=== PATIENT | female | born 1960 | race Caucasian/White ===

== ENCOUNTER 2023-11-11 16:19 | Outpatient (OUT) | payer OTHER, SELFPAY ==
--- NOTE | 2023-11-11 16:33 | XR_ITS ---
The [address] [address] Patient Name: IRAJ MOFFETT MRN: [id number] date: 1960 Sex: F Assigned Patient Location: LAB Current Patient Location: LAB Accession/Order Number: [id number] Exam Date: 11/11/2023 16:45 Report Date: 11/11/2023 19:17 At the request of: ULISES BACK Procedure: XR cervical spine 5V EXAM: XR cervical spine 5V HISTORY: neck pain M54.2 COMPARISON: 04/10/2020, 08/26/2018 x-ray. TECHNIQUE: AP, open-mouth AP, lateral, right and left oblique x-ray cervical spine. FINDINGS: Normal mineralization without fracture or focal bone lesion. Mild C3-4 disc space narrowing, C5-6 disc space narrowing at C6-7 disc space narrowing with minimal osteophytes unchanged. C2-3, C4-5 disc space is normal. Neural foramina are not optimally visualized on the left, lower right foramina widely patent. Upper right foramen are not optimally visualized. Normal prevertebral soft tissues and airway. Surgical clips from previous thyroid surgery again noted. XR/XR cervical spine 5V IMPRESSION: Stable cervical spine without fracture or acute abnormality. Degenerative disc disease [id number] unchanged. Electronically authenticated by: MALVIN MARCUS Date: 11/11/2023 19:17
[2023-11-11 17:10] LABS: Free T3 2.37 pg/mL (2.18-3.98); Thyroid Stimulating Hormone 1.296 uIU/mL (0.358-3.740)
== END 2023-11-11 16:20 | disposition home or self-care (01) ==
LOC: LAB 16:19
PROVIDERS: PCP Family Medicine; Visit Provider Family Medicine
DX: Z00.00 Encounter for general adult medical examination without abnormal findings (principal); E55.9 Vitamin D deficiency, unspecified; M54.2 Cervicalgia
CPT/HCPCS: 36415; 72050; 82306; 84436; 84443; 84481

== ENCOUNTER 2024-02-21 10:58 | Outpatient (OUT) | payer OTHER, SELFPAY ==
--- OUTSIDE RECORDS SUMMARY | 2024-02-21 11:03 | XMS_ITS | CCD ---
Author Organization [facility] Care Team Providers Care Dentures Lab Technician Name Role Phone Ulsies Szymanski Primary Care Physician [phone] Ulises Szymanski MD Primary Care Provider [phone] Ulises Szymanski MD Primary Care Provider [phone] NAZANIN, DR MONTGOMERY Consulting Unavailable HOY, DR MONTGOMERY Primary Care Unavailable HOY, DR MONTGOMERY Admitting Unavailable HOY, DR MONTGOMERY Attending Unavailable HOY, DR MONTGOMERY Primary Care Unavailable HOY, DR MONTGOMERY Admitting Unavailable HOY, DR MONTGOMERY Attending Unavailable HOY, DR MONTGOMERY Consulting Unavailable HOY, DR MONTGOMERY Primary Care Unavailable HOY, DR MONTGOMERY Admitting Unavailable HOY, DR MONTGOMERY Attending Unavailable ZIEBER, DR FABY Vargas Consulting Unavailable NAZANIN, DR MONTGOMERY Consulting Unavailable CHARMAINEY, DR MONTGOMERY Primary Care Unavailable HOY, DR MONTGOMERY Admitting Unavailable HOY, DR MONTGOMERY Attending Unavailable WEST, DR GIAN Barnes Consulting Unavailable CHARMAINEY, DR MONTGOMERY Consulting Unavailable CHARMAINEY, DR MONTGOMERY Primary Care Unavailable HOY, DR MONTGOMERY Admitting Unavailable HOY, DR MONTGOMERY Attending Unavailable WEST, DR GIAN Barnes Consulting Unavailable Ulises Szymanski MD Primary Care Provider [phone] Patience VILLEGAS Attending Unavailable Patience VILLEGAS Referring Unavailable ULISES SZYMANSKI Primary Care Unavailable Patience VILLEGAS Referring Unavailable ULISES SZYMANSKI Primary Care Unavailable KhadijahFlakita deana Macario Admitting Unavailable KhadijahHarpreetNaomi J Attending Unavailable Khadijah Naomi J Referring Unavailable REFERRAL, SELF Admitting Unavailable REFERRAL, SELF Attending Unavailable Khadijah, Naomi J Consulting Unavailable Khadijah, Naomi J Referring Unavailable Khadijah, Naomi J Consulting Unavailable Khadijah, Naomi J Consulting Unavailable Khadijah, Naomi J Admitting Unavailable Khadijah, Naomi J Attending Unavailable Medications Current Medications Medication Drug Class(es) Dates Sig (Normalized) Sig (Original) Acetaminophen (1 source) Start: 04-13-2012 take 2 tablets by mouth once daily at bedtime Tylenol PM 500 mg-25 mg Tab 2 tab(s), Oral, Once a day (at bedtime), Refill(s) 0, Pain Start Date: 04/13/12 Status: Ordered acetaminophen 500 mg / diphenhydrAMINE citrate 38 mg oral tablet (9 sources) Histamine-1 Receptor Antagonist Start: 04-13-2012 take 2 tablets by mouth once daily at bedtime Tylenol PM 500 mg-25 mg Tab 2 tab(s), Oral, Once a day (at bedtime), Refill(s) 0, Pain Start Date: 04/13/12 Status: Ordered diphenhydrAMINE- Acetaminophen (TYLENOL PM EXTRA STRENGTH) 25-500 mg tab Take by mouth. 0 Active Comment on above: Take by mouth. cetirizine hydrochloride 10 mg oral tablet (10 sources) Histamine-1 Receptor Antagonist Start: 7 take 10 mg by mouth once daily cetirizine 10 mg, Oral, Daily, Refills(s) 0, Allergy symptoms Start Date: 09/24/17 Status: Ordered Cetirizine 10 mg cap Take by mouth. 0 Active Comment on above: Take by mouth. Combipatch (5 sources) Estrogen Start: 7 Combipatch 0.05-0.14 mg/ hr, Topical, q3day, Refill(s) 0, control/menstrual regulation Start Date: 09/23/17 Status: Ordered Multivitamin, Therapeutic w/ Minerals (5 sources) Start: 7 take 1 tablet by mouth once daily Multivitamin, Therapeutic w/ Minerals 1 tab(s), Oral, Daily, Refill(s) 0, Prophylaxis Start Date: 09/23/17 Status: Ordered pantoprazole 40 mg extended release oral tablet (10 sources) Proton Pump Inhibitor Start: 7 take 40 mg by mouth twice daily Protonix 40 mg, Oral, BID, Refills(s) 0, Control of stomach acid Start Date: 09/23/17 Status: Ordered take 1 tablet by mouth once rin y pantoprazole DR (PROTONIX) 40 mg tablet Take 40 mg by mouth once daily. 0 Active Comment on above: Take 40 mg by mouth once daily. Vitamin D (5 sources) Start: 03-12-2019 take 1 dose by mouth every month Vitamin D unknwn dose, Oral, qMonth, Refills(s) 0, Prophylaxis Start Date: 03/12/19 Status: Ordered Completed/Discontinued Medications Medication Drug Class(es) Dates Sig (Normalized) Sig (Original) alendronic acid 70 mg oral tablet (5 sources) Bisphosphonate take 1 tablet by mouth every week in the morning alendronate (FOSAMAX) 70 mg tablet Take 70 mg by mouth one time a week. In AM with cup of water on empty stomach. Nothing else by mouth and stay upright for 30 min. 0 Active Comment on above: Take 70 mg by mouth one time a week. In AM with cup of water on empty stomach. Nothing else by mouth and stay upright for 30 min. apixaban 5 mg oral tablet (3 sources) Factor Xa Inhibitor End: 07-01-2022 apixaban (ELIQUIS) 5 mg tab(s) Take by mouth twice daily. 0 07/01/2022 Discontinued (Discontinued by another Health Care Provider) Comment on above: Take by mouth twice daily. Aspirin (5 sources) Platelet Aggregation Inhibitor, Nonsteroidal Anti-inflammatory Drug BABY ASPIRIN ORAL Take by mouth. 0 Active Comment on above: Take by mouth. cholecalciferol 5500 unt / vitamin k2 0.2 mg oral tablet (6 sources) Vitamin D Start: 02-09-2019 End: 07-01-2023 DOSOQUIN 5,500-200 unit-mcg tab Comment on above: Take by mouth. levothyroxine sodium 0.1 mg oral tablet (10 sources) l-Thyroxine Start: 06-17-2023 take 1 tablet by mouth once daily levothyroxine (SYNTHROID) 100 mcg tablet Take 1 tablet by mouth once daily. 90 tablet 3 06/17/2023 Active Start: 06-26-2021 End: 06-21-2022 take 1 tablet by mouth once daily levothyroxine (SYNTHROID) 100 mcg tablet Take 1 tablet by mouth once daily. 90 tablet 3 06/21/2022 Active Start: 09-23-2017 Synthroid 112 microgram, Oral, Daily, Refills(s) 0, Thyroid Start Date: 09/23/17 Status: Ordered Comment on above: Take 1 tablet by kavon th once daily. simvastatin 20 mg oral tablet (5 sources) HMG-CoA Reductase Inhibitor take 1 tablet by mouth once daily at bedtime simvastatin (ZOCOR) 20 mg tablet Take 20 mg by mouth daily at bedtime. 0 Active Comment on above: Take 20 mg by mouth daily at bedtime. Zinc (5 sources) Zinc 50 mg tab T danna by mouth. 0 Active Comment on above: Take by mouth. Problems Active Problems Problem Classification Problem Date Documented Date Episodic/Chronic Abdominal pain (4 sources) Unspecified abdominal pain; Translations: [UNSPECIFIED ABDOMINAL PAIN] Onset: 08-02-2022 Episodic Calculus of urinary tract (5 sources) Calculus of kidney; Translations: [CALCULUS OF KIDNEY] Onset: 08-01-2022 Episodic Cancer of thyroid (10 sources) Malignant tumor of thyroid gland; Translations: [Malignant neoplasm of thyroid gland] Onset: 05-30-2014 03-12-2019 Chronic Cancer of thyroid (9 sources) History of malignant neoplasm of thyroid; Translations: [Personal history of malignant neoplasm of thyroid] Onset: 06-07-2015 Episodic Esophageal disorders (5 sources) Gastroesophageal reflux disease 03-12-2019 Chronic Past or Other Problems Problem Classification Problem Date Documented Da te Episodic/Chronic Pulmonary heart disease (4 sources) Other pulmonary embolism without acute cor pulmonale; Translations: [OTH PULM EMBO W/O AC COR PULMONALE] Onset: 09-21-2021 Episodic Results Test Name Value Interpretation Reference Range Facility [facility] Mamm Screen w/CAD if perf and 3D B[place] 10-08-2023 [facility] Mamm Screen w/CAD if perf and 3D [place] Exam Date/Time: 10/03/2023 15:20 EST Reason for Exam: SCREENING Report IMPRESSION: BIRADS 1 NEGATIVE, NORMAL INTERVAL FOLLOW-UP Follow-up: 12 MONTH RECALL Density: Heterogeneously dense. Vascular calcifications: Absent. EXAM: MA Mamm Screen w/CAD if perf and 3D [place] DATE: 10/03/2023 2:59 PM CLINICAL HISTORY: SCREENING. COMPARISONS: 09/13/2022, 07/28/2021, 03/09/2020, and breast MRI 05/20/2023. TECHNIQUE: Routine full-field digital mammograms and 3D breast tomosynthesis of both breasts were obtained. FINDINGS: There are no developing masses, suspicious microcalcifications, or areas of architectural distortion identified on the current study. No significant changes are identified from the prior studies, given differences in technique and positioning. Dense Breast: Yes. CAD analysis was performed and used in the interpretation. Board Certified Radiologists. Accredited by the ACR and FDA. MAMMOGRAPHY IS VERY IMPORTANT TO YOUR HEALTH. THE CURRENT [employer] AND [employer] COMPREH[employer] NETWORK GUIDELINES RECOMMENDS ANNUAL MAMMOGRAPHY BEGINNING AT AGE 40. THIS FACILITY UTILIZES A REMINDER SYSTEM TO ENSURE ALL PATIENTS RECEIVE REMINDER NOTIFICATIONS AT THE APPROPRIATE TIME BASED ON THE RECOMMENDATIONS OF THIS EXAM. Report Ordering Provider: REFERRAL, SELF FINAL REPORT Dictated: 10/08/2023 3:48 pm Clive Haskins MD Signed (Electronic Signature): 10/08/2023 3:48 pm Signed by: Clive Haskins MD Transcribed by: JAKE Technologist: JOSIAS Assessment: BI-RADS Category 1-Negative Recommendation: Normal interval follow-up [facility] Consent for Treatmenton 09-13 Consent for Treatment [id number] #1.00TIFF [facility] CNOVon 07-01-2023 CNOV Office Visit (RADTSA) MARTITA MOFFETT ([id number]) 1960 F Date Time Provider Department 07/01/23 4:00 PM Patience VILLEGAS During your visit today, we recorded the following information about you: Temperature Pulse Respiration Blood pressure 97.2 degrees 64/minute 16/minute 104/72 Weight 78 kg Patience Villegas MD 07/01/2023 4:33 PM Signed Radiation Oncology - Follow Up Note PATIENT NAME: Martita Moffett PATIENT DIAGNOSIS: Thyroid cancer INTERVAL HISTORY: Doing well. Denies new problems. 06/20/21:Earlier this year patient developed severe recurrent infection with pneumonia hypercoagulability, was inpatient for some time. She has since recovered and is back to work without significant residual issues. LABORATORY: Latest Reference Range AND Units 06/13/21 08:11 06/21/22 13:18 06/24/23 15:43 T4 5.5 - 10.2 ug/dL 8.8 9.8 8.2 TSH 0.270 - 4.200 mIU/L 1.280 0.855 0.345 Thyroglobulin Ab <14.4 IU/mL <1.0 <1.0 Thyroglobulin 1.6 - 59.9 ng/mL <0.2 (L) <0.2 (L) Thyroglobulin Ab, Serum <4.0 IU/mL <0.9 Thyroglobulin, Serum 1.6 - 50.0 ng/mL <0.1 (L) (L): Data is abnormally low Recent labs, 05/14/19: T4 11.1, TSH 0..146, thyroglobulin < 0.1, anti-thyroglobulin antibody <2 05/22/20: T4 11.0, TSH 0.1.303, thyroglobulin < 0.1, anti-thyroglobulin antibody <2 06/13/21: T4 8.8, TSH 1.280, thyroglobulin < 0.2, anti-thyroglobulin antibody <1.0 ALLERGIES: ALLERGIES No Known Allergies MEDICATIONS: vitamin D3-vitamin K2 (DOSOKAP) 137.5-200 mcg tab Take by mouth. levothyroxine (SYNTHROID) 100 mcg tablet Take 1 tablet by mouth once daily. pantoprazole DR (PROTONIX) 40 mg tablet Take 40 mg by mouth once daily. alendronate (FOSAMAX) 70 mg tablet Take 70 mg by mouth one time a week. In AM with cup of water on empty stomach. Nothing else by mouth and stay upright for 30 min. simvastatin (ZOCOR) 20 mg tablet Take 20 mg by mouth daily at bedtime. Zinc 50 mg tab Take by mouth. diphenhydrAMINE-Acet aminophen (TYLENOL PM EXTRA STRENGTH) 25-500 mg tab Take by mouth. BABY ASPIRIN ORAL Take by mouth. Cetirizine 10 mg cap Take by mouth. REVIEW OF SYSTEMS: PAIN ASSESSMENT: Negative for pain, history of chronic pain, or current treatment for a chronic pain condition. GENERAL: No weight loss, malaise or fevers. NECK: Negative for goiter, pain or significant neck swelling RESPIRATORY: Negative for cough, hemoptysis, wheezing, COPD, dyspnea or shortness of breath GI: No nausea, vomiting, or diarrhea NEURO: No history of headaches, syncope, paralysis, seizures or tremors The remainder of the review of systems is negative. PHYSICAL EXAM: VS: BP 104/72 Pulse 64 Temp 36.2 ?C (97.2 ?F) Resp 16 Wt 78 kg (172 lb) SpO2 99% KPS: 100 General Appearance: Well appearing, alert, in no acute distress, well-hydrated, well nourished.. Skin: Skin color, texture, turgor normal, no suspicious rashes or lesions. Neck: Supple, no adenopathy or masses notable Lymph Nodes: No cervical lymphadenopathy, No supraclavicular lymphadenopathy ASSESSMENT AND PLAN: 1. Papillary thyroid carcinoma: Doing well with undetectable thyroglobulin. 2. Synthroid suppressive therapy: Labs show appropriate TSH suppression and T4 replacement. Recommend continued current dose. Plan see patient back in one year with repeat thyroglobulin and thyroid function tests. Signed by: Patience Villegas MD Portions of the above note extracted and edited from previous visit as well as active information included in the EMR. Referring Provider: Patience VILLEGAS [[id number]] Allergies As of Date: 07/01/2023 (No Known Allergies) Date Reviewed: 07/01/2023 Reviewed by: Kati Nolen LPN - Fully Assessed Reason for Visit: Thyroid Cancer [879] Primary Visit Diagnosis:History of thyroid cancer [Z85.850] Order(s):TSH BLD [SQTSH] Order #: [id number] FUTURE T4/THYROXINE BLOOD [SQT4] Order #: [id number] FUTURE THYROGLOBULIN BY MASS SPECTROMETRY [SQTGMSMS] Order #: [id number] FUTURE Prescriptions as of 07/01/2023 - vitamin D3-vitamin K2 (DOSOKAP) 137.5-200 mcg tab Take by mouth. - levothyroxine (SYNTHROID) 100 mcg tablet Take 1 tablet by mouth once daily. - pantoprazole DR (PROTONIX) 40 mg tablet Take 40 mg by mouth once daily. - alendronate (FOSAMAX) 70 mg tablet Take 70 mg by mouth one time a week. In AM with cup of water on empty stomach. Nothing else by mouth and stay upright for 30 min. - simvastatin (ZOCOR) 20 mg tablet Take 20 mg by mouth daily at bedtime. - Zinc 50 mg tab Take by mouth. - diphenhydrAMINE-Acet aminophen (TYLENOL PM EXTRA STRENGTH) 25-500 mg tab Take by mouth. - BABY ASPIRIN ORAL Take by mouth. - Cetirizine 10 mg cap Take by mouth. Problem List As Of Date 07/01/2023 Noted Resolved Malignant neoplasm of thyroid gland (HCC) [C73] 05/30/2014 History of thyroid cancer [Z85.850] (more content not included)... Normal [facility] T4 SerPl-mCncon 06-24-2023 T4 [Mass/Vol] 8.2 ug/dL Normal 5.5-10.[address] [facility] Comment on above: Order Comment: Omar acosta Type: BLOOD SPECIMEN Ordering Facility: [facility] Address: [address] [place] [address] Performed By: #### 3 016-3, 3026-2 #### [facility] CLIA [id number] [address] [place] [address] [place] TSH SerPl-aCncon 06-24-2023 TSH Qn 0.345 m[IU]/L Normal 0.270-4.[address] [facility] Comment on above: Order Comment: Omar [facility] Type: BLOOD SPECIMEN Ordering Facility: [facility] Address: [address] [place], [place] [id number] Performed By: #### 3 016-3, 3026-2 #### [facility] CLIA [id number] [address] [place] [address] [place] Thyroglobulin and Thyrogobul in Ab panelon 06-24-2023 Thyroglobulin Ab Qn [IU]/mL Normal <4.0 [facility] Comment on above: Order Comment: Omar acosta Type: BLOOD SPECIMEN Ordering Facility: [facility] Address: [address] [place], [place] [id number] Result Comment: The Thyroglobulin Antibody test was performed using the Haja Vasyl Unicel DXI paramagnetic particle chemiluminescent immunoassay method. Results obtained with different assay methods or kits cannot be used interchangeably. Performed By: #### 5 7780-9 #### [facility] CLIA [id number] [address] [place] [address] [place] THYROGLOBULIN, SERUM <0.1 Low 1.6-50.0 [facility] Comment on above: Order Comment: Speci karla Type: BLOOD SPECIMEN Ordering Facility: [facility] Address: [address] [place] [address] Result Comment: The Thyroglobulin test was performed using the [employer] Vasyl Unicel DXI paramagnetic particle chemiluminescent immunoassay method. Results obtained with different assay methods or kits cannot be used interchangeably. Performed By: #### 5 7780-9 #### [facility] CLIA [id number] [address] [place] [address] [place] 06-18-2023 LAZN Telephone (RADTSA) MARTITA MOFFETT ([id number]) 1960 F Date Time Provider Department 06/18/23 Patience VILLEGAS During your visit today, we recorded the following information about you: Kati Nolen LPN 06/18/2023 9:44 AM Signed Please sign pended lab orders for upcoming yearly follow up. Kati Nolen LPN Allergies As of Date: 06/18/2023 (No Known Allergies) Date Reviewed: 06/20/2021 Reviewed by: Janie Sellers, SWEETIE - Fully Assessed Reason for Visit: Orders [681] Primary Visit Diagnosis:History of thyroid cancer [Z85.850] Order(s):TSH BLD [SQTSH] Order #: [id number] FUTURE T4/THYROXINE BLOOD [SQT4] Order #: [id number] FUTURE THYROGLOBULIN, SERUM WITH REFLEX TO IA OR LC-MS/MS [SQTHYRORF] Order #: [id number] FUTURE Prescriptions as of 06/18/2023 - levothyroxine (SYNTHROID) 100 mcg tablet Take 1 tablet by mouth once daily. - pantoprazole DR (PROTONIX) 40 mg tablet Take 40 mg by mouth once daily. - alendronate (FOSAMAX) 70 mg tablet Take 70 mg by mouth one time a week. In AM with cup of water on empty stomach. Nothing else by mouth and stay upright for 30 min. - simvastatin (ZOCOR) 20 mg tablet Take 20 mg by mouth daily at bedtime. - Zinc 50 mg tab Take by mouth. - diphenhydrAMINE-Acet aminophen (TYLENOL PM EXTRA STRENGTH) 25-500 mg tab Take by mouth. - BABY ASPIRIN ORAL Take by mouth. - DOSOQUIN 5,500-200 unit-mcg tab - Cetirizine 10 mg cap Take by mouth. Problem List As Of Date 06/18/2023 Noted Resolved Malignant neoplasm of thyroid gland (HCC) [C73] 05/30/2014 History of thyroid cancer [Z85.850] 06/07/2015 Encounter Status:Closed by Patience VILLEGAS on 06/18/[address] [facility] MRI Breast w/o and w/ Contra Bilaton 05-22-2023 MRI Breast w/o and w/ Contrast, Bilat Exam Date/Time: 05/20/2023 15:13 EDT Reason for Exam: M12.39, Z80.3 Report IMPRESSION: BIRADS 1 NEGATIVE, NORMAL INTERVAL FOLLOW-UP EXAM: MRI Breast w/o and w/ Contrast, Bilat DATE: 05/20/2023 CLINICAL HISTORY: M12.39, Z80.3. COMPARISONS: Breast MRI 02/19/2022 and screening mammograms 09/13/2022. TECHNIQUE: This study was performed on a 1.5 Claire magnet. A dedicated in vivo seven channel breast coil was used. T1 weighted images and fat sat T2 weighted images were initially obtained. Dynamic Breast MR imaging was then performed with fat sat pre and post-T1 weighted images after the patient received 20 cc of MultiHance gadolinium contrast. Multiplanar images of both breasts were displayed. Post-contrast MIP; time-signal intensity curves; angio-maps; and subtraction images were generated at the dedicated breast DynaCad workstation FINDINGS: Both breasts are heterogeneously dense with minimal background parenchymal enhancement. There are no suspicious masses, areas of abnormal masslike enhancement, suspicious lymphadenopathy, or other findings of concern identified. CAD analysis was performed and used in the interpretation. Board Certified Radiologists. Accredited by the ACR and FDA. MAMMOGRAPHY IS VERY IMPORTANT TO YOUR HEALTH. THE CURRENT [employer] AND NATIONAL COMPREHENSIVE CANCER NETWORK GUIDELINES RECOMMENDS ANNUAL MAMMOGRAPHY BEGINNING AT AGE 40. THIS FACILITY UTILIZES A REMINDER SYSTEM TO ENSURE ALL PATIENTS RECEIVE REMINDER NOTIFICATIONS AT THE APPROPRIATE TIME BASED ON THE RECOMMENDATIONS OF THIS EXAM. Report \X09\ Ordering Provider: Naomi Lucio FINAL REPORT Dictated: 05/22/2023 4:01 pm Clive Haskins MD Signed (Electronic Signature): 05/22/2023 4:01 pm Signed by: Clive Haskins MD Transcribed by: JAKE Technologist: DANETTE Assessment: BI-RADS Category 1-Negative Recommendation: Normal interval follow-up Technical Comments MultiHance Contrast amount in ml's: 15 Normal [facility] CHEMISTRYOrdered By: SYSTEM SYSTEM on 05-20-2023 25-hydroxyvitamin D3 [Mass/Vol] 40.2 ng/mL Normal 30.0 - 100.0 ng/mL [facility] [place]isol Calcium [Mass/Vol] 9.4 mg/dL Normal 8.9 - 11. 1 mg/dL [facility] Remisol Creatinine [Mass/Vol] 0.9 mg/dL Normal 0.5 - 1.3 mg/dL [facility] Remisol GFR/1.73 sq M.predicted among non-blacks MDRD (S/P/Bld) [Vol rate/Area] 72 mL/min/1.73 m2 Normal >=59mL/min/1. 73 m2 [facility] Chem S Calciumon 05-20-2023 Calcium [Mass/Vol] 9.4 mg/dL Normal 8.9-11.1 [facility] Comment on above: Performed By: #### 5 [id number] #### [facility] [address] [place] [address] Consent for Treatmenton Consent for Treatment [id number] #1.00CD:127 Normal [facility] Creatinineon 05-20-2023 Creatinine [Mass/Vol] 0.9 mg/dL Normal 0.5-1.3 [facility] Comment on above: Performed By: #### 5 [id number], [id number], [id number], [id number] #### [facility] [address] [place] [address] Physician Orderon 05-20-2023 Physician Order [id number] 0#1.00CD:127 Normal [facility] RAD - MRI Screening Formon 0 05-20-2023 RAD - MRI Screening Form [id number] 1#1.00CD:127 Normal [facility] Vitamin D 25 Hydroxyon 05-20 25-hydroxyvitamin D3 [Mass/Vol] 40.2 ng/mL Normal 30.0-100.0 [facility] Comment on above: Result Comment: Vit jurado D deficiency has been defined as a level of serum 25-OH vitamin D less than 20 ng/mL (1,2) by the [place] [employer] and an Endocrine Society practice guideline. The Endocrine Society further defined vitamin D insufficiency as a level between 21 and 29 ng/mL (2). 1. IOM ([place] [employer]). 2010. Dietary reference intakes for calcium and D. [place]: The National Academies Press. 2. Ekta MF, Roxanna NC, Genesis HIGHTOWER, et al. Evaluation, treatment, and prevention of vitamin D deficiency: an Endocrine Society clinical practice guideline. JCEM. 2011 Apr; 96 (7):1911-30. Performed By: #### 5 [id number], [id number], [id number], [id number] #### [facility] [address] [place] [address] eGFRon 05-20-2023 GFR/1.73 sq M.predicted among non-blacks MDRD (S/P/Bld) [Vol rate/Area] 72 mL/min/1.73 m2 Normal >=59 [facility] Comment on above: Order Comment: Order added by Discern Expert. Result Comment: Computer Peripheral Equipment Operator sara kidney disease could be indicated at eGFR's of less than 60 mL/min/1.73m2. Kidney failure is indicated at less than 15 mL/min/1.73m2. Performed By: #### 5 [id number], [id number], [id number], [id number] #### [facility] [address] [place] [address] Physician Orderon 05-19-2023 Physician Order [id number] 7#1.00CD:127 Normal [facility] Physician Orderon 05-09-2023 Physician Order [id number] #1.00CD:127 Normal [facility] PAP [id number] 04-28-2023 Cytology report Cyto stain Doc (Cvx/Vag) Note Invalid Interpretation Code [facility] Comment on above: Result Comment: TEST S RESULT FLAG UNITS REF RANGE LAB Clinician Provided Cytology Information Source.............Endocervix No. of containers..01 ThinPrep Vial DIAGNOSIS: 01 NEGATIVE FOR INTRAEPITHELIAL LESION OR MALIGNANCY. CELLULAR CHANGES ASSOCIATED WITH ATROPHY ARE PRESENT. Specimen adequacy: 01 Satisfactory for evaluation. Endocervical component may not be distinguished in cases of atrophy. Performed by: Cristofer Padilla Food And Beverage Checker (ASCP) . 01 Note: Note 01 The Pap smear is a screening test designed to aid in the detection of premalignant and malignant conditions of the uterine cervix. It is not a diagnostic procedure and should not be used as the sole means of detecting cervical cancer. Both false-positive and false-negative reports do occur. Test Methodology: Note 01 This liquid based ThinPrep(R) pap test was screened with the use of an image guided system. FLAG LEGEND: L-Low Normal,H-High Normal,LL-Alert Low,HH-Alert High <-Panic Low,>-Panic High,A-Abnormal,AA-Critical Abnormal Performed at: [address] [id number] Elda Sullivan MD, Performed By: #### 3 [id number] #### [facility] [address] [place] [address] HPV 16+18+31+33+35+39+45+ 51+52+56+58+59+66+68 DNA Probe+sig amp Ql (Cvx) Negative Invalid Interpretation Code Negative [facility] Comment on above: Result Comment: This nucleic acid amplification test detects fourteen high-risk HPV types (16,18,31,33,35,39,45,51,52,56,58,59,66,68) without differentiation. Performed at: [facility] [id number] MD Laurie Schroeder Performed at: =[facility] [id number] MD Laurie Schroeder Performed By: #### [id number] #### [facility] [address] [place] [address] PAP [id number] 04-23-2023 Gynecological Body Site ENDOCERVIX Normal [facility] Comment on above: Performed By: #### [id number] #### [facility] [address] [place] [address] Physician Orderon 04-23-2023 Physician Order [id number] [id number] Normal [facility] CT ABD/PELVIS WO CONon 08-02 CT ABD/PELVIS WO CON EXAMINATION: CT ABD/PELVIS WO CON, 08/02/2022 8:57 AM EDT HISTORY: Flank pain COMPARISON: None. TECHNIQUE: CT scan of the abdomen and pelvis was performed without IV contrast. CT dose reduction technique was used, including Automated Exposure Control. FINDINGS: LUNG BASES: No visible pulmonary or pleural disease. LIVER: No enlargement, atrophy, abnormal density, or significant focal lesion. BILIARY: No dilatation or calcification. PANCREAS: Moderate diffuse atrophy SPLEEN: No enlargement or focal lesion. ADRENALS: No mass or enlargement. KIDNEYS: No mass, obstruction, or calcification. BOWEL/MESENTERY: No visible mass, obstruction, or bowel wall thickening. AORTA/VASCULAR: No aortic aneurysm. Mild atherosclerosis RETROPERITONEUM: No mass or adenopathy. LYMPH NODES: No adenopathy. URINARY BLADDER: No visible focal wall thickening, lesion, or calculus. PELVIC ORGANS: No visible mass. Pelvic organs appropriate for patient age. ABDOMINAL WALL: No mass or hernia. BONES: No bony lesion or fracture. OTHER: Negative. IMPRESSION: No obstructive uropathy Electronically authenticated by: GIAN LEIVA Date: 2022-08-02 13:33 Normal [facility] XR KUB 1 VIEWon 08-01-2022 XR KUB 1 VIEW EXAMINATION: XR KUB 1 VIEW HISTORY: Kidney stone COMPARISON: No relevant comparison available. FINDINGS: KIDNEY/URETER - RIGHT: No visible renal or ureteral calcifications. KIDNEY/URETER - LEFT: No visible renal or ureteral calcifications. PELVIS: No visible ureteral calcifications. Any visible calcifications favor phleboliths. BOWEL: No abnormal dilation or deviation. BONES: No acute abnormality. OTHER: Negative. No abnormal gaseous collections. IMPRESSION: No definite urinary tract calculi Electronically authenticated by: GIAN LEIVA Date: 2022-08-01 12:01 Normal [facility] CBC AUTO DIFFon 05-30-2022 BASO # 0.1 103/ul Normal 0.0-0.1 [facility] Comment on above: Performed By: #### H FPFCBC #### [facility] [address] [place] [address] Dr. Franchesca Ramos Basophils/100 WBC (Bld) 1.0 % Normal 0.2-2.0 [facility] Comment on above: Performed By: #### H FPFCBC #### [facility] [address] [place] [address] Dr. Franchesca Ramos EO # 0.1 103/ul Normal 0.0-0.7 [facility] Comment on above: Performed By: #### H FPFCBC #### [facility] [address] [place] [address] Dr. Franchesca Ramos Eosinophils/100 WBC (Bld) 1.4 % Normal 0.9-7.0 [facility] Comment on above: Performed By: #### H FPFCBC #### [facility] [address] [place] [address] Dr. Franchesca Ramos Erythrocyte distribution width (RBC) [Ratio] 12.8 % Normal 11.0-15.0 [facility] Comment on above: Performed By: #### H FPFCBC #### [facility] [address] [place] [address] Dr. Franchesca Ramos Hematocrit (Bld) [Volume fraction] 40.5 % Normal 36.0-48.0 [facility] Comment on above: Performed By: #### H FPFCBC #### [facility] [address] [place] [address] Dr. Franchesca Ramos Hemoglobin (Bld) [Mass/Vol] 13.6 g/dL Normal 12.0-16.0 [facility] Comment on above: Performed By: #### H FPFCBC #### [facility] [address] [place] [address] Dr. Franhcesca Ramos IG # 0.02 10e3/ul Normal 0.00-0.03 [facility] Comment on above: Performed By: #### H FPFCBC #### [facility] [address] [place] [address] Dr. Franchesca Ramos IG % 0.3 % Normal 0.0-0.5 [facility] Comment on above: Performed By: #### H FPFCBC #### [facility] [address] [place] [address] Dr. Franchesca Ramos LYMPH # 2.6 103/ul Normal 1.2-3.8 [facility] Comment on above: Performed By: #### H FPFCBC #### [facility] [address] [place] [address] Dr. Franchesca Ramos Lymphocytes/100 WBC (Bld) 44.3 % Normal 20.5-60.0 [facility] Comment on above: Performed By: #### H FPFCBC #### [facility] [address] [place] [address] Dr. Franchesca Ramos MCH (RBC) [Entitic mass] 31.7 pg Normal 26.7-34.0 [facility] Comment on above: Performed By: #### H FPFCBC #### [facility] [address] [place] [address] Dr. Franchesca Ramos MCHC (RBC) [Mass/Vol] 33.6 g/dL Normal 29.9-35.2 [facility] Comment on above: Performed By: #### H FPFCBC #### [facility] [address] [place] [address] Dr. Franchesca Ramos MCV (RBC) [Entitic vol] 94.4 fL Normal 81.0-99.0 [facility] Comment on above: Performed By: #### H FPFCBC #### [facility] [address] [place] [address] Dr. Franchesca Ramos MONO # 0.5 103/ul Normal 0.3-0.8 [facility] Comment on above: Performed By: #### H FPFCBC #### [facility] [address] [place] [address] Dr. Franchesca Ramos Monocytes/100 WBC (Bld) 8.5 % Normal 1.7-12.0 [facility] Comment on above: Performed By: #### H FPFCBC #### [facility] [address] [place] [address] Dr. Franchesca Ramos NEUT # 2.6 103/ul Normal 1.4-6.5 [facility] Comment on above: Performed By: #### H FPFCBC #### [facility] [address] [address] [address] Franchesca Ramos Neutrophils/100 WBC (Bld) 44.5 % Normal 43.0-75.0 [facility] Comment on above: Performed By: #### H FPFCBC #### [facility] [address] [address] [address] Franchesca Ramos Platelet mean volume (Bld) [Entitic vol] 10.2 fL Normal 9.5-13.5 [facility] Comment on above: Performed By: #### H FPFCBC #### [facility] [address] [place] [address] Dr. Franchesca Ramos PLT 241 103/ul Normal 150-450 [facility] Comment on above: Performed By: #### H FPFCBC #### [facility] [address] [place] [address] Dr. Franchesca Ramos RBC 4.29 106/ul Normal 4.20-5.40 [facility] Comment on above: Performed By: #### H FPFCBC #### [facility] [address] [address] [address] Franchesca Ramos WBC 5.9 103/ul Normal 4.0-11.0 [facility] Comment on above: Performed By: #### H FPFCBC #### [facility] [address] [place] [address] Dr. Franchesca Ramos HEALTHFAIR PROFILEon 022 Albumin [Mass/Vol] 4.0 g/dL Normal 3.4-5.0 [facility] Comment on above: Performed By: #### H FPF #### [facility] [address] [place] [address] Dr. Franchesca Ramos Albumin/Globulin [Mass ratio] 1.3 {ratio} Normal [facility] Comment on above: Performed By: #### H FPF #### [facility] [address] [address] [address] Franchesca Ramos ALP [Catalytic activity/Vol] 54 U/L Normal 46-116 [facility] Comment on above: Performed By: #### H FPF #### [facility] [address] [address] [address] Franchesca Ramos ALT [Catalytic activity/Vol] 23 U/L Normal 14-59 [facility] Comment on above: Performed By: #### H FPF #### [facility] [address] [address] [address] Franchesca Ramos AST [Catalytic activity/Vol] 17 U/L Normal 15-37 [facility] Comment on above: Performed By: #### H FPF #### [facility] [address] [address] [address] Franchesca Ramos Bilirubin [Mass/Vol] 0.7 mg/dL Normal 0.2-1.0 [facility] Comment on above: Performed By: #### H FPF #### [facility] [address] [place] [address] Dr. Franchesca Ramos Calcium [Mass/Vol] 8.9 mg/dL Normal 8.5-10.1 [facility] Comment on above: Performed By: #### H FPF #### [facility] [address] [place] [address] Dr. Franchesca Ramos Chloride [Moles/Vol] 104 mmol/L Normal 98-107 [facility] Comment on above: Performed By: #### H FPF #### [facility] [address] [place] [address] Dr. Franchesca Ramos CHOL-HDL RATIO NORM SEE BELOW Normal [facility] Comment on above: Result Comment: 3.3 - 4.4 LOW RISK 4.4 - 7.1 AVERAGE RISK 7.1 - 11.0 MODERATE RISK >11.0 HIGH RISK Performed By: #### H FPF #### [facility] [address] [place] [address] Dr. Fracnhesca Ramos Cholesterol [Mass/Vol] 175 mg/dL Normal <=200 [facility] Comment on above: Performed By: #### H FPF #### [facility] [address] [place] [address] Dr. Franchesca Ramos Cholesterol in HDL [Mass/Vol] 59 mg/dL Normal 40-60 [facility] Comment on above: Performed By: #### H FPF #### [facility] [address] [address] [address] Franchesca Ramos Cholesterol in LDL [Mass/Vol] 92.2 mg/dL Normal [facility] Comment on above: Performed By: #### H FPF #### [facility] [address] [address] [address] Franchesca Ramos Cholesterol.total/Cho lesterol in HDL [Mass ratio] 3.0 {ratio} Normal [facility] Comment on above: Performed By: #### H FPF #### [facility] [address] [place] [address] Dr. Franchesca Ramos CO2 [Moles/Vol] 27.7 mmol/L Normal 21.0-32.0 [facility] Comment on above: Performed By: #### H FPF #### [facility] [address] [address] [address] Franchesca Ramos Creatinine [Mass/Vol] 0.91 mg/dL Normal 0.55-1.02 [facility] Comment on above: Performed By: #### H FPF #### [facility] [address] [place] [address] Dr. Franchesca Ramos Globulin (S) [Mass/Vol] 3.2 g/dL Normal [facility] Comment on above: Performed By: #### H FPF #### [facility] [address] [address] [address] Franchesca Ramos Glucose [Mass/Vol] 89 mg/dL Normal 74-106 [facility] Comment on above: Performed By: #### H FPF #### [facility] [address] [address] [address] Franchesca Ramos HDL NORMAL > or = 60 mg/dl - LOW CARDIOVASCULAR RISK <40 mg/dl - HIGH CARDIOVASCULAR RISK Normal [facility] Comment on above: Performed By: #### H FPF #### [facility] [address] [place] [address] Dr. Franchesca Ramos LDL CALC NORMAL SEE BELOW Normal [facility] Comment on above: Result Comment: <100 mg/dl OPTIMAL 100 - 129 mg/dl NEAR OR ABOVE OPTIMAL 130 - 159 mg/dl BORDERLINE HIGH 160 - 189 mg/dl HIGH >190 mg/dl VERY HIGH Performed By: #### H FPF #### [facility] [address] [address] [address] Franchesca Ramos Potassium [Moles/Vol] 3.8 mmol/L Normal 3.5-5.1 [facility] Comment on above: Performed By: #### H FPF #### [facility] [address] [address] [address] Franchesca Ramos Protein [Mass/Vol] 7.2 g/dL Normal 6.4-8.2 [facility] Comment on above: Performed By: #### H FPF #### [facility] [address] [address] [address] Franchesca Ramos Sodium [Moles/Vol] 139 mmol/L Normal 136-145 [facility] Comment on above: Performed By: #### H FPF #### [facility] [address] [address] [address] Franchesca Ramos Triglyceride [Mass/Vol] 119 mg/dL Normal <=150 [facility] Comment on above: Performed By: #### H FPF #### [facility] [address] [address] [address] Franchesca Ramos TSH 0.648 uIU/mL Normal 0.358-3.740 [facility] Comment on above: Performed By: #### H FPF #### [facility] [address] [address] [address] Franchesca Ramos Urea nitrogen [Mass/Vol] 18.0 mg/dL Normal 7.0-18.0 [facility] Comment on above: Performed By: #### H FPF #### [facility] [address] [address] [address] Franchesca Ramos Urea nitrogen/Creatinine [Mass ratio] 19.8 mg/mg Normal [facility] Comment on above: Performed By: #### H FPF #### [facility] [address] [address] [address] Franchesca Ramos VLDL CALC 23.8 mg/dL Normal [facility] Comment on above: Performed By: #### H FPF #### [facility] [address] [address] [address] Franchesca Ramos CHEMISTRYOrdered By: SYSTEM SYSTEM on 04-16-2022 25-hydroxyvitamin D3 [Mass/Vol] 61.1 ng/mL Normal 30.0 - 100.0 ng/mL [facility] Remisol Calcium [Mass/Vol] 9.5 mg/dL Normal 8.9 - 11. 1 mg/dL [facility] Creatinine [Mass/Vol] 0.7 mg/dL Normal 0.5 - 1.3 mg/dL [facility] Remisol GFR/1.73 sq M.predicted among blacks MDRD (S/P/Bld) [Vol rate/Area] mL/min/1.73 m2 Normal >=59mL/min/1. 73 m2 [facility] Chem S GFR/1.73 sq M.predicted among non-blacks MDRD (S/P/Bld) [Vol rate/Area] mL/min/1.73 m2 Normal >=59mL/min/1. 73 m2 [facility] Chem S CHEMISTRYOrdered By: SYSTEM SYSTEM on 02-19-2022 Creatinine [Mass/Vol] 0.7 mg/dL Normal 0.5 - 1.3 mg/dL [facility] Remisol GFR/1.73 sq M.predicted among blacks MDRD (S/P/Bld) [Vol rate/Area] mL/min/1.73 m2 Normal >=59mL/min/1. 73 m2 [facility] Chem S GFR/1.73 sq M.predicted among non-blacks MDRD (S/P/Bld) [Vol rate/Area] mL/min/1.73 m2 Normal >=59mL/min/1. 73 m2 [facility] Chem S CTA CHEST WO W CONon 021 CTA CHEST WO W CON EXAMINATION: CTA CHEST WO W CON HISTORY: Embolism of right lower lobe, follow-up COMPARISON: CT chest 02/09/2021 TECHNIQUE: Multi-planar CT images were created with IV contrast. Axial, Coronal, and Sagittal images. Dose reduction techniques were achieved by using automated exposure control and/or adjustment of mA and/or kV according to patient size and/or use of iterative reconstruction technique. 3-D reconstruction was performed on a separate workstation. FINDINGS: VASCULATURE: No pulmonary embolism or abnormal opacity. LUNGS: No visible pulmonary disease. PLEURA: No mass, effusion, or pneumothorax. BECKA: No mass or adenopathy. MEDIASTINUM: No mass or adenopathy. CARDIAC: No enlargement, pericardial effusion, or pericardial thickening. AORTA: No aneurysm or dissection. CHEST WALL: No mass or axillary adenopathy. BONES: No bone lesion or fracture. LIMITED ABDOMEN: No suspicious findings. Limited images of the upper abdomen. OTHER: Negative. IMPRESSION: 1. No pulmonary emboli; clearing of previously seen right lower lobe embolus. 2. Clear lungs. Electronically authenticated by: FABY YOUNG Date: 2021-09-23 15:10 Normal [facility] CREATININEon 09-21-2021 Creatinine [Mass/Vol] 0.86 mg/dL Normal 0.52-1.04 [facility] Comment on above: Performed By: #### C MALIK #### [facility] [address] [place] [address] Dr. Franchesca Ramos EGFR-AF MOROCCAN >60 Normal >=60 [facility] Comment on above: Performed By: #### C MALIK #### [facility] [address] [place] [address] Dr. Franchesca Ramos EGFR-NON AF MOROCCAN >60 Normal >=60 [facility] Comment on above: Performed By: #### C MALIK #### [facility] [address] [address] [address] Franchesca Ramos TERESA Antinuclear Antibodieson 12-19-2020 Antinuclear Abs, IFA Positive Critically abnormal . [facility] Comment on above: Result Comment: Nega tive <1:80 Borderline 1:80 Positive >1:80 Performed By: #### C RP, CK, CREAT, CBC, ADDONUAPLUS, ESR #### [facility] [address] [place] [address] #### TERESA, C3, C4 #### [facility] , Homogeneous Pattern 1:160 High . [facility] Comment on above: Performed By: #### C RP, CK, CREAT, CBC, ADDONUAPLUS, ESR #### [facility] [address] #### TERESA, C3, C4 #### [facility] , Note 1 Normal . [facility] Comment on above: Result Comment: A po sitive TERESA result may occur in healthy individuals (low titer) or be associated with a variety of diseases. See interpretation chart which is not all inclusive: Pattern Antigen Detected Suggested Disease Association Homogeneous DNA(ds,ss), SLE - High titers Nucleosomes, Histones Drug-induced SLE Speckled Sm, TICKET COLLECTOR, SCL-70, SLE,MCTD,PSS (diffuse form), SS-A/SS-B Sjogrens Nucleolar SCL-70, PM-1/SCL High titers Scleroderma, PM/DM Centromere Centromere PSS (limited form) w/Crest syndrome variable Nuclear Dot [id number] Primary Biliary Cirrhosis Nuclear GP210, Primary Biliary Cirrhosis Membrane miguel A,B,C Performed at: [address] [id number] Automatic Head Sawyer: Rickie Hancock PhD, Phone: [phone] Performed By: #### C RP, CK, CREAT, CBC, ADDONUAPLUS, ESR #### [address] #### TERESA, C3, C4 #### [facility] , C-Reactive Proteinon 021 C-Reactive Protein 0.6 mg/dL Normal 0.0-1.0 [facility] Comment on above: Result Comment: PERF ORMED BY: [place] [address] PATHOLOGIST METALWORKING INSTRUCTOR MARYLU LINARES M.D. Performed By: #### C RP, CK, CREAT, CBC, ADDONUAPLUS, ESR #### [address] #### TERESA, C3, C4 #### [facility] , Complement C3on 12-19-2020 Complement C3 125 mg/dL Normal 82-167 [facility] Comment on above: Result Comment: Perf ormed at: [address] [id number] Automatic Head Sawyer: Rickie Hancock PhD, Phone: [phone] Performed By: #### C RP, CK, CREAT, CBC, ADDONUAPLUS, ESR #### [address] #### TERESA, C3, C4 #### [facility] , Complement C4on 12-19-2020 Complement C4 21 mg/dL Normal 12-38 [facility] Comment on above: Result Comment: PERF ORMED BY: [place] [address] PATHOLOGIST METALWORKING INSTRUCTOR MARYLU LINARES M.D. Performed By: #### C RP, CK, CREAT, CBC, ADDONUAPLUS, ESR #### [address] #### TERESA, C3, C4 #### [facility] , Complete Blood Count Auto Di ffon 12-19-2020 Basophils (Bld) [#/Vol] 0.0 10*3/uL Normal 0.0-0.2 [facility] Comment on above: Performed By: #### C RP, CK, CREAT, CBC, ADDONUAPLUS, ESR #### [address] #### TERESA, C3, C4 #### [facility] , Basophils/100 WBC (Bld) 0.8 % Normal . [facility] Comment on above: Performed By: #### C RP, CK, CREAT, CBC, ADDONUAPLUS, ESR #### [address] #### TERESA, C3, C4 #### [facility] , Eosinophils (Bld) [#/Vol] 0.0 10*3/uL Normal 0.0-0.45 [facility] Comment on above: Performed By: #### C RP, CK, CREAT, CBC, ADDONUAPLUS, ESR #### [address] #### TERESA, C3, C4 #### [facility] , Eosinophils/100 WBC (Bld) 0.8 % Normal . [facility] Comment on above: Performed By: #### C RP, CK, CREAT, CBC, ADDONUAPLUS, ESR #### [address] #### TERESA, C3, C4 #### [facility] , Erythrocyte distribution width (RBC) [Ratio] 12.9 % Normal 11.9-15.3 [facility] Comment on above: Performed By: #### C RP, CK, CREAT, CBC, ADDONUAPLUS, ESR #### [address] #### TERESA, C3, C4 #### [facility] , Hematocrit (Bld) [Volume fraction] 41.5 % Normal 34.0-46.4 [facility] Comment on above: Performed By: #### C RP, CK, CREAT, CBC, ADDONUAPLUS, ESR #### [place] [address] [place] #### TERESA, C3, C4 #### [facility] , Hemoglobin (Bld) [Mass/Vol] 14.1 g/dL Normal 11.8-15.4 [facility] Comment on above: Performed By: #### C RP, CK, CREAT, CBC, ADDONUAPLUS, ESR #### [address] #### TERESA, C3, C4 #### [facility] , Lymphocytes (Bld) [#/Vol] 2.3 10*3/uL Normal 1.00-4.8 [facility] Comment on above: Performed By: #### C RP, CK, CREAT, CBC, ADDONUAPLUS, ESR #### [place] [address] [place] #### TERESA, C3, C4 #### [facility] , Lymphocytes/100 WBC (Bld) 39.2 % Normal . [facility] Comment on above: Performed By: #### C RP, CK, CREAT, CBC, ADDONUAPLUS, ESR #### [address] #### TERESA, C3, C4 #### [facility] , MCH (RBC) [Entitic mass] 32.2 pg Normal 24.7-34.3 [facility] Comment on above: Performed By: #### C RP, CK, CREAT, CBC, ADDONUAPLUS, ESR #### [address] #### TERESA, C3, C4 #### [facility] , MCV (RBC) [Entitic vol] 95.2 fL Normal 80-100 [facility] Comment on above: Performed By: #### C RP, CK, CREAT, CBC, ADDONUAPLUS, ESR #### [address] #### TERESA, C3, C4 #### [facility] , Mean Corpuscular HGB Conc 33.9 g/dL Normal 32.0-35.0 [facility] Comment on above: Performed By: #### C RP, CK, CREAT, CBC, ADDONUAPLUS, ESR #### [address] #### TERESA, C3, C4 #### [facility] , Monocytes (Bld) [#/Vol] 0.4 10*3/uL Normal 0.0-0.8 [facility] Comment on above: Performed By: #### C RP, CK, CREAT, CBC, ADDONUAPLUS, ESR #### [place] [address] [place] #### TERESA, C3, C4 #### [facility] , Monocytes/100 WBC (Bld) 6.8 % Normal . [facility] Comment on above: Performed By: #### C RP, CK, CREAT, CBC, ADDONUAPLUS, ESR #### [address] #### TERESA, C3, C4 #### [facility] , Neutrophils (Bld) [#/Vol] 3.1 10*3/uL Normal 1.8-7.7 [facility] Comment on above: Performed By: #### C RP, CK, CREAT, CBC, ADDONUAPLUS, ESR #### [place] [address] [place] #### TERESA, C3, C4 #### [facility] , Neutrophils/100 WBC (Bld) 52.4 % Normal . [facility] Comment on above: Performed By: #### C RP, CK, CREAT, CBC, ADDONUAPLUS, ESR #### [address] #### TERESA, C3, C4 #### [facility] , Nucleated RBC/100 WBC (Bld) [Ratio] 0.0 % Normal 0-0.5 [facility] Comment on above: Performed By: #### C RP, CK, CREAT, CBC, ADDONUAPLUS, ESR #### [place] [address] [place] #### TERESA, C3, C4 #### [facility] , Platelet mean volume (Bld) [Entitic vol] 8.4 fL Normal 6.3-10.7 [facility] Comment on above: Performed By: #### C RP, CK, CREAT, CBC, ADDONUAPLUS, ESR #### [place] [address] [place] #### TERESA, C3, C4 #### [facility] , Platelets (Bld) [#/Vol] 259 10*3/uL Normal 150-450 [facility] Comment on above: Performed By: #### C RP, CK, CREAT, CBC, ADDONUAPLUS, ESR #### [place] [address] [place] #### TERESA, C3, C4 #### [facility] , RBC (Bld) [#/Vol] 4.36 10*6/uL Normal 3.60-5.00 [facility] Comment on above: Performed By: #### C RP, CK, CREAT, CBC, ADDONUAPLUS, ESR #### [address] #### TERESA, C3, C4 #### [facility] , WBC (Bld) [#/Vol] 5.9 10*3/uL Normal 4.5-11.0 [facility] Comment on above: Performed By: #### C RP, CK, CREAT, CBC, ADDONUAPLUS, ESR #### [address] #### TERESA, C3, C4 #### [facility] , Creatine Kinaseon 12-19-2020 CK [Catalytic activity/Vol] 79 U/L Normal 22-269 [facility] Comment on above: Result Comment: PERF ORMED BY: [place] [address] PATHOLOGIST METALWORKING INSTRUCTOR MARYLU LINARES M.D. Performed By: #### C RP, CK, CREAT, CBC, ADDONUAPLUS, ESR #### [address] #### TERESA, C3, C4 #### [facility] , Creatinineon 12-19-2020 Creatinine [Mass/Vol] 0.82 mg/dL Normal 0.44-1.03 [facility] Comment on above: Performed By: #### C RP, CK, CREAT, CBC, ADDONUAPLUS, ESR #### [address] #### TERESA, C3, C4 #### [facility] , Estimated GFR ( Bebo > 60 Normal [facility] Comment on above: Result Comment: GFR estimated reference range: According to KDOQI guidelines, <60 ml/min/1.73m2 is sufficient to diagnose a patient with chronic kidney disease. Performed By: #### C RP, CK, CREAT, CBC, ADDONUAPLUS, ESR #### [address] #### TERESA, C3, C4 #### [facility] , Estimated GFR (Non- Am > 60 Normal [facility] Comment on above: Performed By: #### C RP, CK, CREAT, CBC, ADDONUAPLUS, ESR #### [address] #### TERESA, C3, C4 #### [facility] , Dipstick and Microscopicon 0 12-19-2020 Appearance (U) Clear Normal Clear [facility] Comment on above: Order Comment: Name Collection Type:: Clean-Voided Midstream Performed By: #### C RP, CK, CREAT, CBC, ADDONUAPLUS, ESR #### [address] #### TERESA, C3, C4 #### [facility] , Bacteria,Urine None Seen Normal None Seen [facility] Comment on above: Order Comment: Name Collection Type:: Clean-Voided Midstream Performed By: #### C RP, CK, CREAT, CBC, ADDONUAPLUS, ESR #### [address] #### TERESA, C3, C4 #### [facility] , Bilirubin,Urine Negative Normal Negative [facility] Comment on above: Order Comment: Name Collection Type:: Clean-Voided Midstream Performed By: #### C RP, CK, CREAT, CBC, ADDONUAPLUS, ESR #### [address] #### TERESA, C3, C4 #### [facility] , Color (U) Yellow Normal Yellow [facility] Comment on above: Order Comment: Name Collection Type:: Clean-Voided Midstream Performed By: #### C RP, CK, CREAT, CBC, ADDONUAPLUS, ESR #### [facility] [address] [place] [address] #### TERESA, C3, C4 #### [facility] , Glucose Ql (U) Normal Normal Normal [facility] Comment on above: Order Comment: Name Collection Type:: Clean-Voided Midstream Performed By: #### C RP, CK, CREAT, CBC, ADDONUAPLUS, ESR #### [address] #### TERESA, C3, C4 #### [facility] , Hyaline Casts,Urine 0-8 Normal 0-8 [facility] Comment on above: Order Comment: Name Collection Type:: Clean-Voided Midstream Result Comment: PERF ORMED BY: [place] [address] PATHOLOGIST [employer]ING [employer]STRUCTOR MARYLU LINARES M.D. Performed By: #### C RP, CK, CREAT, CBC, ADDONUAPLUS, ESR #### [address] #### TERESA, C3, C4 #### [facility] , Ketones Ql (U) Negative Normal Negative [facility] Comment on above: Order Comment: Name Collection Type:: Clean-Voided Midstream Performed By: #### C RP, CK, CREAT, CBC, ADDONUAPLUS, ESR #### [facility] [address] [place] [address] #### TERESA, C3, C4 #### [facility] , Leukocyte esterase Test strip Ql (U) 1+ High Negative [facility] Comment on above: Order Comment: Name Collection Type:: Clean-Voided Midstream Performed By: #### C RP, CK, CREAT, CBC, ADDONUAPLUS, ESR #### [address] #### TERESA, C3, C4 #### [facility] , Nitrite,Urine Negative Normal Negative [facility] Comment on above: Order Comment: Name Collection Type:: Clean-Voided Midstream Performed By: #### C RP, CK, CREAT, CBC, ADDONUAPLUS, ESR #### [address] #### TERESA, C3, C4 #### [facility] , Occult Blood,Urine Negative Normal Negative [facility] Comment on above: Order Comment: Name Collection Type:: Clean-Voided Midstream Performed By: #### C RP, CK, CREAT, CBC, ADDONUAPLUS, ESR #### [address] #### TERESA, C3, C4 #### [facility] , pH (U) 5.5 [pH] Normal 5.0-9.0 [facility] Comment on above: Order Comment: Name Collection Type:: Clean-Voided Midstream Performed By: #### C RP, CK, CREAT, CBC, ADDONUAPLUS, ESR #### [address] #### TERESA, C3, C4 #### [facility] , Protein,Urine Negative Normal Negative [facility] Comment on above: Order Comment: Name Collection Type:: Clean-Voided Midstream Performed By: #### C RP, CK, CREAT, CBC, ADDONUAPLUS, ESR #### [address] #### TERESA, C3, C4 #### [facility] , RBC,Urine 1-2 Normal 0-4 [facility] Comment on above: Order Comment: Name Collection Type:: Clean-Voided Midstream Performed By: #### C RP, CK, CREAT, CBC, ADDONUAPLUS, ESR #### [place] [address] #### TERESA, C3, C4 #### [facility] , Specificy [place],Urine 1.024 Normal 1.001-1.030 [facility] Comment on above: Order Comment: Name Collection Type:: Clean-Voided Midstream Performed By: #### C RP, CK, CREAT, CBC, ADDONUAPLUS, ESR #### [address] #### TERESA, C3, C4 #### [facility] , Squamous Epithelial Cell,Urine 0-1 Normal 0-2 [facility] Comment on above: Order Comment: Name Collection Type:: Clean-Voided Midstream Performed By: #### C RP, CK, CREAT, CBC, ADDONUAPLUS, ESR #### [address] #### TERESA, C3, C4 #### [facility] , Urobilinogen,Urine Normal Normal Normal [facility] Comment on above: Order Comment: Name Collection Type:: Clean-Voided Midstream Performed By: #### C RP, CK, CREAT, CBC, ADDONUAPLUS, ESR #### [address] #### TERESA, C3, C4 #### [facility] , WBC,Urine 3-4 Normal 0-4 [facility] Comment on above: Order Comment: Name Collection Type:: Clean-Voided Midstream Performed By: #### C RP, CK, CREAT, CBC, ADDONUAPLUS, ESR #### [place] [address] [place] #### TERESA, C3, C4 #### [facility] , Erythrocyte Sedimentation Ra price 12-19-2020 ESR (Bld) [Velocity] 8 mm/h Normal 0-29 [facility] Comment on above: Result Comment: PERF ORMED BY: [place] [address] PATHOLOGIST [employer]ING INSTRUCTOR MARYLU LINARES M.D. Performed By: #### C RP, CK, CREAT, CBC, ADDONUAPLUS, ESR #### [facility] [address] #### TERESA, C3, C4 #### [facility] , Vital Signs Date Time Vital Sign Value Performing Clinician Nirmal elizalde 07-01-2023 16:04-0400 Body temperature 97.2 [degF] CHAD Villegas MD Work Phone: [facility] 07-01-2023 16:04-0400 Body weight 78.02 kg CHAD Villegas MD Work Phone: [facility] 07-01-2023 16:04-0400 Diastolic blood pressure 72 mm[Hg] CHAD Villegas MD Work Phone: [facility] 07-01-2023 16:04-0400 Heart rate 64 /min CHAD iVllegas MD Work Phone: [facility] 07-01-2023 16:04-0400 Respiratory rate 16 /min CHAD Villegas MD Work Phone: [facility] 07-01-2023 16:04-0400 SaO2% (BldA) [Mass fraction] 99 % CHAD Villegas MD Work Phone: [facility] 07-01-2023 16:04-0400 Systolic blood pressure 104 mm[Hg] CHAD Villegas MD Work Phone: [facility] 07-01-2022 15:52-0400 Body temperature 96.91 [degF] CHAD Villegas MD Work Phone: [facility] 07-01-2022 15:52-0400 Body weight 81.65 kg CHAD Villegas MD Work Phone: [facility] 07-01-2022 15:52-0400 Diastolic blood pressure 71 mm[Hg] CHAD Villegas MD Work Phone: [facility] 07-01-2022 15:52-0400 Heart rate 60 /min CHAD Villegas MD Work Phone: [facility] 07-01-2022 15:52-0400 Respiratory rate 16 /min CHAD Villegas MD Work Phone: [facility] 07-01-2022 15:52-0400 SaO2% (BldA) [Mass fraction] 96 % CHAD Villegas MD Work Phone: [facility] 07-01-2022 15:52-0400 Systolic blood pressure 124 mm[Hg] CHAD Villegas MD Work Phone: [facility] Encounters Encounter Date Encounter Type Care Provider Facility Start: 10-03-2023 End: 10-04-2023 ambulatory S[place]F [place] [place]: 07-01-2023 End: 07-02-2023 ambulatory Patience VILLEGAS Facility:[facility] Start: 07-01-2023 End: 07-01-2023 Patient encounter procedure Patience Villegas MD Work Phone: [facility] Comment on above: History of thyroid c ancer (Primary Dx) Start: 06-24-2023 End: 06-24-2023 ambulatory Patience VILLEGAS Facility:[facility] Start: 06-18-2023 Telephone encounter Patience Villegas MD Work Phone: Radiation Oncology Comment on above: Orders Start: 05-20-2023 End: 05-21-2023 ambulatory Naomi J Khadijah [place] Start: 05-20-2023 End: 05-20-2023 Patient encounter procedure Naomi J Khadijah [facility] Start: 04-23-2023 End: 04-24-2023 ambulatory Naomi J Khadijah [place] Start: 04-23-2023 End: 04-23-2023 Lab Drop off Naomi J Khadijah [facility] Start: 09-13-2022 End: 09-13-2022 Patient encounter procedure Naomi J Khadijah [facility] Start: 08-02-2022 End: 08-03-[address] ULISES SZYMANSKI Facility:[facility] Start: 08-01-2022 End: 08-02-[address] ULISES SZYMANSKI Facility:[facility] Start: 07-01-2022 End: 07-02-2022 Patient encounter procedure Patience Villegas MD Work Phone: Radiation Oncology Comment on above: History of thyroid c ancer (Primary Dx) Start: 06-25-2022 Telephone encounter Patience Villegas MD Work Phone: Radiation Oncology Comment on above: Future Appointment Start: 06-21-2022 Telephone encounter Patience Villegas MD Work Phone: Radiation Oncology Comment on above: Lab Orders Start: 05-30-2022 End: 05-31-[address] ULISES SZYMANSKI Facility:[facility] Start: 04-16-2022 End: 04-16-2022 Patient encounter procedure Naomi J Khadijah [facility] Start: 02-19-2022 End: 02-19-2022 Patient encounter procedure Naomijimmie Lucio [facility] Start: 09-21-2021 End: 09-22-[address] ULISES SZYMANSKI Facility:[facility] Start: 08-13-[address] ULISES SZYMANSKI Facility :[facility] Procedures Date Procedure Procedure Detail Performing Clinician Start: 07-01-2022 Adult depression scr eening assessment CHAD Villegas MD Work Phone: Start: 06-20-2021 Adult depression scr eening assessment CHAD Villegas MD Work Phone: Start: 03-12-2019 Salpingo-oophorectomy T muna Lucio Comment on above: bilateral Laparoscopy with fulguration of lesion Naomi Lucio Comment on above: endometriosis Thyroidectomy Naomi Lucio Plan of Treatment Date Care Activity Detail Author Start: 06-29-2024 End: 08-29-2024 THYROGLOBULIN BY MASS SPECTROMETRY THYROGLOBULIN BY MASS SPECTROMETRY Lab Routine History of thyroid cancer Expected: 06/29/2024, Expires: 08/29/2024 [facility] Work Phone: Comment on above: Expected: 06/29/2024 , Expires: 08/29/2024 Start: 06-29-2024 End: 08-29-2024 Thyrotropin [Units/volume] in Serum or Plasma TSH BLD Lab Routine History of thyroid cancer Expected: 06/29/2024, Expires: 08/29/2024 [facility] Work Phone: Comment on above: Expected: 06/29/2024 , Expires: 08/29/2024 Start: 06-29-2024 End: 08-29-2024 Thyroxine (T4) [Mass/volume] in Serum or Plasma T4/THYROXINE BLOOD Lab Routine History of thyroid cancer Expected: 06/29/2024, Expires: 08/29/2024 [facility] Work Phone: Comment on above: Expected: 06/29/2024 , Expires: 08/29/2024 Start: 07-01-2023 Adult depression screening assessment DEPRESSION SCREENING [facility] Start: 06-24-2023 End: 08-24-2023 Thyroglobulin and Thyrogobulin Ab panel - Serum or Plasma THYROGLOBULIN, SERUM WITH REFLEX TO IA OR LC-MS/MS Lab Routine History of thyroid cancer Expected: 06/24/2023, Expires: 08/24/2023 [facility] Work Phone: Comment on above: Expected: 06/24/2023 , Expires: 08/24/2023 Start: 06-24-2023 End: 08-24-2023 Thyrotropin [Units/volume] in Serum or Plasma TSH BLD Lab Routine History of thyroid cancer Expected: 06/24/2023, Expires: 08/24/2023 [facility] Work Phone: Comment on above: Expected: 06/24/2023 , Expires: 08/24/2023 Start: 06-24-2023 End: 08-24-2023 Thyroxine (T4) [Mass/volume] in Serum or Plasma T4/THYROXINE BLOOD Lab Routine History of thyroid cancer Expected: 06/24/2023, Expires: 08/24/2023 [facility] Work Phone: Comment on above: Expected: 06/24/2023 , Expires: 08/24/2023 Start: 06-13-2023 Influenza vaccination [facility] Start: 10-13-2022 DEPRESSION ASSESSMENT DEPRESSION ASS ESSMENT [facility] Start: 07-01-2022 End: 08-31-2022 Thyroglobulin Ab [Units/volume] in Serum or Plasma THYROGLOBULIN AB Lab Routine History of thyroid cancer Expected: 07/01/2022, Expires: 08/31/2022 [facility] Work Phone: Comment on above: Expected: 07/01/2022 , Expires: 08/31/2022 Start: 07-01-2022 End: 08-31-2022 Thyroglobulin and Thyrogobulin Ab panel - Serum or Plasma THYROGLOBULIN BLD Lab Routine History of thyroid cancer Expected: 07/01/2022, Expires: 08/31/2022 [facility] Work Phone: Comment on above: Expected: 07/01/2022 , Expires: 08/31/2022 Start: 07-01-2022 End: 08-31-2022 Thyrotropin [Units/volume] in Serum or Plasma TSH BLD Lab Routine History of thyroid cancer Expected: 07/01/2022, Expires: 08/31/2022 [facility] Work Phone: Comment on above: Expected: 07/01/2022 , Expires: 08/31/2022 Start: 07-01-2022 End: 08-31-2022 Thyroxine (T4) [Mass/volume] in Serum or Plasma T4/THYROXINE BLOOD Lab Routine History of thyroid cancer Expected: 07/01/2022, Expires: 08/31/2022 [facility] Work Phone: Comment on above: Expected: 07/01/2022 , Expires: 08/31/2022 Start: 06-21-2022 End: 08-21-2022 Thyroglobulin and Thyrogobulin Ab panel - Serum or Plasma [facility] Work Phone: Comment on above: Expected: 06/21/2022 , Expires: 08/21/2022 Start: 06-21-2022 End: 08-21-2022 Thyrotropin [Units/volume] in Serum or Plasma [facility] Work Phone: Comment on above: Expected: 06/21/2022 , Expires: 08/21/2022 Start: 06-21-2022 End: 08-21-2022 Thyroxine (T4) [Mass/volume] in Serum or Plasma [facility] Work Phone: Comment on above: Expected: 06/21/2022 , Expires: 08/21/2022 Start: 06-20-2022 Adult depression screening assessment DEPRESSION SCREENING [facility] Start: 06-13-2022 Influenza vaccination INFLUENZA (#1) [facility] Start: 03-08-2022 COVID-19 VACCINE (4 - Booster for Pfizer series) COVID-19 VACCINE (4 - Booster for Pfizer series) [facility] Start: 01-03-2022 COVID-19 VACCINE (4 - Pfizer series) COVID-19 VACCINE (4 - Pfizer series) [facility] Start: 2010 SHINGRIX VACCINE (1 of 2) SHINGRIX VACCINE (1 of 2) [facility] Start: 2005 COLOGUARD (FIT-DNA) COLOGUARD (FIT-D NA) [facility] Start: 2005 Colonoscopy COLONOSCOPY [facility] Start: 2005 COLORECTAL CANCER SCREENING COLORECTAL CANCER SCREENING [facility] Start: [address] COLONOGRAPHY [facility] Start: 2005 DIABETES SCREEN DIABETES SCREEN [facility] Start: 2005 Diabetes Screening Diabetes Screenin g [facility] Start: 2005 FECAL OCCULT BLOOD FECAL OCCULT BLOO D [facility] Start: 2005 Lipid 1996 panel - S jass or Plasma Lipid Screening [facility] Start: 2005 LIPID SCREEN LIPID SCREEN [facility] Start: 2005 SIGMOIDOSCOPY SIGMOIDOSCOPY [facility] Start: 2000 Mammography [facility] Start: 1990 HPV TESTING HPV TESTING [facility] Start: 1981 PAP TESTING PAP TESTING [facility] Start: 1979 Urine microalbumin profile [facility] Start: 1978 HEPATITIS C SCREENING HEPATITIS C SC REENING [facility] Start: 1978 HIV SCREENING HIV SCREENING [facility] Immunizations Immunization Date Immunization Notes Care Provider Fa johnson 07-14-2022 influenza virus vacc ine, unspecified formulation NA Bakari [place] Work Phone: [facility] Payers Date Payer Category Payer Unknown [id number] 1960 Unknown [id number] 1960 Unknown [id number] 1960 Unknown [id number] [id number] 1960 Unknown [id number] [id number] 1960 Unknown [id number] [id number] 1960 Unknown [id number] [id number] 1960 Unknown [id number] [id number] 1959 Self-pay [id number] 1959 Unknown [id number] Unknown [id number] Social History Date Type Detail Facility Tobacco smoking status Never smoker [facility] Start: 07-01-2022 End: 11-08-2022 Sex Assigned At Female [facility] Tobacco smoking status No Smokin g Status Entered [facility] Start: 05-19-2018 End: 07-01-2022 Tobacco smoking status NHIS Never smoked tobacco [facility] Start: 05-19-2018 End: 07-01-2022 Tobacco use and exposure Smokeless tobacco non-user [facility] Start: 05-18-2019 End: 07-01-2023 Alcohol intake Not Asked [facility] Start: 1960 Sex Assigned At Not on file [facility] Start: 06-11-2022 End: 07-01-2022 Exposure to SARS-CoV-2 (event) Not sure [facility] Tobacco smoking status No Smokin g Status Entered [facility] Start: 07-01-2022 End: 11-08-2022 History of Social function [facility] Adult Depression Screening Assessment 0 [facility] Clinical Notes 06-21-2022 to 07-01-2023 Patience Villegas MD - 07/01/2023 4:00 PM EDTTelephone Encounter - Kati Nolen LPN - 06/18/2023 9:42 AM EDTG Marbin Villegas MD - 07/01/2022 3:52 PM EDTRadiology Note Date & Type Note Facility 07-01-2023 Note HNO ID: [id number] Author: Patience Villegas MD Service: ? Author Type: Physician Type: Progress Notes Filed: 07/01/2023 4:33 PM Note Text: Radiation Oncology - Follow Up Note PATIENT NAME: Martita Moffett PATIENT DIAGNOSIS: Thyroid cancer INTERVAL HISTORY: Doing well. Denies new problems. 06/20/21:Earlier this year patient developed severe recurrent infection with pneumonia hypercoagulability, was inpatient for some time. She has since recovered and is back to work without significant residual issues. LABORATORY: Latest Reference Range AND Units 06/13/21 08:11 06/21/22 13:18 06/24/23 15:43 T4 5.5 - 10.2 ug/dL 8.8 9.8 8.2 TSH 0.270 - 4.200 mIU/L 1.280 0.855 0.345 Thyroglobulin Ab <14.4 IU/mL <1.0 <1.0 Thyroglobulin 1.6 - 59.9 ng/mL <0.2 (L) <0.2 (L) Thyroglobulin Ab, Serum <4.0 IU/mL <0.9 Thyroglobulin, Serum 1.6 - 50.0 ng/mL <0.1 (L) (L): Data is abnormally low Recent labs, 05/14/19: T4 11.1, TSH 0..146, thyroglobulin < 0.1, anti-thyroglobulin antibody <2 05/22/20: T4 11.0, TSH 0.1.303, thyroglobulin < 0.1, anti-thyroglobulin antibody <2 06/13/21: T4 8.8, TSH 1.280, thyroglobulin < 0.2, anti-thyroglobulin antibody <1.0 ALLERGIES: ALLERGIES No Known Allergies MEDICATIONS: vitamin D3-vitamin K2 (DOSOKAP) 137.5-200 mcg tab Take by mouth. levothyroxine (SYNTHROID) 100 mcg tablet Take 1 tablet by mouth once daily. pantoprazole DR (PROTONIX) 40 mg tablet Take 40 mg by mouth once daily. alendronate (FOSAMAX) 70 mg tablet Take 70 mg by mouth one time a week. In AM with cup of water on empty stomach. Nothing else by mouth and stay upright for 30 min. simvastatin (ZOCOR) 20 mg tablet Take 20 mg by mouth daily at bedtime. Zinc 50 mg tab Take by mouth. diphenhydrAMINE-Acetaminophen (TYLENOL PM EXTRA STRENGTH) 25-500 mg tab Take by mouth. BABY ASPIRIN ORAL Take by mouth. Cetirizine 10 mg cap Take by mouth. REVIEW OF SYSTEMS: PAIN ASSESSMENT: Negative for pain, history of chronic pain, or current treatment for a chronic pain condition. GENERAL: No weight loss, malaise or fevers. NECK: Negative for goiter, pain or significant neck swelling RESPIRATORY: Negative for cough, hemoptysis, wheezing, COPD, dyspnea or shortness of breath GI: No nausea, vomiting, or diarrhea NEURO: No history of headaches, syncope, paralysis, seizures or tremors The remainder of the review of systems is negative. PHYSICAL EXAM: VS: BP 104/72 Pulse 64 Temp 36.2 ?C (97.2 ?F) Resp 16 Wt 78 kg (172 lb) SpO2 99% KPS: 100 General Appearance: Well appearing, alert, in no acute distress, well-hydrated, well nourished.. Skin: Skin color, texture, turgor normal, no suspicious rashes or lesions. Neck: Supple, no adenopathy or masses notable Lymph Nodes: No cervical lymphadenopathy, No supraclavicular lymphadenopathy ASSESSMENT AND PLAN: 1. Papillary thyroid carcinoma: Doing well with undetectable thyroglobulin. 2. Synthroid suppressive therapy: Labs show appropriate TSH suppression and T4 replacement. Recommend continued current dose. Plan see patient back in one year with repeat thyroglobulin and thyroid function tests. Signed by: Patience Villegas MD Portions of the above note extracted and edited from previous visit as well as active information included in the EMR. [facility] 07-01-2023 History of Presen t illness Narrative Images from the original note were not included. Radiation Oncology - Follow Up Note PATIENT NAME: Martita Moffett PATIENT DIAGNOSIS: Thyroid cancer INTERVAL HISTORY: Doing well. Denies new problems. 06/20/21:Earlier this year patient developed severe recurrent infection with pneumonia hypercoagulability, was inpatient for some time. She has since recovered and is back to work without significant residual issues. LABORATORY: Latest Reference Range & Units 06/13/21 08:11 06/21/22 13:18 06/24/23 15:43 T4 5.5 - 10.2 ug/dL 8.8 9.8 8.2 TSH 0.270 - 4.200 mIU/L 1.280 0.855 0.345 Thyroglobulin Ab <14.4 IU/mL <1.0 <1.0 Thyroglobulin 1.6 - 59.9 ng/mL <0.2 (L) <0.2 (L) Thyroglobulin Ab, Serum <4.0 IU/mL <0.9 Thyroglobulin, Serum 1.6 - 50.0 ng/mL <0.1 (L) (L): Data is abnormally low Recent labs, 05/14/19: T4 11.1, TSH 0..146, thyroglobulin < 0.1, anti-thyroglobulin antibody <2 05/22/20: T4 11.0, TSH 0.1.303, thyroglobulin < 0.1, anti-thyroglobulin antibody <2 06/13/21: T4 8.8, TSH 1.280, thyroglobulin < 0.2, anti-thyroglobulin antibody <1.0 ALLERGIES: ALLERGIES No Known Allergies MEDICATIONS: vitamin D3-vitamin K2 (DOSOKAP) 137.5-200 mcg tab Take by mouth. levothyroxine (SYNTHROID) 100 mcg tablet Take 1 tablet by mouth once daily. pantoprazole DR (PROTONIX) 40 mg tablet Take 40 mg by mouth once daily. alendronate (FOSAMAX) 70 mg tablet Take 70 mg by mouth one time a week. In AM with cup of water on empty stomach. Nothing else by mouth and stay upright for 30 min. simvastatin (ZOCOR) 20 mg tablet Take 20 mg by mouth daily at bedtime. Zinc 50 mg tab Take by mouth. diphenhydrAMINE-Acetaminophen (TYLENOL PM EXTRA STRENGTH) 25-500 mg tab Take by mouth. BABY ASPIRIN ORAL Take by mouth. Cetirizine 10 mg cap Take by mouth. REVIEW OF SYSTEMS: PAIN ASSESSMENT: Negative for pain, history of chronic pain, or current treatment for a chronic pain condition. GENERAL: No weight loss, malaise or fevers. NECK: Negative for goiter, pain or significant neck swelling RESPIRATORY: Negative for cough, hemoptysis, wheezing, COPD, dyspnea or shortness of breath GI: No nausea, vomiting, or diarrhea NEURO: No history of headaches, syncope, paralysis, seizures or tremors The remainder of the review of systems is negative. PHYSICAL EXAM: VS: BP 104/72 Pulse 64 Temp 36.2 C (97.2 F) Resp 16 Wt 78 kg (172 lb) SpO2 99% KPS: 100 General Appearance: Well appearing, alert, in no acute distress, well-hydrated, well nourished.. Skin: Skin color, texture, turgor normal, no suspicious rashes or lesions. Neck: Supple, no adenopathy or masses notable Lymph Nodes: No cervical lymphadenopathy, No supraclavicular lymphadenopathy ASSESSMENT AND PLAN: 1. Papillary thyroid carcinoma: Doing well with undetectable thyroglobulin. 2. Synthroid suppressive therapy: Labs show appropriate TSH suppression and T4 replacement. Recommend continued current dose. Plan see patient back in one year with repeat thyroglobulin and thyroid function tests. Signed by: Patience Villegas MD Portions of the above note extracted and edited from previous visit as well as active information included in the EMR. documented in this encounter [facility] 06-18-2023 Miscellaneous Notes Please sign pended lab orders for upcoming yearly follow up. Kati Nolen LPN documented in this encounter [facility] 04-23-2023 Evaluation + Plan note Diagnostic Tests PendingPAP [id number]/[id number] [facility] 07-01-2022 History of Presen t illness Narrative Images from the original note were not included. Radiation Oncology - Follow Up Note PATIENT NAME: Martita Moffett PATIENT DIAGNOSIS: Thyroid cancer INTERVAL HISTORY: Doing well. Denies new problems. 06/20/21:Earlier this year patient developed severe recurrent infection with pneumonia hypercoagulability, was inpatient for some time. She has since recovered and is back to work without significant residual issues. LABORATORY: Latest Reference Range & Units 06/13/21 08:11 06/21/22 13:18 T4 5.5 - 10.2 ug/dL 8.8 9.8 TSH 0.270 - 4.200 mIU/L 1.280 0.855 Thyroglobulin Ab <14.4 IU/mL <1.0 <1.0 Thyroglobulin 1.6 - 59.9 ng/mL <0.2 (L) <0.2 (L) (L): Data is abnormally low Recent labs, 05/14/19: T4 11.1, TSH 0..146, thyroglobulin < 0.1, anti-thyroglobulin antibody <2 05/22/20: T4 11.0, TSH 0.1.303, thyroglobulin < 0.1, anti-thyroglobulin antibody <2 06/13/21: T4 8.8, TSH 1.280, thyroglobulin < 0.2, anti-thyroglobulin antibody <1.0 ALLERGIES: ALLERGIES No Known Allergies MEDICATIONS: levothyroxine (SYNTHROID) 100 mcg tablet Take 1 tablet by mouth once daily. pantoprazole DR (PROTONIX) 40 mg tablet Take 40 mg by mouth once daily. alendronate (FOSAMAX) 70 mg tablet Take 70 mg by mouth one time a week. In AM with cup of water on empty stomach. Nothing else by mouth and stay upright for 30 min. simvastatin (ZOCOR) 20 mg tablet Take 20 mg by mouth daily at bedtime. Zinc 50 mg tab Take by mouth. diphenhydrAMINE-Acetaminophen (TYLENOL PM EXTRA STRENGTH) 25-500 mg tab Take by mouth. BABY ASPIRIN ORAL Take by mouth. DOSOQUIN 5,500-200 unit-mcg tab Cetirizine 10 mg cap Take by mouth. REVIEW OF SYSTEMS: PAIN ASSESSMENT: Negative for pain, history of chronic pain, or current treatment for a chronic pain condition. GENERAL: No weight loss, malaise or fevers. NECK: Negative for goiter, pain or significant neck swelling RESPIRATORY: Negative for cough, hemoptysis, wheezing, COPD, dyspnea or shortness of breath GI: No nausea, vomiting, or diarrhea NEURO: No history of headaches, syncope, paralysis, seizures or tremors The remainder of the review of systems is negative. PHYSICAL EXAM: VS: BP 124/71 Pulse 60 Temp 36.1 C (96.9 F) Resp 16 Wt 81.6 kg (180 lb) SpO2 96% KPS: 100 General Appearance: Well appearing, alert, in no acute distress, well-hydrated, well nourished.. Skin: Skin color, texture, turgor normal, no suspicious rashes or lesions. Neck: Supple, no adenopathy or masses notable Lymph Nodes: No cervical lymphadenopathy, No supraclavicular lymphadenopathy ASSESSMENT AND PLAN: 1. Papillary thyroid carcinoma: Doing well with undetectable thyroglobulin. 2. Synthroid suppressive therapy: Labs show appropriate TSH suppression and T4 replacement. Recommend continued current dose. Plan see patient back in one year with repeat thyroglobulin and thyroid function tests. Signed by: Patience Villegas MD Portions of the above note extracted and edited from previous visit as well as active information included in the EMR. documented in this encounter [facility] 06-25-2022 Miscellaneous Notes R/s appointment to that date and time. Pt was contacted due to TG not resulted yet. She would like to reschedule to next week to have all results at visit. PSS- pt needs 4pm appt. Please move on epic from today to Sunday 07/01 at 4pm. Thank you Janie Sellers RN documented in this encounter [facility] 06-21-2022 Miscellaneous Notes Please sign orders for today. Janie Sellers RN documented in this encounter [facility] Evaluation + Plan note No data available for this section [facility] Evaluation + Plan note Future Appointments Appointment Date:08/03/2022 07:15:00 AM Scheduled Provider: Location:FT.MAMMOGRAM Appointment Type:MA Screen (FT) Future Scheduled TestsMA Mamm Screen w/CAD if perf and 3D [place] 08/03/22 [facility] Evaluation note Diagnosis History of thyroid cancer- Primary Personal history of malignant neoplasm of thyroid [facility] History of thyroid cancer- Primary Personal history of malignant neoplasm of thyroid documented in this encounter [facility] note* Diagnosis History of thyroid cancer- Primary Personal history of malignant neoplasm of thyroid [facility] No data available for this section [facility] No data available for this section [facility] Summary Purpose Family History No Family History Records FoundNo Family History Records FoundNo Family History Records FoundNo Family History Records Found Advance Directives No Advanced Directives Records FoundNo Advanced Directives Records FoundNo Advanced Directives Records FoundNo Advanced Directives Records Found Additional Source Comments INFORMATION SOURCE (unrecogn ized section and content) DATE CREATED AUTHOR 10/01/2021 [facility] DATE CREATED AUTHOR AUTHOR'S ORGANIZ ATION 08/08/2022 [facility] DATE CREATED AUTHOR AUTHOR'S ORGANIZ ATION 07/03/[address] [facility] DATE CREATED AUTHOR AUTHOR'S ORGANIZ ATION 10/10/2023 [facility] (unrecognized sect ion and content) [facility] Relationship Specialty Start Date End Date Ulises Szymanski MD PCP - General Family Practice 01/29/12 [facility] Relationship Specialty Start Date End Date Ulises Szymanski MD PCP - General Family Practice 01/29/12 [facility] Relationship Specialty Start Date End Date Ulises Szymanski MD PCP - General Family Medicine 01/29/12 [facility] Relationship Specialty Start Date End Date Ulises Szymanski MD PCP - General Family Medicine 01/29/12 Source Comments (unrecognize d section and content) In the event this informatio n is protected by the Federal Confidentiality of Alcohol and Drug Abuse Patient Records regulations: The Federal rules restrict any use of the information to criminally investigate or prosecute any alcohol or drug abuse patient.[facility] the event this information is protected by the Federal Confidentiality of Alcohol and Drug Abuse Patient Records regulations: The Federal rules restrict any use of the information to criminally investigate or prosecute any alcohol or drug abuse patient.[facility] the event this information is protected by the Federal Confidentiality of Alcohol and Drug Abuse Patient Records regulations: The Federal rules restrict any use of the information to criminally investigate or prosecute any alcohol or drug abuse patient.[facility] the event this information is protected by the Federal Confidentiality of Alcohol and Drug Abuse Patient Records regulations: The Federal rules restrict any use of the information to criminally investigate or prosecute any alcohol or drug abuse patient.[facility] the event this information is protected by the Federal Confidentiality of Alcohol and Drug Abuse Patient Records regulations: The Federal rules restrict any use of the information to criminally investigate or prosecute any alcohol or drug abuse patient.[facility] Reason for Visit (unrecogniz ed section and content) Reason Comments Lab Orders Reason Comments Future Appointment Reason Comments Orders Reason Comments Thyroid Cancer FOR RECORDS PERTAINING TO PATIENTS WHO ARE OR HAVE BEEN ENROLLED IN A CHEMICAL DEPENDENCY/SUBSTANCEABUSE PROGRAM, SOME INFORMATION MAY BE OMITTED. This clinical summary was aggregated from multiple sources. Caution should be exercised in using it in the provision of clinical care. This summary normalizes information from multiple sources, and as a consequence, information in this document may materially change the coding, format and clinical context of patient data. In addition, data may be omitted in some cases. CLINICAL DECISIONS SHOULD BE BASED ON THE PRIMARY CLINICAL RECORDS. [employer] [facility] provides no warranty or guarantee of the accuracy or completeness of information in this document.
[2024-02-21 11:27] LABS: Basophils Percent Auto 0.6 % (0.2-2.0); Eosinophils Absolute Auto 0.1 10^3/uL (0.0-0.7); Eosinophils Percent Auto 1.1 % (0.9-7.0); Hematocrit 41.7 % (36.0-48.0); Immature Granulocytes Abs Auto 0.01 10^3/uL (0.00-0.03); Immature Granulocytes Pct Auto 0.2 % (0.0-0.5); Lymphocytes Absolute Auto 2.3 10^3/uL (1.2-3.8); Lymphocytes Percent Auto 41.3 % (20.5-60.0); Mean Corpuscular HGB Conc 33.6 g/dL (29.9-35.2); Mean Corpuscular Hemoglobin 31.5 pg (26.7-34.0); Mean Corpuscular Volume 93.9 fL (81.0-99.0); Mean Platelet Volume 9.6 fL (9.5-13.5); Monocytes Absolute Auto 0.4 10^3/uL (0.3-0.8); Monocytes Percent Auto 7.5 % (1.7-12.0); Neutrophils Absolute Auto 2.7 10^3/uL (1.4-6.5); Neutrophils Percent Auto 49.3 % (43.0-75.0); Platelet Count 233 10^3/uL (150-450); Red Blood Count 4.44 10^6/uL (4.20-5.40); Red Cell Distribution Width 12.5 % (11.0-15.0); White Blood Count 5.5 10^3/uL (4.0-11.0)
[2024-02-21 11:40] LABS: Estimated Average Glucose 105 mg/dL; Glycohemoglobin A1C 5.3 % (4.5-6.2)
[2024-02-21 12:39] LABS: Alanine Aminotransferase 21 U/L (14-59); Albumin Globulin Ratio 1.1; Albumin Level 3.9 g/dL (3.4-5.0); Alkaline Phosphatase 60 U/L (46-116); Anion Gap 13.6; Aspartate Amino Transferase 13 U/L (15-37); BUN Creatinine Ratio 20.7; Bilirubin Total 0.7 mg/dL (0.2-1.0); Calcium 9.5 mg/dL (8.5-10.1); Carbon Dioxide 26.5 mmol/L (21.0-32.0); Chloride 105 mmol/L (98-107); Chol HDL Ratio 2.9; Cholesterol 198 mg/dL (<=200); Estimated GFR (African America >60 (>=60); Estimated GFR (Non-African Ame >60 (>=60); Free T3 2.83 pg/mL (2.18-3.98); Globulin 3.5 g/dL; Glucose 86 mg/dL (74-106); HDL Cholesterol 69 mg/dL (40-60); Potassium 4.1 mmol/L (3.5-5.1); Sodium 141 mmol/L (136-145); Thyroid Stimulating Hormone 0.846 uIU/mL (0.358-3.740); Total Protein 7.4 g/dL (6.4-8.2); Triglycerides 117 mg/dL (<=150); VLDL CHOLESTEROL 23.4 mg/dL
== END 2024-02-21 10:59 | disposition home or self-care (01) ==
LOC: LAB 11:00
PROVIDERS: PCP Family Medicine; Visit Provider Family Medicine
DX: Z00.00 Encounter for general adult medical examination without abnormal findings (principal)
CPT/HCPCS: 36415; 80053; 80061; 82306; 83036; 83525; 83540; 84436; 84443; 84481; 85025

== ENCOUNTER 2024-02-23 07:00 | Outpatient (OUT) | payer OTHER, SELFPAY ==
--- OUTSIDE RECORDS SUMMARY | 2024-02-23 07:02 | XMS_ITS | CCD ---
Author Organization [facility] Care Team Providers Care Design Engineer [employer] Name Role Phone Ulises Szymanski Primary Care Physician [phone] Ulises Szymanski MD Primary Care Provider [phone] Ulises Szymanski MD Primary Care Provider [phone] NAZANIN, DR MONTGOMERY Consulting Unavailable HOY, DR [...] Unavailable Ulises Szymanski MD Primary Care Provider [phone] Patience VILLEGAS Attending Unavailable Patience VILLEGAS Referring Unavailable ULISES SZYMANSKI Primary Care Unavailable Patience VILLEGAS Referring Unavailable ULISES SZYMANSKI Primary Care Unavailable KhadijahHernadezesa Macario Admitting Unavailable KhadijahHarpreetNaomi J Attending Unavailable [...] VERY IMPORTANT TO YOUR HEALTH. THE CURRENT [employer]WORK GUIDELINES RECOMMENDS ANNUAL MAMMOGRAPHY BEGINNING AT AGE 40. THIS FACILITY UTILIZES A REMINDER SYSTEM TO ENSURE ALL PATIENTS RECEIVE REMINDER NOTIFICATIONS AT THE APPROPRIATE TIME BASED ON THE RECOMMENDATIONS OF THIS EXAM. Report Ordering Provider: REFERRAL, SELF FINAL REPORT Dictated: 10/08/2023 3:48 pm Clive Haskins MD Signed (Electronic Signature): 10/08/2023 3:48 pm Signed by: Clive Haskisn MD Transcribed by: JAKE Technologist: JOSIAS Assessment: BI-RADS Category 1-Negative Recommendation: Normal interval follow-up [facility] Consent for Treatmenton 09-13 Consent for Treatment [id number] #1.00TIFF [facility] CNOVon 07-01-2023 CNOV Office Visit (RADTSA) MARTITA MOFFETT ([id number]) 1960 F Date Time Provider Department 07/01/23 [...] in the EMR. Referring Provider: Patience VILLEGAS [[id number]] Allergies As of Date: 07/01/2023 (No Known Allergies) Date Reviewed: 07/01/2023 Reviewed by: Kati Nolen LPN - Fully Assessed Reason for Visit: Thyroid Cancer [879] Primary Visit Diagnosis:History of thyroid cancer [Z85.850] Order(s):TSH BLD [SQTSH] Order #: [id number] FUTURE T4/THYROXINE BLOOD [SQT4] Order #: [id number] FUTURE THYROGLOBULIN BY MASS SPECTROMETRY [SQTGMSMS] Order #: [id number] FUTURE Prescriptions as of 07/01/2023 - vitamin [...] cancer [Z85.850] (more content not included)... Normal [facility] T4 SerPl-mCncon 06-24-2023 T4 [Mass/Vol] 8.2 ug/dL Normal 5.5-10.2 [facility] Comment on above: Order Comment: Omar acosta Type: BLOOD SPECIMEN Ordering Facility: [facility] Address: [address] [place] [address] Performed By: #### 3 016-3, 3026-2 #### [facility] CLIA [id number] [address] [place] [address] [place] TSH SerPl-aCncon 06-24-2023 TSH Qn 0.345 m[IU]/L Normal 0.270-4.200 [facility] Comment on above: Order Comment: Omar [facility] Type: BLOOD SPECIMEN Ordering Facility: [facility] Address: [address] [place], [place] [address] Performed By: #### 3 016-3, 3026-2 #### [facility] CLIA [id number] [address] [place] [address] [place] Thyroglobulin and Thyrogobul in Ab panelon 06-24-2023 Thyroglobulin Ab Qn [IU]/mL Normal <4.0 [facility] Comment on above: Order Comment: Omar acosta Type: BLOOD SPECIMEN Ordering Facility: [facility] Address: [address] [place], [place] [address] Result Comment: The Thyroglobulin Antibody test was performed using the Haja Vasyl Unicel DXI paramagnetic particle chemiluminescent immunoassay method. Results obtained with different assay methods or kits cannot be used interchangeably. Performed By: #### 5 7780-9 #### [facility] CLIA [id number] [address] [place] [address] [place] THYROGLOBULIN, SERUM <0.1 Low 1.6-50.0 [facility] Comment on above: Order Comment: Speci karla Type: BLOOD SPECIMEN Ordering Facility: [facility] Address: [address] [place] [address] Result Comment: The Thyroglobulin test was performed using the Haja Vasyl Unicel DXI paramagnetic particle chemiluminescent immunoassay method. Results obtained with different assay methods or kits cannot be used interchangeably. Performed By: #### 5 7780-9 #### [facility] CLIA [id number] [address] [place] [address] [place] Santa 06-18-2023 LAZN Telephone (RADTSA) MARTITA MOFFETT ([id number]) 1960 F Date Time Provider Department 06/18/23 Patience VILLEGAS During your visit today, we recorded the following information about you: Kati Nolen LPN 06/18/2023 9:44 AM Signed Please sign pended lab orders for upcoming yearly follow up. Kati Nloen LPN Allergies As of Date: 06/18/2023 (No Known Allergies) Date Reviewed: 06/20/2021 Reviewed by: Janie Sellers, SWEETIE - Fully Assessed Reason for Visit: Orders [681] Primary Visit Diagnosis:History of thyroid cancer [Z85.850] Order(s):TSH BLD [SQTSH] Order #: [id number] FUTURE T4/THYROXINE BLOOD [SQT4] Order #: [id number] FUTURE THYROGLOBULIN, SERUM WITH REFLEX TO IA OR LC-MS/MS [SQTHYRORF] Order #: [id number] FUTURE Prescriptions as of 06/18/2023 - levothyroxine [...] Status:Closed by Patience VILLEGAS on 06/18/23 Normal [facility] MRI Breast w/o and w/ Contra Bilaton [...] VERY IMPORTANT TO YOUR HEALTH. THE CURRENT [employer]IVE CANCER [...] MultiHance Contrast amount in ml's: 15 Normal [facility] CHEMISTRYOrdered By: SYSTEM SYSTEM on 05-20-2023 25-hydroxyvitamin D3 [Mass/Vol] 40.2 ng/mL Normal 30.0 - 100.0 ng/mL [facility] Remisol Calcium [Mass/Vol] 9.4 mg/dL Normal 8.9 - 11. 1 mg/dL [facility] Remisol Creatinine [Mass/Vol] 0.9 mg/dL Normal 0.5 - 1.3 mg/dL [facility] Remisol GFR/1.73 sq M.predicted among non-blacks MDRD (S/P/Bld) [Vol rate/Area] 72 mL/min/1.73 m2 Normal >=59mL/min/1. 73 m2 [facility] Chem S Calciumon 05-20-2023 Calcium [Mass/Vol] 9.4 mg/dL Normal 8.9-11.1 [facility] Comment on above: Performed By: #### 5 [id number], [id number], [id number], [id number] #### [facility] [address] [place] [address] Consent for Treatmenton Consent for Treatment [id number] #1.00CD:127 Normal [facility] Creatinineon 05-20-2023 Creatinine [Mass/Vol] 0.9 mg/dL Normal 0.5-1.3 [facility] Comment on above: Performed By: #### 5 [id number], [id number], [id number], [id number] #### [facility] [address] [place] [address] Physician Orderon 05-20-2023 Physician Order [id number] 0#1.00CD:127 Normal [facility] RAD - MRI Screening Formon 0 05-20-2023 RAD - MRI Screening Form [id number] 1#1.00CD:127 Normal [facility] Vitamin D 25 Hydroxyon 05-20 25-hydroxyvitamin D3 [Mass/Vol] 40.2 ng/mL Normal 30.0-100.0 [facility] Comment on above: Result Comment: Vit jurado D deficiency has been defined as a level of serum 25-OH vitamin D less than 20 ng/mL (1,2) by the [employer] of Medicine and an Endocrine Society practice guideline. The Endocrine Society further defined vitamin D insufficiency as a level between 21 and 29 ng/mL (2). 1. IOM ([place] of Medicine). 2010. Dietary reference intakes for calcium and D. [place]: The National Academies Press. 2. Ekta MF, Roxanna NC, Genesis HIGHTOWER, et al. Evaluation, treatment, and prevention of vitamin D deficiency: an Endocrine Society clinical practice guideline. JCEM. 2011 Apr; 96 (7):1911-30. Performed By: #### 5 [id number], [id number], [id number], [id number] #### [facility] [address] [place] [address] eGFRon 05-20-2023 GFR/1.73 sq M.predicted among non-blacks MDRD (S/P/Bld) [Vol rate/Area] 72 mL/min/1.73 m2 Normal >=59 [facility] Comment on above: Order Comment: Order added by Discern Expert. Result Comment: Checker In sara kidney disease could be indicated at eGFR's of less than 60 mL/min/1.73m2. Kidney failure is indicated at less than 15 mL/min/1.73m2. Performed By: #### 5 [id number], [id number], [id number], [id number] #### [facility] [address] [place] [address] Physician Orderon 05-19-2023 Physician Order [id number] 7#1.00CD:127 Normal [facility] Physician Orderon 05-09-2023 Physician Order [id number] #1.00CD:127 Normal [facility] PAP [id number] 04-28-2023 Cytology report Cyto stain Doc (Cvx/Vag) Note Invalid Interpretation Code [facility] Comment on above: Result Comment: TEST S RESULT FLAG UNITS REF RANGE LAB Clinician Provided Cytology Information Source.............Endocervix No. of containers..01 ThinPrep Vial DIAGNOSIS: 01 NEGATIVE FOR INTRAEPITHELIAL LESION OR MALIGNANCY. CELLULAR CHANGES ASSOCIATED WITH ATROPHY ARE PRESENT. Specimen adequacy: 01 Satisfactory for evaluation. Endocervical component may not be distinguished in cases of atrophy. Performed by: Cristofer Padilla Medical Doctor Md/Medical Director (ASCP) . 01 Note: Note 01 The [...] <-Panic Low,>-Panic High,A-Abnormal,AA-Critical Abnormal Performed at: [address] [address] Elda Sullivan MD, Performed By: #### 3 [id number] #### [facility] [address] [place] [address] HPV 16+18+31+33+35+39+45+ 51+52+56+58+59+66+68 DNA Probe+sig amp Ql (Cvx) Negative Invalid Interpretation Code Negative [facility] Comment on above: Result Comment: This nucleic acid amplification test detects fourteen high-risk HPV types (16,18,31,33,35,39,45,51,52,56,58,59,66,68) without differentiation. Performed at: [facility] [id number] MD Laurie Schroeder Performed at: =[facility] [id number] MD Laurie Schroeder Performed By: #### 3 [id number] #### [facility] [address] [place] [address] PAP [id number] 04-23-2023 Gynecological Body Site ENDOCERVIX Normal [facility] Comment on above: Performed By: #### 3 [id number] #### [facility] [address] [place] [address] Physician Orderon 04-23-2023 Physician Order [id number] 1#1.00CD:[address] [facility] CT ABD/PELVIS WO CONon 08-02 CT ABD/PELVIS [...] by: GIAN LEIVA Date: 2022-08-02 13:33 Normal [facility] XR KUB 1 VIEWon 08-01-2022 XR KUB [...] by: GIAN LEIVA Date: 2022-08-01 12:01 Normal [facility] CBC AUTO DIFFon 05-30-2022 BASO # 0.1 103/ul Normal 0.0-0.1 [facility] Comment on above: Performed By: #### H FPFCBC #### [facility] [address] [place] [address] Dr. Franchesca Ramos Basophils/100 WBC (Bld) 1.0 % Normal 0.2-2.0 [facility] Comment on above: Performed By: #### H FPFCBC #### [facility] [address] [place] [address] Dr. Franchesca Ramos EO # 0.1 103/ul Normal 0.0-0.7 [facility] Comment on above: Performed By: #### H FPFCBC #### [facility] [address] [place] [address] Dr. Franchesca Ramos Eosinophils/100 WBC (Bld) 1.4 % Normal 0.9-7.0 [facility] Comment on above: Performed By: #### H FPFCBC #### [facility] [address] [place] [address] Dr. Franchesca Ramos Erythrocyte distribution width (RBC) [Ratio] 12.8 % Normal 11.0-15.0 [facility] Comment on above: Performed By: #### H FPFCBC #### [facility] [address] [place] [address] Dr. Franchesca Ramos Hematocrit (Bld) [Volume fraction] 40.5 % Normal 36.0-48.0 [facility] Comment on above: Performed By: #### H FPFCBC #### [facility] [address] [place] [address] Dr. Franchesca Ramos Hemoglobin (Bld) [Mass/Vol] 13.6 g/dL Normal 12.0-16.0 [facility] Comment on above: Performed By: #### H FPFCBC #### [facility] [address] [place] [address] Dr. Franchesca Ramos IG # 0.02 10e3/ul Normal 0.00-0.03 [facility] Comment on above: Performed By: #### H FPFCBC #### [facility] [address] [place] [address] Dr. Franchesca Ramos IG % 0.3 % Normal 0.0-0.5 [facility] Comment on above: Performed By: #### H FPFCBC #### [facility] [address] [place] [address] Dr. Franchesca Ramos LYMPH # 2.6 103/ul Normal 1.2-3.8 [facility] Comment on above: Performed By: #### H FPFCBC #### [facility] [address] [place] [address] Dr. Franchesca Ramos Lymphocytes/100 WBC (Bld) 44.3 % Normal 20.5-60.0 [facility] Comment on above: Performed By: #### H FPFCBC #### [facility] [address] [place] [address] Dr. Franchesca Ramos MCH (RBC) [Entitic mass] 31.7 pg Normal 26.7-34.0 [facility] Comment on above: Performed By: #### H FPFCBC #### [facility] [address] [place] [address] Dr. Franchesca Ramos MCHC (RBC) [Mass/Vol] 33.6 g/dL Normal 29.9-35.2 [facility] Comment on above: Performed By: #### H FPFCBC #### [facility] [address] [place] [address] Dr. Franchesca Ramos MCV (RBC) [Entitic vol] 94.4 fL Normal 81.0-99.0 [facility] Comment on above: Performed By: #### H FPFCBC #### [facility] [address] [place] [address] Dr. Franchesca Ramos MONO # 0.5 103/ul Normal 0.3-0.8 [facility] Comment on above: Performed By: #### H FPFCBC #### [facility] [address] [place] [address] Dr. Franchesca Ramos Monocytes/100 WBC (Bld) 8.5 % Normal 1.7-12.0 [facility] Comment on above: Performed By: #### H FPFCBC #### [facility] [address] [place] [address] Dr. Franchesca Ramos NEUT # 2.6 103/ul Normal 1.4-6.5 [facility] Comment on above: Performed By: #### H FPFCBC #### [facility] [address] [address] [address] Franchesca Ramos Neutrophils/100 WBC (Bld) 44.5 % Normal 43.0-75.0 [facility] Comment on above: Performed By: #### H FPFCBC #### [facility] [address] [address] [address] Franchesca Ramos Platelet mean volume (Bld) [Entitic vol] 10.2 fL Normal 9.5-13.5 [facility] Comment on above: Performed By: #### H FPFCBC #### [facility] [address] [place] [address] Dr. Franchesca Ramos PLT 241 103/ul Normal 150-450 [facility] Comment on above: Performed By: #### H FPFCBC #### [facility] [address] [place] [address] Dr. Franchesca Ramos RBC 4.29 106/ul Normal 4.20-5.40 [facility] Comment on above: Performed By: #### H FPFCBC #### [facility] [address] [address] [address] Franchesca Ramos WBC 5.9 103/ul Normal 4.0-11.0 [facility] Comment on above: Performed By: #### H FPFCBC #### [facility] [address] [place] [address] Dr. Franchesca Ramos [employer]ALTH[employer] PROFILEon 022 Albumin [Mass/Vol] 4.0 g/dL Normal 3.4-5.0 [facility] Comment on above: Performed By: #### H FPF #### [facility] [address] [place] [address] Dr. Franchesca Ramos Albumin/Globulin [Mass ratio] 1.3 {ratio} Normal [facility] Comment on above: Performed By: #### H FPF #### [facility] [address] [address] [address] Franchesca Ramos ALP [Catalytic activity/Vol] 54 U/L Normal 46-116 [facility] Comment on above: Performed By: #### H FPF #### [facility] [address] [address] [address] Franchesca Raoms ALT [Catalytic activity/Vol] 23 U/L Normal 14-59 [facility] Comment on above: Performed By: #### H FPF #### [facility] [address] [address] [address] Franchesca Ramos AST [Catalytic activity/Vol] 17 U/L Normal 15-37 [facility] Comment on above: Performed By: #### H FPF #### [facility] [address] [address] [address] Franchesca Ramos Bilirubin [Mass/Vol] 0.7 mg/dL Normal 0.2-1.0 [facility] Comment on above: Performed By: #### H FPF #### [facility] [address] [place] [address] Dr. Franchesca Ramos Calcium [Mass/Vol] 8.9 mg/dL Normal 8.5-10.1 [facility] Comment on above: Performed By: #### H FPF #### [facility] [address] [place] [address] Dr. Franchesca Ramos Chloride [Moles/Vol] 104 mmol/L Normal 98-107 [facility] Comment on above: Performed By: #### H FPF #### [facility] [address] [place] [address] Dr. Franchesca Ramos CHOL-HDL RATIO NORM SEE BELOW Normal [facility] Comment on above: Result Comment: 3.3 - 4.4 LOW RISK 4.4 - 7.1 AVERAGE RISK 7.1 - 11.0 MODERATE RISK >11.0 HIGH RISK Performed By: #### H FPF #### [facility] [address] [place] [address] Dr. Franchesca Ramos Cholesterol [Mass/Vol] 175 mg/dL Normal <=200 [facility] Comment on above: Performed By: #### H FPF #### [facility] [address] [place] [address] Dr. Franchesca Ramos Cholesterol in HDL [Mass/Vol] 59 mg/dL Normal 40-60 [facility] Comment on above: Performed By: #### H FPF #### [facility] [address] [address] [address] Franchesca Ramos Cholesterol in LDL [Mass/Vol] 92.2 mg/dL Normal [facility] Comment on above: Performed By: #### H FPF #### [facility] [address] [address] [address] Franchesca Ramos Cholesterol.total/Cho lesterol in HDL [Mass ratio] 3.0 {ratio} Normal [facility] Comment on above: Performed By: #### H FPF #### [facility] [address] [place] [address] Dr. Franchesca Ramos CO2 [Moles/Vol] 27.7 mmol/L Normal 21.0-32.0 [facility] Comment on above: Performed By: #### H FPF #### [facility] [address] [address] [address] Franchesca Ramos Creatinine [Mass/Vol] 0.91 mg/dL Normal 0.55-1.02 [facility] Comment on above: Performed By: #### H FPF #### [facility] [address] [place] [address] Dr. Franchesca Ramos Globulin (S) [Mass/Vol] 3.2 g/dL Normal [facility] Comment on above: Performed By: #### H FPF #### [facility] [address] [address] [address] Franchesca Ramos Glucose [Mass/Vol] 89 mg/dL Normal 74-106 [facility] Comment on above: Performed By: #### H FPF #### [facility] [address] [address] [address] Franchesca Ramos HDL NORMAL > or = 60 mg/dl - LOW CARDIOVASCULAR RISK <40 mg/dl - HIGH CARDIOVASCULAR RISK Normal [facility] Comment on above: Performed By: #### H FPF #### [facility] [address] [place] [address] Dr. Franchesca Ramos LDL CALC NORMAL SEE BELOW Normal [facility] Comment on above: Result Comment: <100 mg/dl OPTIMAL 100 - 129 mg/dl NEAR OR ABOVE OPTIMAL 130 - 159 mg/dl BORDERLINE HIGH 160 - 189 mg/dl HIGH >190 mg/dl VERY HIGH Performed By: #### H FPF #### [facility] [address] [address] [address] Franchesca Ramos Potassium [Moles/Vol] 3.8 mmol/L Normal 3.5-5.1 [facility] Comment on above: Performed By: #### H FPF #### [facility] [address] [address] [address] Franchesca Ramos Protein [Mass/Vol] 7.2 g/dL Normal 6.4-8.2 [facility] Comment on above: Performed By: #### H FPF #### [facility] [address] [address] [address] Franchesca Ramos Sodium [Moles/Vol] 139 mmol/L Normal 136-145 [facility] Comment on above: Performed By: #### H FPF #### [facility] [address] [address] [address] Franchesca Ramos Triglyceride [Mass/Vol] 119 mg/dL Normal <=150 [facility] Comment on above: Performed By: #### H FPF #### [facility] [address] [address] [address] Franchesca Ramos TSH 0.648 uIU/mL Normal 0.358-3.740 [facility] Comment on above: Performed By: #### H FPF #### [facility] [address] [address] [address] Franchesca Ramos Urea nitrogen [Mass/Vol] 18.0 mg/dL Normal 7.0-18.0 [facility] Comment on above: Performed By: #### H FPF #### [facility] [address] [address] [address] Franchesca Ramos Urea nitrogen/Creatinine [Mass ratio] 19.8 mg/mg Normal [facility] Comment on above: Performed By: #### H FPF #### [facility] [address] [address] [address] Franchesca Ramos VLDL CALC 23.8 mg/dL Normal [facility] Comment on above: Performed By: #### H FPF #### [facility] [address] [address] [address] Franchesca Ramos CHEMISTRYOrdered By: SYSTEM SYSTEM [...] by: FABY YOUNG Date: 2021-09-23 15:10 Normal [facility] CREATININEon 09-21-2021 Creatinine [Mass/Vol] 0.86 mg/dL Normal 0.52-1.04 [facility] Comment on above: Performed By: #### C MALIK #### [facility] [address] [place] [address] Dr. Franchesca Ramos EGFR-AF BAHAMIAN >60 Normal >=60 [facility] Comment on above: Performed By: #### C MALIK #### [facility] [address] [place] [address] Dr. Franchesca Ramos EGFR-NON AF BAHAMIAN >60 Normal >=60 [facility] Comment on above: Performed By: #### C MAILK #### [facility] [address] [address] [address] Franchesca Ramos TERESA Antinuclear Antibodieson 12-19-2020 Antinuclear Abs, IFA Positive Critically abnormal . [facility] Comment on above: Result Comment: Nega tive <1:80 Borderline 1:80 Positive >1:80 Performed By: #### C RP, CK, CREAT, CBC, ADDONUAPLUS, ESR #### [facility] [address] [place] [address] #### TERESA, C3, C4 #### [facility] , Homogeneous Pattern 1:160 High . [facility] Comment on above: Performed By: #### C RP, CK, CREAT, CBC, ADDONUAPLUS, ESR #### [facility] [address] #### TERESA, C3, C4 #### [facility] , Note 1 Normal . [facility] Comment on above: Result Comment: A po sitive TERESA result may occur in healthy individuals (low titer) or be associated with a variety of diseases. See interpretation chart which is not all inclusive: Pattern Antigen Detected Suggested Disease Association Homogeneous DNA(ds,ss), SLE - High titers Nucleosomes, Histones Drug-induced SLE Speckled Sm, CARPET WEAVER, SCL-70, SLE,MCTD,PSS (diffuse form), SS-A/SS-B Sjogrens Nucleolar SCL-70, PM-1/SCL High titers Scleroderma, PM/DM Centromere Centromere PSS (limited form) w/Crest syndrome variable Nuclear Dot Sp100,p00-nitmms Primary Biliary Cirrhosis Nuclear GP210, Primary Biliary Cirrhosis Membrane miguel A,B,C Performed at: [address] [id number] [employer] Maker: Rickie Hancock PhD, Phone: [phone] Performed By: #### C RP, CK, CREAT, CBC, ADDONUAPLUS, ESR #### [address] #### TERESA, C3, C4 #### [facility] , C-Reactive Proteinon 021 C-Reactive Protein 0.6 mg/dL Normal 0.0-1.0 [facility] Comment on above: Result Comment: PERF ORMED BY: [place] [address] PATHOLOGIST TOOTH POLISHER MARYLU LINARES M.D. Performed By: #### C RP, CK, CREAT, CBC, ADDONUAPLUS, ESR #### [address] #### TERESA, C3, C4 #### [facility] , Complement C3on 12-19-2020 Complement C3 125 mg/dL Normal 82-167 [facility] Comment on above: Result Comment: Perf ormed at: [address] [id number] [employer] Maker: Rickie Hancock PhD, Phone: [phone] Performed By: #### C RP, CK, CREAT, CBC, ADDONUAPLUS, ESR #### [address] #### TERESA, C3, C4 #### [facility] , Complement C4on 12-19-2020 Complement C4 21 mg/dL Normal 12-38 [facility] Comment on above: Result Comment: PERF ORMED BY: [place] [address] PATHOLOGIST [employer] POLISHER MARYLU LINARES M.D. Performed By: #### C RP, CK, CREAT, CBC, ADDONUAPLUS, ESR #### [address] #### TERESA, C3, C4 #### [facility] , Complete Blood Count Auto Di ffon 12-19-2020 Basophils (Bld) [#/Vol] 0.0 10*3/uL Normal 0.0-0.2 [facility] Comment on above: Performed By: #### C RP, CK, CREAT, CBC, ADDONUAPLUS, ESR #### [address] #### TERESA, C3, C4 #### [facility] , Basophils/100 WBC (Bld) 0.8 % Normal . [facility] Comment on above: Performed By: #### C RP, CK, CREAT, CBC, ADDONUAPLUS, ESR #### [address] #### TERESA, C3, C4 #### [facility] , Eosinophils (Bld) [#/Vol] 0.0 10*3/uL Normal 0.0-0.45 [facility] Comment on above: Performed By: #### C RP, CK, CREAT, CBC, ADDONUAPLUS, ESR #### [address] #### TERESA, C3, C4 #### [facility] , Eosinophils/100 WBC (Bld) 0.8 % Normal . [facility] Comment on above: Performed By: #### C RP, CK, CREAT, CBC, ADDONUAPLUS, ESR #### [address] #### TERESA, C3, C4 #### [facility] , Erythrocyte distribution width (RBC) [Ratio] 12.9 % Normal 11.9-15.3 [facility] Comment on above: Performed By: #### C RP, CK, CREAT, CBC, ADDONUAPLUS, ESR #### [address] #### TERESA, C3, C4 #### [facility] , Hematocrit (Bld) [Volume fraction] 41.5 % Normal 34.0-46.4 [facility] Comment on above: Performed By: #### C RP, CK, CREAT, CBC, ADDONUAPLUS, ESR #### [place] [address] [place] #### TERESA, C3, C4 #### [facility] , Hemoglobin (Bld) [Mass/Vol] 14.1 g/dL Normal 11.8-15.4 [facility] Comment on above: Performed By: #### C RP, CK, CREAT, CBC, ADDONUAPLUS, ESR #### [address] #### TERESA, C3, C4 #### [facility] , Lymphocytes (Bld) [#/Vol] 2.3 10*3/uL Normal 1.00-4.8 [facility] Comment on above: Performed By: #### C RP, CK, CREAT, CBC, ADDONUAPLUS, ESR #### [place] [address] [place] #### TERESA, C3, C4 #### [facility] , Lymphocytes/100 WBC (Bld) 39.2 % Normal . [facility] Comment on above: Performed By: #### C RP, CK, CREAT, CBC, ADDONUAPLUS, ESR #### [address] #### TERESA, C3, C4 #### [facility] , MCH (RBC) [Entitic mass] 32.2 pg Normal 24.7-34.3 [facility] Comment on above: Performed By: #### C RP, CK, CREAT, CBC, ADDONUAPLUS, ESR #### [address] #### TERESA, C3, C4 #### [facility] , MCV (RBC) [Entitic vol] 95.2 fL Normal 80-100 [facility] Comment on above: Performed By: #### C RP, CK, CREAT, CBC, ADDONUAPLUS, ESR #### [address] #### TERESA, C3, C4 #### [facility] , Mean Corpuscular HGB Conc 33.9 g/dL Normal 32.0-35.0 [facility] Comment on above: Performed By: #### C RP, CK, CREAT, CBC, ADDONUAPLUS, ESR #### [address] #### TERESA, C3, C4 #### [facility] , Monocytes (Bld) [#/Vol] 0.4 10*3/uL Normal 0.0-0.8 [facility] Comment on above: Performed By: #### C RP, CK, CREAT, CBC, ADDONUAPLUS, ESR #### [place] [address] [place] #### TERESA, C3, C4 #### [facility] , Monocytes/100 WBC (Bld) 6.8 % Normal . [facility] Comment on above: Performed By: #### C RP, CK, CREAT, CBC, ADDONUAPLUS, ESR #### [address] #### TERESA, C3, C4 #### [facility] , Neutrophils (Bld) [#/Vol] 3.1 10*3/uL Normal 1.8-7.7 [facility] Comment on above: Performed By: #### C RP, CK, CREAT, CBC, ADDONUAPLUS, ESR #### [place] [address] [place] #### TERESA, C3, C4 #### [facility] , Neutrophils/100 WBC (Bld) 52.4 % Normal . [facility] Comment on above: Performed By: #### C RP, CK, CREAT, CBC, ADDONUAPLUS, ESR #### [address] #### TERESA, C3, C4 #### [facility] , Nucleated RBC/100 WBC (Bld) [Ratio] 0.0 % Normal 0-0.5 [facility] Comment on above: Performed By: #### C RP, CK, CREAT, CBC, ADDONUAPLUS, ESR #### [place] [address] [place] #### TERESA, C3, C4 #### [facility] , Platelet mean volume (Bld) [Entitic vol] 8.4 fL Normal 6.3-10.7 [facility] Comment on above: Performed By: #### C RP, CK, CREAT, CBC, ADDONUAPLUS, ESR #### [place] [address] [place] #### TERESA, C3, C4 #### [facility] , Platelets (Bld) [#/Vol] 259 10*3/uL Normal 150-450 [facility] Comment on above: Performed By: #### C RP, CK, CREAT, CBC, ADDONUAPLUS, ESR #### [place] [address] [place] #### TERESA, C3, C4 #### [facility] , RBC (Bld) [#/Vol] 4.36 10*6/uL Normal 3.60-5.00 [facility] Comment on above: Performed By: #### C RP, CK, CREAT, CBC, ADDONUAPLUS, ESR #### [address] #### TERESA, C3, C4 #### [facility] , WBC (Bld) [#/Vol] 5.9 10*3/uL Normal 4.5-11.0 [facility] Comment on above: Performed By: #### C RP, CK, CREAT, CBC, ADDONUAPLUS, ESR #### [address] #### TERESA, C3, C4 #### [facility] , Creatine Kinaseon 12-19-2020 CK [Catalytic activity/Vol] 79 U/L Normal 22-269 [facility] Comment on above: Result Comment: PERF ORMED BY: [place] [address] PATHOLOGIST TO[employer] POLISHER MARYLU LINARES M.D. Performed By: #### C RP, CK, CREAT, CBC, ADDONUAPLUS, ESR #### [address] #### TERESA, C3, C4 #### [facility] , Creatinineon 12-19-2020 Creatinine [Mass/Vol] 0.82 mg/dL Normal 0.44-1.03 [facility] Comment on above: Performed By: #### C RP, CK, CREAT, CBC, ADDONUAPLUS, ESR #### [address] #### TERESA, C3, C4 #### [facility] , Estimated GFR ( Bebo > 60 Normal [facility] Comment on above: Result Comment: GFR estimated reference range: According to KDOQI guidelines, <60 ml/min/1.73m2 is sufficient to diagnose a patient with chronic kidney disease. Performed By: #### C RP, CK, CREAT, CBC, ADDONUAPLUS, ESR #### [address] #### TERESA, C3, C4 #### [facility] , Estimated GFR (Non- Am > 60 Normal [facility] Comment on above: Performed By: #### C RP, CK, CREAT, CBC, ADDONUAPLUS, ESR #### [address] #### TERESA, C3, C4 #### [facility] , Dipstick and Microscopicon 0 12-19-2020 Appearance (U) Clear Normal Clear [facility] Comment on above: Order Comment: Name Collection Type:: Clean-Voided Midstream Performed By: #### C RP, CK, CREAT, CBC, ADDONUAPLUS, ESR #### [address] #### TERESA, C3, C4 #### [facility] , Bacteria,Urine None Seen Normal None Seen [facility] Comment on above: Order Comment: Name Collection Type:: Clean-Voided Midstream Performed By: #### C RP, CK, CREAT, CBC, ADDONUAPLUS, ESR #### [address] #### TERESA, C3, C4 #### [facility] , Bilirubin,Urine Negative Normal Negative [facility] Comment on above: Order Comment: Name Collection Type:: Clean-Voided Midstream Performed By: #### C RP, CK, CREAT, CBC, ADDONUAPLUS, ESR #### [address] #### TERESA, C3, C4 #### [facility] , Color (U) Yellow Normal Yellow [facility] Comment on above: Order Comment: Name Collection Type:: Clean-Voided Midstream Performed By: #### C RP, CK, CREAT, CBC, ADDONUAPLUS, ESR #### [facility] [address] [place] [address] #### TERESA, C3, C4 #### [facility] , Glucose Ql (U) Normal Normal Normal [facility] Comment on above: Order Comment: Name Collection Type:: Clean-Voided Midstream Performed By: #### C RP, CK, CREAT, CBC, ADDONUAPLUS, ESR #### [address] #### TERESA, C3, C4 #### [facility] , Hyaline Casts,Urine 0-8 Normal 0-8 [facility] Comment on above: Order Comment: Name Collection Type:: Clean-Voided Midstream Result Comment: PERF ORMED BY: [place] [address] PATHOLOGIST TO[employer] POLISHER MARYLU LINARES M.D. Performed By: #### C RP, CK, CREAT, CBC, ADDONUAPLUS, ESR #### [address] #### TERESA, C3, C4 #### [facility] , Ketones Ql (U) Negative Normal Negative [facility] Comment on above: Order Comment: Name Collection Type:: Clean-Voided Midstream Performed By: #### C RP, CK, CREAT, CBC, ADDONUAPLUS, ESR #### [facility] [address] [place] [address] #### TERESA, C3, C4 #### [facility] , Leukocyte esterase Test strip Ql (U) 1+ High Negative [facility] Comment on above: Order Comment: Name Collection Type:: Clean-Voided Midstream Performed By: #### C RP, CK, CREAT, CBC, ADDONUAPLUS, ESR #### [address] #### TERESA, C3, C4 #### [facility] , Nitrite,Urine Negative Normal Negative [facility] Comment on above: Order Comment: Name Collection Type:: Clean-Voided Midstream Performed By: #### C RP, CK, CREAT, CBC, ADDONUAPLUS, ESR #### [address] #### TERESA, C3, C4 #### [facility] , Occult Blood,Urine Negative Normal Negative [facility] Comment on above: Order Comment: Name Collection Type:: Clean-Voided Midstream Performed By: #### C RP, CK, CREAT, CBC, ADDONUAPLUS, ESR #### [address] #### TERESA, C3, C4 #### [facility] , pH (U) 5.5 [pH] Normal 5.0-9.0 [facility] Comment on above: Order Comment: Name Collection Type:: Clean-Voided Midstream Performed By: #### C RP, CK, CREAT, CBC, ADDONUAPLUS, ESR #### [address] #### TERESA, C3, C4 #### [facility] , Protein,Urine Negative Normal Negative [facility] Comment on above: Order Comment: Name Collection Type:: Clean-Voided Midstream Performed By: #### C RP, CK, CREAT, CBC, ADDONUAPLUS, ESR #### [address] #### TERESA, C3, C4 #### [facility] , RBC,Urine 1-2 Normal 0-4 [facility] Comment on above: Order Comment: Name Collection Type:: Clean-Voided Midstream Performed By: #### C RP, CK, CREAT, CBC, ADDONUAPLUS, ESR #### [place] [address] #### TERESA, C3, C4 #### [facility] , Specificy [place],Urine 1.024 Normal 1.001-1.030 [facility] Comment on above: Order Comment: Name Collection Type:: Clean-Voided Midstream Performed By: #### C RP, CK, CREAT, CBC, ADDONUAPLUS, ESR #### [address] #### TERESA, C3, C4 #### [facility] , Squamous Epithelial Cell,Urine 0-1 Normal 0-2 [facility] Comment on above: Order Comment: Name Collection Type:: Clean-Voided Midstream Performed By: #### C RP, CK, CREAT, CBC, ADDONUAPLUS, ESR #### [address] #### TERESA, C3, C4 #### [facility] , Urobilinogen,Urine Normal Normal Normal [facility] Comment on above: Order Comment: Name Collection Type:: Clean-Voided Midstream Performed By: #### C RP, CK, CREAT, CBC, ADDONUAPLUS, ESR #### [address] #### TERESA, C3, C4 #### [facility] , WBC,Urine 3-4 Normal 0-4 [facility] Comment on above: Order Comment: Name Collection Type:: Clean-Voided Midstream Performed By: #### C RP, CK, CREAT, CBC, ADDONUAPLUS, ESR #### [place] [address] [place] #### TERESA, C3, C4 #### [facility] , Erythrocyte Sedimentation Ra price 12-19-2020 ESR (Bld) [Velocity] 8 mm/h Normal 0-29 [facility] Comment on above: Result Comment: PERF ORMED BY: [place] [address] PATHOLOGIST TO[employer] POLISHER MARYLU LINARES M.D. Performed By: #### C RP, CK, CREAT, CBC, ADDONUAPLUS, ESR #### [facility] [address] #### TERESA, C3, C4 #### [facility] , Vital Signs Date Time Vital Sign Value Performing Clinician Nirmal elizalde 07-01-2023 16:04-0400 Body temperature 97.2 [degF] CHAD Villegas MD Work Phone: [facility] 07-01-2023 16:04-0400 Body weight 78.02 kg CHAD Villegas MD Work Phone: [facility] 07-01-2023 16:04-0400 Diastolic blood pressure 72 mm[Hg] CHAD Villegas MD Work Phone: [facility] 07-01-2023 16:04-0400 Heart rate 64 /min CHAD Villegas MD Work Phone: [facility] 07-01-2023 16:04-0400 Respiratory rate 16 /min CHAD Villegas MD Work Phone: [facility] 07-01-2023 16:04-0400 SaO2% (BldA) [Mass fraction] 99 % CHAD Villegas MD Work Phone: [facility] 07-01-2023 16:04-0400 Systolic blood pressure 104 mm[Hg] CHAD Villegas MD Work Phone: [facility] 07-01-2022 15:52-0400 Body temperature 96.91 [degF] CHAD Villegas MD Work Phone: [facility] 07-01-2022 15:52-0400 Body weight 81.65 kg CHAD Villegas MD Work Phone: [facility] 07-01-2022 15:52-0400 Diastolic blood pressure 71 mm[Hg] CHAD Villegas MD Work Phone: [facility] 07-01-2022 15:52-0400 Heart rate 60 /min CHAD Villegas MD Work Phone: [facility] 07-01-2022 15:52-0400 Respiratory rate 16 /min CHAD Villegas MD Work Phone: [facility] 07-01-2022 15:52-0400 SaO2% (BldA) [Mass fraction] 96 % CHAD Villegas MD Work Phone: [facility] 07-01-2022 15:52-0400 Systolic blood pressure 124 mm[Hg] CHAD Villegas MD Work Phone: [facility] Encounters Encounter Date Encounter Type Care Provider Facility Start: 10-03-2023 End: 10-04-2023 ambulatory SELF REFERRAL Facility:[facility] Start: 07-01-2023 End: 07-02-2023 ambulatory Patience VILLEGAS Facility:[facility] Start: 07-01-2023 End: 07-01-2023 Patient encounter procedure Patience Villegas MD Work Phone: [facility] Comment on above: History of thyroid c ancer (Primary Dx) Start: 06-24-2023 End: 06-24-2023 ambulatory Patience VILLEGAS Facility:[facility] Start: 06-18-2023 Telephone encounter Patience Villegas MD Work Phone: [facility] Comment on above: Orders Start: 05-20-2023 End: 05-21-2023 ambulatory Naomi J Khadijah Facility:[facility] Start: 05-20-2023 End: 05-20-2023 Patient encounter procedure Naomi J Khadijah [facility] Start: 04-23-2023 End: 04-24-2023 ambulatory Naomi J Khadijah Facility:[facility] Start: 04-23-2023 End: 04-23-2023 Lab Drop off Naomi J Khadijah [facility] Start: 09-13-2022 End: 09-13-2022 Patient encounter procedure Naomi J Khadijah [facility] Start: 08-02-2022 End: 08-03-[address] ULISES [...] 04-16-2022 Patient encounter procedure Naomi J Khadijah [facility] Start: 02-19-2022 End: 02-19-2022 Patient encounter procedure Naomijimime Lucio [facility] Start: 09-21-2021 End: 09-22-[address] ULISES [...] of thyroid cancer Expected: 06/29/2024, Expires: 08/29/2024 [facility] Work Phone: Comment on above: Expected: 06/29/2024 , Expires: 08/29/2024 Start: 06-29-2024 End: 08-29-2024 Thyrotropin [Units/volume] in Serum or Plasma TSH BLD Lab Routine History of thyroid cancer Expected: 06/29/2024, Expires: 08/29/2024 [facility] Work Phone: Comment on above: Expected: 06/29/2024 , Expires: 08/29/2024 Start: 06-29-2024 End: 08-29-2024 Thyroxine (T4) [Mass/volume] in Serum or Plasma T4/THYROXINE BLOOD Lab Routine History of thyroid cancer Expected: 06/29/2024, Expires: 08/29/2024 [facility] Work Phone: Comment on above: Expected: 06/29/2024 , Expires: 08/29/2024 Start: 07-01-2023 Adult depression screening assessment DEPRESSION SCREENING [facility] Start: 06-24-2023 End: 08-24-2023 Thyroglobulin and Thyrogobulin Ab panel - Serum or Plasma THYROGLOBULIN, SERUM WITH REFLEX TO IA OR LC-MS/MS Lab Routine History of thyroid cancer Expected: 06/24/2023, Expires: 08/24/2023 [facility] Work Phone: Comment on above: Expected: 06/24/2023 , Expires: 08/24/2023 Start: 06-24-2023 End: 08-24-2023 Thyrotropin [Units/volume] in Serum or Plasma TSH BLD Lab Routine History of thyroid cancer Expected: 06/24/2023, Expires: 08/24/2023 [facility] Work Phone: Comment on above: Expected: 06/24/2023 , Expires: 08/24/2023 Start: 06-24-2023 End: 08-24-2023 Thyroxine (T4) [Mass/volume] in Serum or Plasma T4/THYROXINE BLOOD Lab Routine History of thyroid cancer Expected: 06/24/2023, Expires: 08/24/2023 [facility] Work Phone: Comment on above: Expected: 06/24/2023 , Expires: 08/24/2023 Start: 06-13-2023 Influenza vaccination [facility] Start: 10-13-2022 DEPRESSION ASSESSMENT DEPRESSION ASS ESSMENT [facility] Start: 07-01-2022 End: 08-31-2022 Thyroglobulin Ab [Units/volume] in Serum or Plasma THYROGLOBULIN AB Lab Routine History of thyroid cancer Expected: 07/01/2022, Expires: 08/31/2022 [facility] Work Phone: Comment on above: Expected: 07/01/2022 , Expires: 08/31/2022 Start: 07-01-2022 End: 08-31-2022 Thyroglobulin and Thyrogobulin Ab panel - Serum or Plasma THYROGLOBULIN BLD Lab Routine History of thyroid cancer Expected: 07/01/2022, Expires: 08/31/2022 [facility] Work Phone: Comment on above: Expected: 07/01/2022 , Expires: 08/31/2022 Start: 07-01-2022 End: 08-31-2022 Thyrotropin [Units/volume] in Serum or Plasma TSH BLD Lab Routine History of thyroid cancer Expected: 07/01/2022, Expires: 08/31/2022 [facility] Work Phone: Comment on above: Expected: 07/01/2022 , Expires: 08/31/2022 Start: 07-01-2022 End: 08-31-2022 Thyroxine (T4) [Mass/volume] in Serum or Plasma T4/THYROXINE BLOOD Lab Routine History of thyroid cancer Expected: 07/01/2022, Expires: 08/31/2022 [facility] Work Phone: Comment on above: Expected: 07/01/2022 , Expires: 08/31/2022 Start: 06-21-2022 End: 08-21-2022 Thyroglobulin and Thyrogobulin Ab panel - Serum or Plasma [facility] Work Phone: Comment on above: Expected: 06/21/2022 , Expires: 08/21/2022 Start: 06-21-2022 End: 08-21-2022 Thyrotropin [Units/volume] in Serum or Plasma [facility] Work Phone: Comment on above: Expected: 06/21/2022 , Expires: 08/21/2022 Start: 06-21-2022 End: 08-21-2022 Thyroxine (T4) [Mass/volume] in Serum or Plasma [facility] Work Phone: Comment on above: Expected: 06/21/2022 , Expires: 08/21/2022 Start: 06-20-2022 Adult depression screening assessment DEPRESSION SCREENING [facility] Start: 06-13-2022 Influenza vaccination INFLUENZA (#1) [facility] Start: 03-08-2022 COVID-19 VACCINE (4 - Booster for Pfizer series) COVID-19 VACCINE (4 - Booster for Pfizer series) [facility] Start: 01-03-2022 COVID-19 VACCINE (4 - Pfizer series) COVID-19 VACCINE (4 - Pfizer series) [facility] Start: 2010 SHINGRIX VACCINE (1 of 2) SHINGRIX VACCINE (1 of 2) [facility] Start: 2005 COLOGUARD (FIT-DNA) COLOGUARD (FIT-D NA) [facility] Start: 2005 Colonoscopy COLONOSCOPY [facility] Start: 2005 COLORECTAL CANCER SCREENING COLORECTAL CANCER SCREENING [facility] Start: [address] COLONOGRAPHY [facility] Start: 2005 DIABETES SCREEN DIABETES SCREEN [facility] Start: 2005 Diabetes Screening Diabetes Screenin g [facility] Start: 2005 FECAL OCCULT BLOOD FECAL OCCULT BLOO D [facility] Start: 2005 Lipid 1996 panel - S jass or Plasma Lipid Screening [facility] Start: 2005 LIPID SCREEN LIPID SCREEN [facility] Start: 2005 SIGMOIDOSCOPY SIGMOIDOSCOPY [facility] Start: 2000 Mammography [facility] Start: 1990 HPV TESTING HPV TESTING [facility] Start: 1981 PAP TESTING PAP TESTING [facility] Start: 1979 Urine microalbumin profile [facility] Start: 1978 HEPATITIS C SCREENING HEPATITIS C SC REENING [facility] Start: 1978 HIV SCREENING HIV SCREENING [facility] Immunizations Immunization Date Immunization Notes Care Provider Fa johnson 07-14-2022 influenza virus vacc ine, unspecified formulation NA Bakari [place] Work Phone: [facility] Payers Date Payer Category Payer Unknown [id number] 1960 Unknown [id number] [id number] [id number] 1960 Unknown [id number] [id number] [id number] 1960 Unknown [id number] [id number] [id number] 1960 Unknown [id number] 2.16.84 [id number] 1960 Unknown [id number] 2.16.8 [id number] 1960 Unknown [id number] 2.16.8 [id number] 1960 Unknown [id number] 2.16.8 [id number] 1959 Self-pay [id number] 1959 Unknown [id number] Unknown [id number] Social History Date Type Detail Facility Tobacco smoking status Never smoker [facility] Start: 07-01-2022 End: 11-08-2022 Sex Assigned At Female [facility] Tobacco smoking status No Smokin g Status Entered [facility] Start: 05-19-2018 End: 07-01-2022 Tobacco smoking status NHIS Never smoked tobacco [facility] Start: 05-19-2018 End: 07-01-2022 Tobacco use and exposure Smokeless tobacco non-user [facility] Start: 05-18-2019 End: 07-01-2023 Alcohol intake Not Asked [facility] Start: 1960 Sex Assigned At Not on file [facility] Start: 06-11-2022 End: 07-01-2022 Exposure to SARS-CoV-2 (event) Not sure [facility] Tobacco smoking status No Smokin g Status Entered [facility] Start: 07-01-2022 End: 11-08-2022 History of Social function [facility] Adult Depression Screening Assessment 0 [facility] Clinical Notes 06-21-2022 to 07-01-2023 Patience Villegas MD - 07/01/2023 4:00 PM EDTTelephone Encounter - Kati Nolen LPN - 06/18/2023 9:42 AM EDTG Marbin Villegas MD - 07/01/2022 3:52 PM EDTRadiology Note Date & Type Note Facility 07-01-2023 Note HNO ID: [id number] Author: Patience Villegas MD Service: ? Author [...] as active information included in the EMR. [facility] 07-01-2023 History of Presen t illness Narrative [...] in the EMR. documented in this encounter [facility] 06-18-2023 Miscellaneous Notes Please sign pended lab orders for upcoming yearly follow up. Kati Nolen LPN documented in this encounter [facility] 04-23-2023 Evaluation + Plan note Diagnostic Tests PendingPAP [id number] [facility] 07-01-2022 History of Presen t illness Narrative [...] in the EMR. documented in this encounter [facility] [facility] Miscellaneous Notes R/s appointment to that date and time. Pt was contacted due to TG not resulted yet. She would like to reschedule to next week to have all results at visit. PSS- pt needs 4pm appt. Please move on epic from today to Sunday 07/01 at 4pm. Thank you Janie Sellers RN documented in this encounter [facility] 06-21-2022 Miscellaneous Notes Please sign orders for today. Janie Sellers RN documented in this encounter [facility] Evaluation + Plan note No data available for this section [facility] Evaluation + Plan note Future Appointments Appointment Date:08/03/2022 07:15:00 AM Scheduled Provider: Location:FT.MAMMOGRAM Appointment Type:MA Screen (FT) Future Scheduled TestsMA Mamm Screen w/CAD if perf and 3D [place] 08/03/22 [facility] Evaluation note Diagnosis History of thyroid cancer- Primary Personal history of malignant neoplasm of thyroid [facility] History of thyroid cancer- Primary Personal history of malignant neoplasm of thyroid documented in this encounter [facility] note* Diagnosis History of thyroid cancer- Primary Personal history of malignant neoplasm of thyroid [facility] No data available for this section [facility] No data available for this section [facility] Summary Purpose Family History No Family History Records FoundNo Family History Records FoundNo Family History Records FoundNo Family History Records Found Advance Directives No Advanced Directives Records FoundNo Advanced Directives Records FoundNo Advanced Directives Records FoundNo Advanced Directives Records Found Additional Source Comments INFORMATION SOURCE (unrecogn ized section and content) DATE CREATED AUTHOR 10/01/2021 [facility] DATE CREATED AUTHOR AUTHOR'S ORGANIZ ATION 08/08/2022 [facility] DATE CREATED AUTHOR AUTHOR'S ORGANIZ ATION 07/03/2023 [facility] DATE CREATED AUTHOR AUTHOR'S ORGANIZ ATION 10/10/2023 [facility] Care Team (unrecognized sect ion and content) [employer] Relationship Specialty Start Date End Date Ulises Szymanski MD PCP - General Family Practice 01/29/12 [employer] Relationship Specialty Start Date End Date Ulises Szymanski MD PCP - General Family Practice 01/29/12 [employer] Relationship Specialty Start Date End Date Ulises Szymanski MD PCP - General Family Medicine 01/29/12 [employer] Relationship Specialty Start Date End Date Ulises Szymanski MD PCP - General Family Medicine 01/29/12 Source Comments (unrecognize d section and content) In the event this informatio n is protected by the Federal Confidentiality of Alcohol and Drug Abuse Patient Records regulations: The Federal rules restrict any use of the information to criminally investigate or prosecute any alcohol or drug abuse patient.[facility] the event this information is protected by the Federal Confidentiality of Alcohol and Drug Abuse Patient Records regulations: The Federal rules restrict any use of the information to criminally investigate or prosecute any alcohol or drug abuse patient.[facility] the event this information is protected by the Federal Confidentiality of Alcohol and Drug Abuse Patient Records regulations: The Federal rules restrict any use of the information to criminally investigate or prosecute any alcohol or drug abuse patient.[facility] the event this information is protected by the Federal Confidentiality of Alcohol and Drug Abuse Patient Records regulations: The Federal rules restrict any use of the information to criminally investigate or prosecute any alcohol or drug abuse patient.[facility] Hospital[facility] the event this information is protected by the Federal Confidentiality of Alcohol and Drug Abuse Patient Records regulations: The Federal rules restrict any use of the information to criminally investigate or prosecute any alcohol or drug abuse patient.[facility] Reason for Visit (unrecogniz ed section and [...] BE BASED ON THE PRIMARY CLINICAL RECORDS. [facility]. provides no warranty or guarantee of the accuracy or completeness of information in this document.
--- NOTE | 2024-02-23 07:03 | US_ITS ---
The [address] [address] Patient Name: IRAJ MOFFETT MRN: [id number] date: 1960 Sex: F Assigned Patient Location: [place] Current Patient Location: [place] Accession/Order Number: [id number] Exam Date: 02/23/2024 07:20 Report Date: 02/23/2024 08:58 At the request of: ULISES BACK Procedure: US pelvis transvaginal EXAMINATION: US pelvis transvaginal HISTORY: Pelvic Tenderness COMPARISON: No relevant comparison available. FINDINGS: The uterus is normal in size and contour measuring 4.7 x 2.2 x 3.2 cm. No focal myometrial mass. Endometrium measures 2.5 mm, heterogeneous with some hyperechogenicity likely representing calcification Identified in the cervix is a 1.0 x 1.4 x 1.2 cm area of hypoechogenicity, indeterminate The ovaries are not visualized consistent with the history of bilateral oophorectomy No free fluid US/US pelvis transvaginal IMPRESSION: 1.4 cm hypoechogenic mass in the cervix, direct visualization recommended Electronically authenticated by: GIAN LEIVA Date: 02/23/2024 08:58
== END 2024-02-23 07:01 | disposition home or self-care (01) ==
LOC: US 07:00
PROVIDERS: PCP Family Medicine; Visit Provider Family Medicine
DX: Z00.00 Encounter for general adult medical examination without abnormal findings (principal); R10.2 Pelvic and perineal pain; R19.00 Intra-abdominal and pelvic swelling, mass and lump, unspecified site
CPT/HCPCS: 76830

== ENCOUNTER 2024-04-02 06:49 | Outpatient (OUT) | payer OTHER, SELFPAY ==
--- OUTSIDE RECORDS SUMMARY | 2024-04-02 06:52 | XMS_ITS | CCD ---
Author Organization [facility] Care Team Providers Care Clinical Trainer Name Role Phone Ulises Szymanski Primary Care Physician [phone] Ulises Szymanski MD Primary Care Provider [phone] Ulises Szymanski MD Primary Care Provider [phone] NAZANIN, DR MONTGOMERY Consulting Unavailable HOY, DR MONTGOMERY Primary Care Unavailable HOY, DR MONTGOMERY Admitting Unavailable HOY, DR MONTGOMERY Attending Unavailable CHARMAINEY, DR MONTGOMERY Primary Care Unavailable [...] Unavailable WEST, DR GIAN Barnes Consulting Unavailable HOY, DR MONTGOMERY Consulting Unavailable CHARMAINEY, DR MONTGOMERY Primary Care Unavailable HOY, DR MONTGOMERY Admitting Unavailable HOY, DR MONTGOMERY Attending Unavailable WEST, DR GIAN Barnes Consulting Unavailable Ulises Szymanski MD Primary Care Provider [phone] Patience VILLEGAS Attending Unavailable Patience VILLEGAS Referring Unavailable ULISES SZYMANSKI Primary Care Unavailable Patience VILLEGAS Referring Unavailable ULISES SZYMANSKI Primary Care Unavailable REFERRAL, SELF Attending Unavailable REFERRAL, SELF Admitting Unavailable Khadijah, Naomi J Referring Unavailable Khadijah, Naomi J Consulting Unavailable Khadijah, ASSISTANT CONSTRUCTION SUPERINTENDENT Naomi J Consulting Unavailable Khadijah, Naomi J Consulting Unavailable Khadijah, Naomi J Admitting Unavailable Khadijah, Naomi J Referring Unavailable Khadijah, Naomi J Attending Unavailable Khadijah Naomi J Admitting Unavailable Naomi Lucio Attending Unavailable Medications Current Medications Medication Drug [...] Test Name Value Interpretation Reference Range Facility Patient Letter FTon 2023 Patient Letter FT March 04, [address] [address] : 1960 Dear Martita, This is a reminder that you are due for an appointment with [facility]. Please contact our office at [phone] to schedule an appointment at your earliest convenience. Thank you, [facility] Patient Letter [facility] March 04, [address] [address] : 1960 Dear Martita, This is a reminder that you are due for an appointment with [facility]. Please contact our office at [phone] to schedule an appointment at your earliest convenience. Thank you, [facility] Normal [facility] MA Mamm Screen w/CAD if perf and [...] VERY IMPORTANT TO YOUR HEALTH. THE CURRENT [place] COLLEGE OF RADIOLOGY AND NATIONAL COMPREHENSIVE CANCER [...] BI-RADS Category 1-Negative Recommendation: Normal interval follow-up Normal [facility] Consent for Treatmenton 09-13 Consent for Treatment [id number] #1.00TIFF Normal [facility] CNOVon 07-01-2023 CNOV Office Visit (RADTSA) MARTITA MOFFETT ([id number]) 1960 F Date Time Provider Department 07/01/23 [...] in the EMR. Referring Provider: Patience VILLEGAS [[id number]] Allergies As of Date: 07/01/2023 (No Known Allergies) Date Reviewed: 07/01/2023 Reviewed by: Kati Nolen LPN - Fully Assessed Reason for Visit: Thyroid Cancer [879] Primary Visit Diagnosis:History of thyroid cancer [Z85.850] Order(s):TSH BLD [SQTSH] Order #: [id number] FUTURE T4/THYROXINE BLOOD [SQT4] Order #: [id number] FUTURE THYROGLOBULIN BY MASS SPECTROMETRY [SQTGMSMS] Order #: [id number] FUTURE Prescriptions as of 07/01/2023 - vitamin [...] cancer [Z85.850] (more content not included)... Normal [facility] T4 SerPl-pratikon 06-24-2023 T4 [Mass/Vol] 8.2 ug/dL Normal 5.5-10.2 [facility] Comment on above: Order Comment: Speci men Type: BLOOD SPECIMEN Ordering Facility: [facility] Address: [address] [place], [place] [address] Performed By: #### 3 016-3, 3026-2 #### [facility] CLIA [id number] [address] [place], [place] [address]K [id number] TSH SerPl-aCncon 06-24-2023 TSH Qn 0.345 m[IU]/L Normal 0.270-4.200 [facility] Comment on above: Order Comment: Omar acosta Type: BLOOD SPECIMEN Ordering Facility: [facility] Address: [address] [place] [address] Performed By: #### 3 016-3, 3026-2 #### [facility] CLIA [id number] [address] [place] [address] Thyroglobulin and Thyrogobul in Ab panelon 06-24-2023 Thyroglobulin Ab Qn [IU]/mL Normal <4.0 [facility] Comment on above: Order Comment: Omar acosta Type: BLOOD SPECIMEN Ordering Facility: [facility] Address: [address] [place] [address] Result Comment: The Thyroglobulin Antibody test was performed using the [employer] DXI paramagnetic particle chemiluminescent immunoassay method. Results obtained with different assay methods or kits cannot be used interchangeably. Performed By: #### 5 7780-9 #### [facility] CLIA [id number] [address] [place] [address] THYROGLOBULIN, SERUM <0.1 Low 1.6-50.0 [facility] Comment on above: Order Comment: Omar acosta Type: BLOOD SPECIMEN Ordering Facility: [facility] Address: [address] [place] [address] Result Comment: The Thyroglobulin test was performed using the [employer] DXI paramagnetic particle chemiluminescent immunoassay method. Results obtained with different assay methods or kits cannot be used interchangeably. Performed By: #### 5 7780-9 #### [facility] CLIA [id number] [address] [place] [address] OF [place] CNPNon 06-18-2023 CNPN Telephone (AdlyfeA) MARTITA MOFFETT ([id number]) 1960 F Date Time Provider Department 06/18/23 Patience VILLEGAS During your visit today, we recorded the following information about you: Kati Nolen LPN 06/18/2023 9:44 AM Signed Please sign pended lab orders for upcoming yearly follow up. Kati Nolen LPN Allergies As of Date: 06/18/2023 (No Known Allergies) Date Reviewed: 06/20/2021 Reviewed by: Janie Sellers RN - Fully Assessed Reason for Visit: Orders [681] Primary Visit Diagnosis:History of thyroid cancer [Z85.850] Order(s):TSH BLD [SQTSH] Order #: [id number] FUTURE T4/THYROXINE BLOOD [SQT4] Order #: [id number] FUTURE THYROGLOBULIN, SERUM WITH REFLEX TO IA OR LC-MS/MS [SQTHYRORF] Order #: [id number] FUTURE Prescriptions as of 06/18/2023 - levothyroxine [...] Status:Closed by Patience VILLEGAS on 06/18/23 Normal [facility] MRI Breast w/o and w/ Contra Jaja dumont 05-22-2023 MRI Breast w/o and w/ Contrast, [...] images were generated at the dedicated breast BA Insight[employer]ad workstation FINDINGS: Both breasts are heterogeneously dense with minimal background parenchymal enhancement. There are no suspicious masses, areas of abnormal masslike enhancement, suspicious lymphadenopathy, or other findings of concern identified. CAD analysis was performed and used in the interpretation. Board Certified Radiologists. Accredited by the ACR and FDA. MAMMOGRAPHY IS VERY IMPORTANT TO YOUR HEALTH. THE CURRENT [place] COLLEGE OF RADIOLOGY AND NATIONAL COMPREHENSIVE CANCER [...] MultiHance Contrast amount in ml's: 15 Normal [facility] CHEMISTRYOrdered By: SYSTEM SYSTEM on 05-20-2023 25-hydroxyvitamin D3 [Mass/Vol] 40.2 ng/mL Normal 30.0 - 100.0 ng/mL [facility] Remisol Calcium [Mass/Vol] 9.4 mg/dL Normal 8.9 - 11. 1 mg/dL [facility] Remisol Creatinine [Mass/Vol] 0.9 mg/dL Normal 0.5 - 1.3 mg/dL [facility] Remisol GFR/1.73 sq M.predicted among non-blacks MDRD (S/P/Bld) [Vol rate/Area] 72 mL/min/1.73 m2 Normal >=59mL/min/1. 73 m2 [facility] Chem S Calciumon 05-20-2023 Calcium [Mass/Vol] 9.4 mg/dL Normal 8.9-11.1 [facility] Comment on above: Performed By: #### 5 [id number], [id number], [id number], [id number] #### [facility] [address] [place] [address] Consent for Treatmenton Consent for Treatment [id number] 30 [id number] #1.00CD:127 Normal [facility] Creatinineon 05-20-2023 Creatinine [Mass/Vol] 0.9 mg/dL Normal 0.5-1.3 [facility] Comment on above: Performed By: #### 5 [id number], [id number], [id number], [id number] #### [facility] [address] [place] [address] Physician Orderon 05-20-2023 Physician Order [id number] 0#1.00CD:127 Normal [facility] RAD - MRI Screening Formon 0 05-20-2023 RAD - MRI Screening Form [id number] 1#1.00CD:127 Normal [facility] Vitamin D 25 Hydroxyon 05-20 25-hydroxyvitamin D3 [Mass/Vol] 40.2 ng/mL Normal 30.0-100.0 [facility] Comment on above: Result Comment: Vit jurado D deficiency has been defined as a level of serum 25-OH vitamin D less than 20 ng/mL (1,2) by the [place] of Medicine and an Endocrine Society practice guideline. The Endocrine Society further defined vitamin D insufficiency as a level between 21 and 29 ng/mL (2). 1. IOM ([place] of Medicine). 2010. Dietary reference intakes for calcium and D. [place]: The National Academies Press. 2. Ekta MF, Roxanna ELLIS, Genesis HIGHTOWER, et al. Evaluation, treatment, and prevention of vitamin D deficiency: an Endocrine Society clinical practice guideline. JCEM. 2010; 96 (7):1911-30. Performed By: #### 5 [id number], [id number], 0740560, [id number] #### [facility] [address] [place] [address] eGFRon 05-20-2023 GFR/1.73 sq M.predicted among non-blacks MDRD (S/P/Bld) [Vol rate/Area] 72 mL/min/1.73 m2 Normal >=59 [facility] Comment on above: Order Comment: Order added by Discern Expert. Result Comment: Fire Tender sara kidney disease could be indicated at eGFR's of less than 60 mL/min/1.73m2. Kidney failure is indicated at less than 15 mL/min/1.73m2. Performed By: #### 5 [id number], [id number], 6896551, [id number] #### [facility] [address] [place] [address] Physician Orderon 05-19-2023 Physician Order [id number] 7#1.00CD:127 Normal [facility] Physician Orderon 05-09-2023 Physician Order [id number] #1.00CD:127 Normal [facility] PAP [id number] 04-28-2023 Cytology report Cyto stain Doc (Cvx/Vag) Note Invalid Interpretation Code [facility] Comment on above: Result Comment: TEST S RESULT FLAG UNITS REF RANGE LAB Clinician Provided Cytology Information Source.............Endocervix No. of containers..01 ThinPrep Vial DIAGNOSIS: 01 NEGATIVE FOR INTRAEPITHELIAL LESION OR MALIGNANCY. CELLULAR CHANGES ASSOCIATED WITH ATROPHY ARE PRESENT. Specimen adequacy: 01 Satisfactory for evaluation. Endocervical component may not be distinguished in cases of atrophy. Performed by: 01 Cee Padilla, Crew Director ([facility]) . 01 Note: Note 01 The Pap [...] <-Panic Low,>-Panic High,A-Abnormal,AA-Critical Abnormal Performed at: [address] [facility] [place] [address] Elda Sullivan MD, Performed By: #### 5 [id number], [id number], [id number], [id number] #### [facility] [address] [place] [address] HPV 16+18+31+33+35+39+45+ 51+52+56+58+59+66+68 DNA Probe+sig amp Ql (Cvx) Negative Invalid Interpretation Code Negative [facility] Comment on above: Result Comment: This nucleic acid amplification test detects fourteen high-risk HPV types (16,18,31,33,35,39,45,51,52,56,58,59,66,68) without differentiation. Performed at: [facility] [address] [place], [place] [id number] MD Laurie Schroeder Performed at: =G [facility] [address] [facility], [place] [id number] MD Laurie Schroeder Performed By: #### 5 [id number], [id number], [id number], [id number] #### [facility] [address] [place] [address] PAP [id number] 04-23-2023 Gynecological Body Site ENDOCERVIX Normal [facility] Comment on above: Performed By: #### 5 [id number], [id number], 8281571, [id number] #### [facility] [address] [place] [address] Physician Orderon 04-23-2023 Physician Order [id number] 1#1.00CD:127 [address] [facility] CT ABD/PELVIS WO CONon 08-02 CT [...] by: GIAN LEIVA Date: 2022-08-02 13:33 Normal [facility] XR KUB 1 VIEWon 08-01-2022 XR KUB [...] by: GIAN LEIVA Date: 2022-08-01 12:01 Normal [facility] CBC AUTO DIFFon 05-30-2022 BASO # 0.1 103/ul Normal 0.0-0.1 [facility] Comment on above: Performed By: #### H FPFCBC #### [facility] [address] [place] [address] Dr. Franchesca Ramos Basophils/100 WBC (Bld) 1.0 % Normal 0.2-2.0 [facility] Comment on above: Performed By: #### H FPFCBC #### [facility] [address] [place] [address] Dr. Franchesca Ramos EO # 0.1 103/ul Normal 0.0-0.7 [facility] Comment on above: Performed By: #### H FPFCBC #### [facility] [address] [address] [address] Franchesca Ramos Eosinophils/100 WBC (Bld) 1.4 % Normal 0.9-7.0 [facility] Comment on above: Performed By: #### H FPFCBC #### [facility] [address] [place] [address] Dr. Franchesca Ramos Erythrocyte distribution width (RBC) [Ratio] 12.8 % Normal 11.0-15.0 [facility] Comment on above: Performed By: #### H FPFCBC #### [facility] [address] [address] [address] Franchesca Ramos Hematocrit (Bld) [Volume fraction] 40.5 % Normal 36.0-48.0 [facility] Comment on above: Performed By: #### H FPFCBC #### [facility] [address] [address] [address] Franchesca Ramos Hemoglobin (Bld) [Mass/Vol] 13.6 g/dL Normal 12.0-16.0 [facility] Comment on above: Performed By: #### H FPFCBC #### [facility] [address] [place] [address] Dr. Franchesca Ramos IG # 0.02 10e3/ul Normal 0.00-0.03 [facility] Comment on above: Performed By: #### H FPFCBC #### [facility] [address] [place] [address] Dr. Franchesca Ramos IG % 0.3 % Normal 0.0-0.5 [facility] Comment on above: Performed By: #### H FPFCBC #### [facility] [address] [place] [address] Dr. Franchesca Ramos LYMPH # 2.6 103/ul Normal 1.2-3.8 [facility] Comment on above: Performed By: #### H FPFCBC #### [facility] [address] [place] [address] Dr. Franchesca Ramos Lymphocytes/100 WBC (Bld) 44.3 % Normal 20.5-60.0 [facility] Comment on above: Performed By: #### H FPFCBC #### [facility] [address] [place] [address] Dr. Franchesca Ramos MCH (RBC) [Entitic mass] 31.7 pg Normal 26.7-34.0 [facility] Comment on above: Performed By: #### H FPFCBC #### [facility] [address] [place] [address] Dr. Franchesca Ramos MCHC (RBC) [Mass/Vol] 33.6 g/dL Normal 29.9-35.2 [facility] Comment on above: Performed By: #### H FPFCBC #### [facility] [address] [place] [address] Dr. Franchesca Ramos MCV (RBC) [Entitic vol] 94.4 fL Normal 81.0-99.0 [facility] Comment on above: Performed By: #### H FPFCBC #### [facility] [address] [place] [address] Dr. Franchesca Ramos MONO # 0.5 103/ul Normal 0.3-0.8 [facility] Comment on above: Performed By: #### H FPFCBC #### [facility] [address] [place] [address] Dr. Franchesca Ramos Monocytes/100 WBC (Bld) 8.5 % Normal 1.7-12.0 [facility] Comment on above: Performed By: #### H FPFCBC #### [facility] [address] [place] [address] Dr. Franchesca Ramos NEUT # 2.6 103/ul Normal 1.4-6.5 [facility] Comment on above: Performed By: #### H FPFCBC #### [facility] [address] [place] [address] Dr. Franchesca Ramos Neutrophils/100 WBC (Bld) 44.5 % Normal 43.0-75.0 [facility] Comment on above: Performed By: #### H FPFCBC #### [facility] [address] [place] [address] Dr. Franchesca Ramos Platelet mean volume (Bld) [Entitic vol] 10.2 fL Normal 9.5-13.5 [facility] Comment on above: Performed By: #### H FPFCBC #### [facility] [address] [place] [address] Dr. Franchesca Ramos PLT 241 103/ul Normal 150-450 [facility] Comment on above: Performed By: #### H FPFCBC #### [facility] [address] [place] [address] Dr. Franchesca Ramos RBC 4.29 106/ul Normal 4.20-5.40 [facility] Comment on above: Performed By: #### H FPFCBC #### [facility] [address] [place] [address] Dr. Franchesca Ramos WBC 5.9 103/ul Normal 4.0-11.0 [facility] Comment on above: Performed By: #### H FPFCBC #### [facility] [address] [place] [address] Dr. Franchesca Ramos [employer]ALTH[employer] PROFILEon 022 Albumin [Mass/Vol] 4.0 g/dL Normal 3.4-5.0 [facility] Comment on above: Performed By: #### H FPF #### [facility] [address] [place] [address] Dr. Franchesca Ramos Albumin/Globulin [Mass ratio] 1.3 {ratio} Normal [facility] Comment on above: Performed By: #### H FPF #### [facility] [address] [place] [address] Dr. Franchesca Ramos ALP [Catalytic activity/Vol] 54 U/L Normal 46-116 [facility] Comment on above: Performed By: #### H FPF #### [facility] [address] [place] [address] Dr. Franchesca Ramos ALT [Catalytic activity/Vol] 23 U/L Normal 14-59 [facility] Comment on above: Performed By: #### H FPF #### [facility] [address] [place] [address] Dr. Franchesca Ramos AST [Catalytic activity/Vol] 17 U/L Normal 15-37 [facility] Comment on above: Performed By: #### H FPF #### [facility] [address] [place] [address] Dr. Franchesca Ramos Bilirubin [Mass/Vol] 0.7 mg/dL Normal 0.2-1.0 [facility] Comment on above: Performed By: #### H FPF #### [facility] [address] [place] [address] Dr. Franchesca Ramos Calcium [Mass/Vol] 8.9 mg/dL Normal 8.5-10.1 [facility] Comment on above: Performed By: #### H FPF #### [facility] [address] [address] [address] Franchesca Ramos Chloride [Moles/Vol] 104 mmol/L Normal 98-107 [facility] Comment on above: Performed By: #### H FPF #### [facility] [address] [address] [address] Franchesca Raoms CHOL-HDL RATIO NORM SEE BELOW Normal [facility] Comment on above: Result Comment: 3.3 - 4.4 LOW RISK 4.4 - 7.1 AVERAGE RISK 7.1 - 11.0 MODERATE RISK >11.0 HIGH RISK Performed By: #### H FPF #### [facility] [address] [place] [address] Dr. Franchesca Ramos Cholesterol [Mass/Vol] 175 mg/dL Normal <=200 [facility] Comment on above: Performed By: #### H FPF #### [facility] [address] [address] [address] Franchesca Ramos Cholesterol in HDL [Mass/Vol] 59 mg/dL Normal 40-60 [facility] Comment on above: Performed By: #### H FPF #### [facility] [address] [place] [address] Dr. Franchesca Ramos Cholesterol in LDL [Mass/Vol] 92.2 mg/dL Normal [facility] Comment on above: Performed By: #### H FPF #### [facility] [address] [address] [address] Franchesca Ramos Cholesterol.total/Cho lesterol in HDL [Mass ratio] 3.0 {ratio} Normal [facility] Comment on above: Performed By: #### H FPF #### [facility] [address] [address] [address] Franchesca Ramos CO2 [Moles/Vol] 27.7 mmol/L Normal 21.0-32.0 [facility] Comment on above: Performed By: #### H FPF #### [facility] [address] [address] [address] Franchesca Ramos Creatinine [Mass/Vol] 0.91 mg/dL Normal 0.55-1.02 [facility] Comment on above: Performed By: #### H FPF #### [facility] [address] [address] [address] Franchesca Ramos Globulin (S) [Mass/Vol] 3.2 g/dL Normal [facility] Comment on above: Performed By: #### H FPF #### [facility] [address] [address] [address] Franchesca Ramos Glucose [Mass/Vol] 89 mg/dL Normal 74-106 [facility] Comment on above: Performed By: #### H FPF #### [facility] [address] [address] [address] Franchesca Ramos HDL NORMAL > or = 60 mg/dl - LOW CARDIOVASCULAR RISK <40 mg/dl - HIGH CARDIOVASCULAR RISK Normal [facility] Comment on above: Performed By: #### H FPF #### [facility] [address] [address] [address] Franchesca Ramos LDL CALC NORMAL SEE BELOW Normal [facility] Comment on above: Result Comment: <100 mg/dl OPTIMAL 100 - 129 mg/dl NEAR OR ABOVE OPTIMAL 130 - 159 mg/dl BORDERLINE HIGH 160 - 189 mg/dl HIGH >190 mg/dl VERY HIGH Performed By: #### H FPF #### [facility] [address] [address] [address] Franchesca Ramos Potassium [Moles/Vol] 3.8 mmol/L Normal 3.5-5.1 [facility] Comment on above: Performed By: #### H FPF #### [facility] [address] [address] [address] Franchesca Ramos Protein [Mass/Vol] 7.2 g/dL Normal 6.4-8.2 [facility] Comment on above: Performed By: #### H FPF #### [facility] [address] [address] [address] Franchesca Ramos Sodium [Moles/Vol] 139 mmol/L Normal 136-145 [facility] Comment on above: Performed By: #### H FPF #### [facility] [address] [address] [address] Franchesca Ramos Triglyceride [Mass/Vol] 119 mg/dL Normal <=150 [facility] Comment on above: Performed By: #### H FPF #### [facility] [address] [address] [address] Franchesca Ramos TSH 0.648 uIU/mL Normal 0.358-3.740 [facility] Comment on above: Performed By: #### H FPF #### [facility] [address] [address] [address] Franchesca Ramos Urea nitrogen [Mass/Vol] 18.0 mg/dL Normal 7.0-18.0 [facility] Comment on above: Performed By: #### H FPF #### [facility] [address] [address] [address] Franchesca Ramos Urea nitrogen/Creatinine [Mass ratio] 19.8 mg/mg Normal [facility] Comment on above: Performed By: #### H FPF #### [facility] [address] [place] [address] Dr. Franchesca Ramos VLDL CALC 23.8 mg/dL Normal [facility] Comment on above: Performed By: #### H FPF #### [facility] [address] [address] [address] Franchesca Ramos CHEMISTRYOrdered By: SYSTEM SYSTEM on 04-16-2022 25-hydroxyvitamin D3 [Mass/Vol] 61.1 ng/mL Normal 30.0 - 100.0 ng/mL FT Remisol Calcium [Mass/Vol] 9.5 mg/dL Normal 8.9 - 11. 1 mg/dL [facility] Remisol Creatinine [Mass/Vol] 0.7 mg/dL Normal 0.5 - 1.3 mg/dL [facility] Remisol GFR/1.73 sq M.predicted among blacks MDRD (S/P/Bld) [Vol rate/Area] mL/min/1.73 m2 Normal >=59mL/min/1. 73 m2 [facility] Chem S GFR/1.73 sq M.predicted among non-blacks MDRD (S/P/Bld) [Vol rate/Area] mL/min/1.73 m2 Normal >=59mL/min/1. 73 m2 [facility] Chem S CHEMISTRYOrdered By: SYSTEM SYSTEM on 02-19-2022 Creatinine [Mass/Vol] 0.7 mg/dL Normal 0.5 - 1.3 mg/dL [facility] Remisol GFR/1.73 sq M.predicted among blacks MDRD (S/P/Bld) [Vol rate/Area] mL/min/1.73 m2 Normal >=59mL/min/1. 73 m2 [facility] Chem S GFR/1.73 sq M.predicted among non-blacks MDRD (S/P/Bld) [Vol rate/Area] mL/min/1.73 m2 Normal >=59mL/min/1. 73 m2 [facility] Chem S CTA CHEST WO W CONon [...] YOUNG Date: 2021-09-23 15:10 Normal [facility] CREATININEon 09-21-2021 Creatinine [Mass/Vol] 0.86 mg/dL Normal 0.52-1.04 [facility] Comment on above: Performed By: #### C MALIK #### [facility] [address] [address] [address] Franchesca Ramos EGFR-AF COLOMBIAN >60 Normal >=60 [facility] Comment on above: Performed By: #### C MALIK #### [facility] [address] [place], [place] [address] Dr. Franchesca Ramos EGFR-NON AF COLOMBIAN >60 Normal >=60 [facility] Comment on above: Performed By: #### C MALIK #### [facility] [address] [place] [address] [address] Franchesca Ramos TERESA Antinuclear Antibodieson 12-19-2020 Antinuclear Abs, IFA Positive Critically abnormal . [facility] Comment on above: Result Comment: Nega tive <1:80 Borderline 1:80 Positive >1:80 Performed By: #### C RP, CK, CREAT, CBC, ADDONUAPLUS, ESR #### [facility] [address] [place] [address] [place] #### TERESA, C3, C4 #### [facility] , Homogeneous Pattern 1:160 High . [facility] Comment on above: Performed By: #### C RP, CK, CREAT, CBC, ADDONUAPLUS, ESR #### [facility] [address] [place] [address] [place] #### TERESA, C3, C4 #### [facility] , Note 1 Normal . [facility] Comment on above: Result Comment: A po sitive TERESA result may occur in healthy individuals (low titer) or be associated with a variety of diseases. See interpretation chart which is not all inclusive: Pattern Antigen Detected Suggested Disease Association Homogeneous DNA(ds,ss), SLE - High titers Nucleosomes, Histones Drug-induced SLE Speckled Sm, CHAIR AND COUCH MAKER, SCL-70, SLE,MCTD,PSS (diffuse form), SS-A/SS-B Sjogrens Nucleolar SCL-70, PM-1/SCL High titers Scleroderma, PM/DM Centromere Centromere PSS (limited form) w/Crest syndrome variable Nuclear Dot [id number] Primary Biliary Cirrhosis Nuclear GP210, Primary Biliary Cirrhosis Membrane miguel A,B,C Performed at: - [facility] [address] [id number] Hearing Aid Repairer: Rickie Hancock PhD, Phone: [phone] Performed By: #### C RP, CK, CREAT, CBC, ADDONUAPLUS, ESR #### [address] #### TERESA, C3, C4 #### [facility] , C-Reactive Proteinon 021 C-Reactive Protein 0.6 mg/dL Normal 0.0-1.0 [facility] Comment on above: Result Comment: PERF ORMED BY: [place] [address] PATHOLOGIST PAINT SPRAY TENDER MARYLU LINARES M.D. Performed By: #### C RP, CK, CREAT, CBC, ADDONUAPLUS, ESR #### [facility] [address] [place] [address] #### TERESA, C3, C4 #### [facility] , Complement C3on 12-19-2020 Complement C3 125 mg/dL Normal 82-167 [facility] Comment on above: Result Comment: Perf ormed at: [facility] [address] [id number] Hearing Aid Repairer: Rickie Hancock PhD, Phone: [phone] Performed By: #### C RP, CK, CREAT, CBC, ADDONUAPLUS, ESR #### [address] #### TERESA, C3, C4 #### [facility] , Complement C4on 12-19-2020 Complement C4 21 mg/dL Normal 12-38 [facility] Comment on above: Result Comment: PERF ORMED BY: [place] [address] PATHOLOGIST PAINT SPRAY TENDER MARYLU LINARES M.D. Performed By: #### C RP, CK, CREAT, CBC, ADDONUAPLUS, ESR #### [address] #### TERESA, C3, C4 #### [facility] , Complete Blood Count Auto Di ffon 12-19-2020 Basophils (Bld) [#/Vol] 0.0 10*3/uL Normal 0.0-0.2 [facility] Comment on above: Performed By: #### C RP, CK, CREAT, CBC, ADDONUAPLUS, ESR #### [address] #### TERESA, C3, C4 #### [facility] , Basophils/100 WBC (Bld) 0.8 % Normal . [facility] Comment on above: Performed By: #### C RP, CK, CREAT, CBC, ADDONUAPLUS, ESR #### [address] #### TERESA, C3, C4 #### [facility] , Eosinophils (Bld) [#/Vol] 0.0 10*3/uL Normal 0.0-0.45 [facility] Comment on above: Performed By: #### C RP, CK, CREAT, CBC, ADDONUAPLUS, ESR #### [address] #### TERESA, C3, C4 #### [facility] , Eosinophils/100 WBC (Bld) 0.8 % Normal . [facility] Comment on above: Performed By: #### C RP, CK, CREAT, CBC, ADDONUAPLUS, ESR #### [address] #### TERESA, C3, C4 #### [facility] , Erythrocyte distribution width (RBC) [Ratio] 12.9 % Normal 11.9-15.3 [facility] Comment on above: Performed By: #### C RP, CK, CREAT, CBC, ADDONUAPLUS, ESR #### [place] [address] [place] #### TERESA, C3, C4 #### [facility] , Hematocrit (Bld) [Volume fraction] 41.5 % Normal 34.0-46.4 [facility] Comment on above: Performed By: #### C RP, CK, CREAT, CBC, ADDONUAPLUS, ESR #### [address] #### TERESA, C3, C4 #### [facility] , Hemoglobin (Bld) [Mass/Vol] 14.1 g/dL Normal 11.8-15.4 [facility] Comment on above: Performed By: #### C RP, CK, CREAT, CBC, ADDONUAPLUS, ESR #### [place] [address] [place] #### TERESA, C3, C4 #### [facility] , Lymphocytes (Bld) [#/Vol] 2.3 10*3/uL Normal 1.00-4.8 [facility] Comment on above: Performed By: #### C RP, CK, CREAT, CBC, ADDONUAPLUS, ESR #### [address] #### TERESA, C3, C4 #### [facility] , Lymphocytes/100 WBC (Bld) 39.2 % Normal . [facility] Comment on above: Performed By: #### C RP, CK, CREAT, CBC, ADDONUAPLUS, ESR #### [place] [address] [place] #### TERESA, C3, C4 #### [facility] , MCH (RBC) [Entitic mass] 32.2 pg Normal 24.7-34.3 [facility] Comment on above: Performed By: #### C RP, CK, CREAT, CBC, ADDONUAPLUS, ESR #### [place] [address] [place] #### TERESA, C3, C4 #### [facility] , MCV (RBC) [Entitic vol] 95.2 fL Normal 80-100 [facility] Comment on above: Performed By: #### C RP, CK, CREAT, CBC, ADDONUAPLUS, ESR #### [place] [address] [place] #### TERESA, C3, C4 #### [facility] , Mean Corpuscular HGB Conc 33.9 g/dL Normal 32.0-35.0 [facility] Comment on above: Performed By: #### C RP, CK, CREAT, CBC, ADDONUAPLUS, ESR #### [address] #### TERESA, C3, C4 #### [facility] , Monocytes (Bld) [#/Vol] 0.4 10*3/uL Normal 0.0-0.8 [facility] Comment on above: Performed By: #### C RP, CK, CREAT, CBC, ADDONUAPLUS, ESR #### [address] #### TERESA, C3, C4 #### [facility] , Monocytes/100 WBC (Bld) 6.8 % Normal . [facility] Comment on above: Performed By: #### C RP, CK, CREAT, CBC, ADDONUAPLUS, ESR #### [address] #### TERESA, C3, C4 #### [facility] , Neutrophils (Bld) [#/Vol] 3.1 10*3/uL Normal 1.8-7.7 [facility] Comment on above: Performed By: #### C RP, CK, CREAT, CBC, ADDONUAPLUS, ESR #### [place] [address] [place] #### TERESA, C3, C4 #### [facility] , Neutrophils/100 WBC (Bld) 52.4 % Normal . [facility] Comment on above: Performed By: #### C RP, CK, CREAT, CBC, ADDONUAPLUS, ESR #### [place] [address] [place] #### TERESA, C3, C4 #### [facility] , Nucleated RBC/100 WBC (Bld) [Ratio] 0.0 % Normal 0-0.5 [facility] Comment on above: Performed By: #### C RP, CK, CREAT, CBC, ADDONUAPLUS, ESR #### [address] #### TERESA, C3, C4 #### [facility] , Platelet mean volume (Bld) [Entitic vol] 8.4 fL Normal 6.3-10.7 [facility] Comment on above: Performed By: #### C RP, CK, CREAT, CBC, ADDONUAPLUS, ESR #### [address] #### TERESA, C3, C4 #### [facility] , Platelets (Bld) [#/Vol] 259 10*3/uL Normal 150-450 [facility] Comment on above: Performed By: #### C RP, CK, CREAT, CBC, ADDONUAPLUS, ESR #### [address] #### TERESA, C3, C4 #### [facility] , RBC (Bld) [#/Vol] 4.36 10*6/uL Normal 3.60-5.00 [facility] Comment on above: Performed By: #### C RP, CK, CREAT, CBC, ADDONUAPLUS, ESR #### [place] [address] [place] #### TERESA, C3, C4 #### [facility] , WBC (Bld) [#/Vol] 5.9 10*3/uL Normal 4.5-11.0 [facility] Comment on above: Performed By: #### C RP, CK, CREAT, CBC, ADDONUAPLUS, ESR #### [place] [address] [place] #### TERESA, C3, C4 #### [facility] , Creatine Kinaseon 12-19-2020 CK [Catalytic activity/Vol] 79 U/L Normal 22-269 [facility] Comment on above: Result Comment: PERF ORMED BY: [place] [address] PATHOLOGIST PAINT SPRAY TENDER MARYLU LINARES M.D. Performed By: #### C RP, CK, CREAT, CBC, ADDONUAPLUS, ESR #### [address] #### TERESA, C3, C4 #### [facility] , Creatinineon 12-19-2020 Creatinine [Mass/Vol] 0.82 mg/dL Normal 0.44-1.03 [facility] Comment on above: Performed By: #### C RP, CK, CREAT, CBC, ADDONUAPLUS, ESR #### [address] #### TERESA, C3, C4 #### [facility] , Estimated GFR ( Bebo > 60 [facility] Comment on above: Result Comment: GFR estimated reference range: According to KDOQI guidelines, <60 ml/min/1.73m2 is sufficient to diagnose a patient with chronic kidney disease. Performed By: #### C RP, CK, CREAT, CBC, ADDONUAPLUS, ESR #### [address] #### TERESA, C3, C4 #### [facility] , Estimated GFR (Non- Am > 60 [facility] Comment on above: Performed By: #### C RP, CK, CREAT, CBC, ADDONUAPLUS, ESR #### [place] [address] [place] #### TERESA, C3, C4 #### [facility] , Dipstick and Microscopicon 0 12-19-2020 Appearance (U) Clear Normal Clear [facility] Comment on above: Order Comment: Name Collection Type:: Clean-Voided Midstream Performed By: #### C RP, CK, CREAT, CBC, ADDONUAPLUS, ESR #### [facility] [address] [place] [address] #### TERESA, C3, C4 #### [facility] , Bacteria,Urine None Seen Normal None Seen [facility] Comment on above: Order Comment: Name Collection Type:: Clean-Voided Midstream Performed By: #### C RP, CK, CREAT, CBC, ADDONUAPLUS, ESR #### [facility] [address] [place] [address] #### TERESA, C3, C4 #### [facility] , Bilirubin,Urine Negative Normal Negative [facility] Comment on above: Order Comment: Name Collection Type:: Clean-Voided Midstream Performed By: #### C RP, CK, CREAT, CBC, ADDONUAPLUS, ESR #### [address] #### TERESA, C3, C4 #### [facility] , Color (U) Yellow Normal Yellow [facility] Comment on above: Order Comment: Name Collection Type:: Clean-Voided Midstream Performed By: #### C RP, CK, CREAT, CBC, ADDONUAPLUS, ESR #### [address] #### TERESA, C3, C4 #### [facility] , Glucose Ql (U) Normal Normal Normal [facility] Comment on above: Order Comment: Name Collection Type:: Clean-Voided Midstream Performed By: #### C RP, CK, CREAT, CBC, ADDONUAPLUS, ESR #### [facility] [address] [place] [address] #### TERESA, C3, C4 #### [facility] , Hyaline Casts,Urine 0-8 Normal 0-8 [facility] Comment on above: Order Comment: Name Collection Type:: Clean-Voided Midstream Result Comment: PERF ORMED BY: [place] [address] PATHOLOGIST PAINT SPRAY TENDER MARYLU LINARES M.D. Performed By: #### C RP, CK, CREAT, CBC, ADDONUAPLUS, ESR #### [address] #### TERESA, C3, C4 #### [facility] , Ketones Ql (U) Negative Normal Negative [facility] Comment on above: Order Comment: Name Collection Type:: Clean-Voided Midstream Performed By: #### C RP, CK, CREAT, CBC, ADDONUAPLUS, ESR #### [address] #### TERESA, C3, C4 #### [facility] , Leukocyte esterase Test strip Ql (U) 1+ High Negative [facility] Comment on above: Order Comment: Name Collection Type:: Clean-Voided Midstream Performed By: #### C RP, CK, CREAT, CBC, ADDONUAPLUS, ESR #### [address] #### TERESA, C3, C4 #### [facility] , Nitrite,Urine Negative Normal Negative [facility] Comment on above: Order Comment: Name Collection Type:: Clean-Voided Midstream Performed By: #### C RP, CK, CREAT, CBC, ADDONUAPLUS, ESR #### [address] #### TERESA, C3, C4 #### [facility] , Occult Blood,Urine Negative Normal Negative [facility] Comment on above: Order Comment: Name Collection Type:: Clean-Voided Midstream Performed By: #### C RP, CK, CREAT, CBC, ADDONUAPLUS, ESR #### [address] #### TERESA, C3, C4 #### [facility] , pH (U) 5.5 [pH] Normal 5.0-9.0 [facility] Comment on above: Order Comment: Name Collection Type:: Clean-Voided Midstream Performed By: #### C RP, CK, CREAT, CBC, ADDONUAPLUS, ESR #### [address] #### TERESA, C3, C4 #### [facility] , Protein,Urine Negative Normal Negative [facility] Comment on above: Order Comment: Name Collection Type:: Clean-Voided Midstream Performed By: #### C RP, CK, CREAT, CBC, ADDONUAPLUS, ESR #### [address] #### TERESA, C3, C4 #### [facility] , RBC,Urine 1-2 Normal 0-4 [facility] Comment on above: Order Comment: Name Collection Type:: Clean-Voided Midstream Performed By: #### C RP, CK, CREAT, CBC, ADDONUAPLUS, ESR #### [address] #### TERESA, C3, C4 #### [facility] , Specificy [place],Urine 1.024 Normal 1.001-1.030 [facility] Comment on above: Order Comment: Name Collection Type:: Clean-Voided Midstream Performed By: #### C RP, CK, CREAT, CBC, ADDONUAPLUS, ESR #### [address] #### TERESA, C3, C4 #### [facility] , Squamous Epithelial Cell,Urine 0-1 Normal 0-2 [facility] Comment on above: Order Comment: Name Collection Type:: Clean-Voided Midstream Performed By: #### C RP, CK, CREAT, CBC, ADDONUAPLUS, ESR #### [address] #### TERESA, C3, C4 #### [facility] , Urobilinogen,Urine Normal Normal Normal [facility] Comment on above: Order Comment: Name Collection Type:: Clean-Voided Midstream Performed By: #### C RP, CK, CREAT, CBC, ADDONUAPLUS, ESR #### [facility] [address] [place] [address] #### TERESA, C3, C4 #### [facility] , WBC,Urine 3-4 Normal 0-4 [facility] Comment on above: Order Comment: Name Collection Type:: Clean-Voided Midstream Performed By: #### C RP, CK, CREAT, CBC, ADDONUAPLUS, ESR #### [facility] [address] [place] [address] #### TERESA, C3, C4 #### [facility] , Erythrocyte Sedimentation Ra price 12-19-2020 ESR (Bld) [Velocity] 8 mm/h Normal 0-29 [facility] Comment on above: Result Comment: PERF ORMED BY: [place] [address] PATHOLOGIST PAINT SPRAY TENDER MARYLU LINARES M.D. Performed By: #### C RP, CK, CREAT, CBC, ADDONUAPLUS, ESR #### [address] #### TERESA, C3, C4 #### [facility] , Vital Signs Date Time Vital Sign Value Performing Clinician Faci lity 07-01-2023 16:04-0400 Body temperature 97.2 [degF] CHAD Villegas MD Work Phone: [facility] 07-01-2023 16:04-0400 Body weight 78.02 kg CHAD Villegas MD Work Phone: [facility] 07-01-2023 16:04-0400 Diastolic blood pressure 72 mm[Hg] CHAD Villegas MD Work Phone: [facility] 07-01-2023 16:04-0400 Heart rate 64 /min CHAD Villegas MD Work Phone: [facility] 07-01-2023 16:04-0400 Respiratory rate 16 /min CHAD Villegas MD Work Phone: [facility] 07-01-2023 16:04-0400 SaO2% (BldA) [Mass fraction] 99 % CHAD Villegas MD Work Phone: [facility] 07-01-2023 16:04-0400 Systolic blood pressure 104 mm[Hg] CHAD Villegas MD Work Phone: [facility] 07-01-2022 15:52-0400 Body temperature 96.91 [degF] CHAD Villegas MD Work Phone: [facility] 07-01-2022 15:52-0400 Body weight 81.65 kg CHAD Villegas MD Work Phone: [facility] 07-01-2022 15:52-0400 Diastolic blood pressure 71 mm[Hg] CHAD Villegas MD Work Phone: [facility] 07-01-2022 15:52-0400 Heart rate 60 /min CHAD Villegas MD Work Phone: [facility] 07-01-2022 15:52-0400 Respiratory rate 16 /min CHAD Villegas MD Work Phone: [facility] 07-01-2022 15:52-0400 SaO2% (BldA) [Mass fraction] 96 % CHAD Villegas MD Work Phone: [facility] 07-01-2022 15:52-0400 Systolic blood pressure 124 mm[Hg] CHAD Villegas MD Work Phone: [facility] Encounters Encounter Date Encounter Type Care Provider Facility Start: 10-03-2023 End: 10-04-2023 ambulatory SELF REFERRAL Facility[place] Start: 07-01-2023 End: 07-02-2023 ambulatory Patience VILLEGAS Facility:[facility] Start: 07-01-2023 End: 07-01-2023 Patient encounter procedure Patience Villegas MD Work Phone: [facility] Comment on above: History of thyroid c ancer (Primary Dx) Start: 06-24-2023 End: 06-24-2023 ambulatory Patience VILLEGAS Facility:[facility] Start: 06-18-2023 Telephone encounter Patience Villegas MD Work Phone: Radiation Oncology Comment on above: Orders Start: 05-20-2023 End: 05-21-2023 ambulatory Naomi Macario Lucio Facility[place] Start: 05-20-2023 End: 05-20-2023 Patient encounter procedure Naomi Macario Lucio [facility] Start: 04-23-2023 End: 04-24-2023 ambulatory Naomi Macario Lucio Facility[place] Start: 04-23-2023 End: 04-23-2023 Lab Drop off Naomi Lucio [facility] Start: 09-13-2022 End: 09-13-2022 Patient encounter procedure Naomi Lucio [facility] Start: 08-02-2022 End: 08-03-[address] ULISES SZYMANSKI Facility: Start: 08-01-2022 End: 08-02-[address] ULISES [...] 04-16-2022 End: 04-16-2022 Patient encounter procedure Naomi Lucio [facility] Start: 02-19-2022 End: 02-19-2022 Patient encounter procedure Naomi Lucio [facility] Start: 09-21-2021 End: 09-22-[address] [...] of thyroid cancer Expected: 06/29/2024, Expires: 08/29/2024 [facility] Work Phone: Comment on above: Expected: 06/29/2024 , Expires: 08/29/2024 Start: 06-29-2024 End: 08-29-2024 Thyrotropin [Units/volume] in Serum or Plasma TSH BLD Lab Routine History of thyroid cancer Expected: 06/29/2024, Expires: 08/29/2024 [facility] Work Phone: Comment on above: Expected: 06/29/2024 , Expires: 08/29/2024 Start: 06-29-2024 End: 08-29-2024 Thyroxine (T4) [Mass/volume] in Serum or Plasma T4/THYROXINE BLOOD Lab Routine History of thyroid cancer Expected: 06/29/2024, Expires: 08/29/2024 [facility] Work Phone: Comment on above: Expected: 06/29/2024 , Expires: 08/29/2024 Start: 07-01-2023 Adult depression screening assessment DEPRESSION SCREENING [facility] Start: 06-24-2023 End: 08-24-2023 Thyroglobulin and Thyrogobulin Ab panel - Serum or Plasma THYROGLOBULIN, SERUM WITH REFLEX TO IA OR LC-MS/MS Lab Routine History of thyroid cancer Expected: 06/24/2023, Expires: 08/24/2023 [facility] Work Phone: Comment on above: Expected: 06/24/2023 , Expires: 08/24/2023 Start: 06-24-2023 End: 08-24-2023 Thyrotropin [Units/volume] in Serum or Plasma TSH BLD Lab Routine History of thyroid cancer Expected: 06/24/2023, Expires: 08/24/2023 [facility] Work Phone: Comment on above: Expected: 06/24/2023 , Expires: 08/24/2023 Start: 06-24-2023 End: 08-24-2023 Thyroxine (T4) [Mass/volume] in Serum or Plasma T4/THYROXINE BLOOD Lab Routine History of thyroid cancer Expected: 06/24/2023, Expires: 08/24/2023 [facility] Work Phone: Comment on above: Expected: 06/24/2023 , Expires: 08/24/2023 Start: 06-13-2023 Influenza vaccination C [facility] Start: 10-13-2022 DEPRESSION ASSESSMENT DEPRESSION ASS ESSMENT [facility] Start: 07-01-2022 End: 08-31-2022 Thyroglobulin Ab [Units/volume] in Serum or Plasma THYROGLOBULIN AB Lab Routine History of thyroid cancer Expected: 07/01/2022, Expires: 08/31/2022 [facility] Work Phone: Comment on above: Expected: 07/01/2022 , Expires: 08/31/2022 Start: 07-01-2022 End: 08-31-2022 Thyroglobulin and Thyrogobulin Ab panel - Serum or Plasma THYROGLOBULIN BLD Lab Routine History of thyroid cancer Expected: 07/01/2022, Expires: 08/31/2022 [facility] Work Phone: Comment on above: Expected: 07/01/2022 , Expires: 08/31/2022 Start: 07-01-2022 End: 08-31-2022 Thyrotropin [Units/volume] in Serum or Plasma TSH BLD Lab Routine History of thyroid cancer Expected: 07/01/2022, Expires: 08/31/2022 [facility] Work Phone: Comment on above: Expected: 07/01/2022 , Expires: 08/31/2022 Start: 07-01-2022 End: 08-31-2022 Thyroxine (T4) [Mass/volume] in Serum or Plasma T4/THYROXINE BLOOD Lab Routine History of thyroid cancer Expected: 07/01/2022, Expires: 08/31/2022 [facility] Work Phone: Comment on above: Expected: 07/01/2022 , Expires: 08/31/2022 Start: 06-21-2022 End: 08-21-2022 Thyroglobulin and Thyrogobulin Ab panel - Serum or Plasma [facility] Work Phone: Comment on above: Expected: 06/21/2022 , Expires: 08/21/2022 Start: 06-21-2022 End: 08-21-2022 Thyrotropin [Units/volume] in Serum or Plasma [facility] Work Phone: Comment on above: Expected: 06/21/2022 , Expires: 08/21/2022 Start: 06-21-2022 End: 08-21-2022 Thyroxine (T4) [Mass/volume] in Serum or Plasma [facility] Work Phone: Comment on above: Expected: 06/21/2022 , Expires: 08/21/2022 Start: 06-20-2022 Adult depression screening assessment DEPRESSION SCREENING [facility] Start: 06-13-2022 Influenza vaccination INFLUENZA (#1) [facility] Start: 03-08-2022 COVID-19 VACCINE (4 - Booster for Pfizer series) COVID-19 VACCINE (4 - Booster for Pfizer series) [facility] Start: 01-03-2022 COVID-19 VACCINE (4 - Pfizer series) COVID-19 VACCINE (4 - Pfizer series) [facility] Start: 2010 SHINGRIX VACCINE (1 of 2) SHINGRIX VACCINE (1 of 2) [facility] Start: 2005 COLOGUARD (FIT-DNA) COLOGUARD (FIT-D NA) [facility] Start: 2005 Colonoscopy COLONOSCOPY [facility] Start: 2005 COLORECTAL CANCER SCREENING COLORECTAL CANCER SCREENING [facility] Start: [address] COLONOGRAPHY [facility] Start: 2005 DIABETES SCREEN DIABETES SCREEN [facility] Start: 2005 Diabetes Screening Diabetes Screenin g [facility] Start: 2005 FECAL OCCULT BLOOD FECAL OCCULT BLOO D [facility] Start: 2005 Lipid 1996 panel - S jass or Plasma Lipid Screening [facility] Start: 2005 LIPID SCREEN [facility]EN [facility] [place] Start: 2005 SIGMOIDOSCOPY SIGMOIDOSCOPY [facility] Start: 2000 Mammography [facility] Start: 1990 HPV TESTING HPV TESTING [facility] Start: 1981 PAP TESTING PAP TESTING [facility] Start: 1979 Urine microalbumin profile [facility] Start: 1978 HEPATITIS C SCREENING HEPATITIS C SC REENING [facility] Start: 1978 HIV SCREENING HIV SCREENING [facility] Immunizations Immunization Date Immunization Notes Care Provider Neo ornelas 07-14-2022 influenza virus vacc ine, unspecified formulation NA Bakari [place] Work Phone: [facility] Payers Date Payer Category Payer Unknown [id number] 1960 Unknown [id number] 1960 Unknown [id number] 2.16.84 [id number] 1960 Unknown [id number] 2.16.84 [id number] 1960 Unknown [id number] 2.16.84 [id number] 1960 Unknown [id number] 2.16.8 [id number] 1960 Unknown [id number] 2.16.8 [id number] 1960 Unknown [id number] 2.16.8 [id number] 1959 Self-pay [id number] 1959 Unknown [id number] Unknown [id number] [id number] Social History Date Type Detail Facility Tobacco smoking status Never smoker [facility] Start: 07-01-2022 End: 11-08-2022 Sex Assigned At Female [facility] Tobacco smoking status No Smokin g Status Entered [facility] Start: 05-19-2018 End: 07-01-2022 Tobacco smoking status VTIS Never smoked tobacco [facility] Start: 05-19-2018 End: 07-01-2022 Tobacco use and exposure Smokeless tobacco non-user [facility] Start: 05-18-2019 End: 07-01-2023 Alcohol intake Not Asked [facility] Start: 1960 Sex Assigned At Not on file [facility] Start: 06-11-2022 End: 07-01-2022 Exposure to SARS-CoV-2 (event) Not sure [facility] Tobacco smoking status No Smokin g Status Entered [facility] Start: 07-01-2022 End: 11-08-2022 History of Social function [facility] Adult Depression Screening Assessment 0 [facility] Clinical Notes 06-21-2022 to 07-01-2023 Patience Villegas MD - 07/01/2023 4:00 PM EDTTelephone Encounter - Kati Nolen LPN - 06/18/2023 9:42 AM EDTG Marbin Villegas MD - 07/01/2022 3:52 PM EDTRadiology Note Date & Type Note Facility 07-01-2023 Note HNO ID: [id number] Author: Patience Villegas MD Service: ? Author [...] as active information included in the EMR. [facility] 07-01-2023 History of Presen t illness Narrative [...] in the EMR. documented in this encounter [facility] 06-18-2023 Miscellaneous Notes Please sign pended lab orders for upcoming yearly follow up. Kati Nolen LPN documented in this encounter [facility] 04-23-2023 Evaluation + Plan note Diagnostic Tests PendingPAP [id number] 04/23/23 [facility] 07-01-2022 History of Presen t illness [...] in the EMR. documented in this encounter [facility] 06-25-2022 Miscellaneous Notes R/s appointment to that date and time. Pt was contacted due to TG not resulted yet. She would like to reschedule to next week to have all results at visit. PSS- pt needs 4pm appt. Please move on epic from today to Sunday 07/01 at 4pm. Thank you Janie Sellers RN documented in this encounter [facility] 06-21-2022 Miscellaneous Notes Please sign orders for today. Janie Sellers RN documented in this encounter [facility] Evaluation + Plan note No data available for this section [facility] Evaluation + Plan note Future Appointments Appointment Date:08/03/2022 07:15:00 AM Scheduled Provider: Location:.MAMMOGRAM Appointment Type:MA Screen (FT) Future Scheduled TestsMA Mamm Screen w/CAD if perf and 3D Kehinde 08/03/22 [facility] Evaluation note Diagnosis History of thyroid cancer- Primary Personal history of malignant neoplasm of thyroid documented in this encounter [facility] note* Diagnosis History of thyroid cancer- Primary Personal history of malignant neoplasm of thyroid documented in this encounter [facility] note* Diagnosis History of thyroid cancer- Primary Personal history of malignant neoplasm of thyroid documented in this encounter [facility] Discharge instructions No data available for this section [facility] data available for this section [facility] Summary Purpose Family History No Family History Records FoundNo Family History Records FoundNo Family History Records FoundNo Family History Records Found Advance Directives No Advanced Directives Records FoundNo Advanced Directives Records FoundNo Advanced Directives Records FoundNo Advanced Directives Records Found Additional Source Comments INFORMATION SOURCE (unrecogn ized section and content) DATE CREATED AUTHOR 10/01/2021 [facility] DATE CREATED AUTHOR AUTHOR'S ORGANIZ ATION 08/08/2022 [facility] DATE CREATED AUTHOR AUTHOR'S ORGANIZ ATION 07/03/2023 [facility] DATE CREATED AUTHOR AUTHOR'S ORGANIZ ATION 03/06/2024 [facility] Care Team (unrecognized sect ion and content) Clinical Trainer Relationship Specialty Start Date End Date Ulises Szymanski MD PCP - General Family Practice 01/29/12 Clinical Trainer Relationship Specialty Start Date End Date Ulises Szymanski MD PCP - General Family Practice 01/29/12 Clinical Trainer Relationship Specialty Start Date End Date Ulises Szymanski MD PCP - General Family Medicine 01/29/12 Clinical Trainer Relationship Specialty Start Date End Date Ulises Szymanski MD PCP - General Family Medicine 01/29/12 Source Comments (unrecognize d section and content) In the event this informatio n is protected by the Federal Confidentiality of Alcohol and Drug Abuse Patient Records regulations: The Federal rules restrict any use of the information to criminally investigate or prosecute any alcohol or drug abuse patient.[facility] event this information is protected by the Federal Confidentiality of Alcohol and Drug Abuse Patient Records regulations: The Federal rules restrict any use of the information to criminally investigate or prosecute any alcohol or drug abuse patient.[facility] the event this information is protected by the Federal Confidentiality of Alcohol and Drug Abuse Patient Records regulations: The Federal rules restrict any use of the information to criminally investigate or prosecute any alcohol or drug abuse patient.[facility] the event this information is protected by the Federal Confidentiality of Alcohol and Drug Abuse Patient Records regulations: The Federal rules restrict any use of the information to criminally investigate or prosecute any alcohol or drug abuse patient.[facility] event this information is protected by the Federal Confidentiality of Alcohol and Drug Abuse Patient Records regulations: The Federal rules restrict any use of the information to criminally investigate or prosecute any alcohol or drug abuse patient.[facility] Reason for Visit (unrecogniz ed section and [...] BE BASED ON THE PRIMARY CLINICAL RECORDS. [facility] provides no warranty or guarantee of the accuracy or completeness of information in this document.
--- NOTE | 2024-04-02 07:23 | CT_ITS ---
[address] [address] Patient Name: IRAJ MOFFETT MRN: [id number] date: 1960 Sex: F Assigned Patient Location: LAB Current Patient Location: Accession/Order Number: [id number] Exam Date: 04/02/2024 08:15 Report Date: 04/05/2024 08:55 At the request of: ULISES BACK Procedure: CT abdomen pelvis w con EXAMINATION: CT abdomen pelvis w con HISTORY: Abdominal Pain COMPARISON: 12/03/2021 TECHNIQUE: CT images were created with IV contrast. Axial, Coronal, and Sagittal images. Dose reduction techniques were achieved by using automated exposure control and/or adjustment of mA and/or kV according to patient size and/or use of iterative reconstruction technique. FINDINGS: LUNG BASES: No visible pulmonary or pleural disease. LIVER: No enlargement, atrophy, abnormal density, or significant focal lesion. BILIARY: No visible dilatation or calcification. PANCREAS: No lesion, fluid collection, ductal dilatation, or atrophy. SPLEEN: No enlargement or focal lesion. ADRENALS: No mass or enlargement. KIDNEYS: No mass, obstruction, or calcification. BOWEL/MESENTERY: No visible mass, obstruction, or bowel wall thickening. AORTA/VASCULAR: No aortic aneurysm or dissection. Mild calcific atherosclerosis RETROPERITONEUM: No mass or adenopathy. LYMPH NODES: No adenopathy. URINARY BLADDER: No visible focal wall thickening, lesion, or calculus. PELVIC ORGANS: No visible mass. Pelvic organs appropriate for patient age. ABDOMINAL WALL: No mass or hernia. BONES: No bony lesion or fracture. OTHER: Negative. CT/CT abdomen pelvis w con IMPRESSION: No acute intraperitoneal abnormality Electronically authenticated by: GIAN LEIVA Date: 04/05/2024 08:55
[2024-04-02 07:30] LABS: Estimated GFR (African America >60 (>=60); Estimated GFR (Non-African Ame >60 (>=60)
== END 2024-04-02 06:50 | disposition home or self-care (01) ==
LOC: LAB 06:49
PROVIDERS: PCP Family Medicine; Visit Provider Family Medicine
DX: R10.9 Unspecified abdominal pain (principal)
CPT/HCPCS: 36415; 74177; 82565; Q9967

== ENCOUNTER 2025-01-18 02:58 | Emergency (ER) | payer OTHER, SELFPAY ==
[2025-01-18 03:02] VITALS: BP 144/86; PULSE 73; TEMP 37; O2SAT 98; BMI 23.5
--- OUTSIDE RECORDS SUMMARY | 2025-01-18 03:16 | XMS_ITS | CCD ---
Author Organization [facility] Care Team Providers Care Real Estate Asset Manager Name Role Phone Ulises Szymanski Primary Care Physician Ulises Szymanski MD Primary Care Provider [phone] Ulises Szymanski MD Primary Care Provider [phone] NAZANIN, DR MONTGOMERY Consulting Unavailable HOY, DR MONTGOMERY Primary Care Unavailable HOY, DR MONTGOMERY Admitting Unavailable HOY, DR MONTGOMERY Attending Unavailable NAZANIN, DR MONTGOMERY Primary Care Unavailable HOY, DR MONTGOMERY Admitting Unavailable HOY, DR MONTGOMERY Attending Unavailable HOY, DR MONTGOMERY Consulting Unavailable HOY, DR MONTGOMERY Primary Care Unavailable HOY, DR MONTGOMERY Admitting Unavailable HOY, DR MONTGOMERY Attending Unavailable ZIEBER, DR FABY Vargas Consulting Unavailable NAZANIN, DR MONTGOMERY Consulting Unavailable NAZANIN, DR MONTGOMERY Primary Care Unavailable HOY, DR MONTGOMERY Admitting Unavailable HOY, DR MONTGOMERY Attending Unavailable WEST, DR GIAN Barnes Consulting Unavailable NAZANIN, DR MONTGOMERY Consulting Unavailable NAZANIN, DR MONTGOMERY Primary Care Unavailable CHARMAINEY, DR MONTGOMERY Admitting Unavailable HOY, DR MONTGOMERY Attending Unavailable WEST, DR GIAN Barnes Consulting Unavailable Ulises Szymanski MD Primary Care Provider [phone] Ulises Szymanski MD Primary Care Provider [phone] Patience VILLEGAS Attending Unavailable Patience VILLEGAS Referring Unavailable ULISES SZYMANSKI Primary Care Unavailable Patience VILLEGAS Referring Unavailable ULISES SZYMANSKI Primary Care Unavailable Flakita Lucioa Macario Admitting Unavailable Naomi Lucio Attending Unavailable KhadijahFlakita deana J Referring Unavailable REFERRAL, SELF Admitting Unavailable REFERRAL, SELF Attending Unavailable Apodacaesa J Consulting Unavailable Khadijah Naomi J Referring Unavailable Khadijah, AUTO BODY REPAIR TECHNICIAN Naomi J Consulting Unavailable Naomi Lucio Consulting Unavailable Naomi Lucio Referring Unavailable Naomi Lucio Attending Naomi Solo Admitting Unavailable Naomi Lucio Admitting Unavailable Naomi Lucio Attending Unavailable Naomi Lucio Referring Unavailable Al Staley Attending Unavailable Al Staley Attending Unavailable Al Staley Admitting Unavailable Al Staley Attending Unavailable Al Staley Referring Unavailable Medications Current Medications Medication Drug Class(es) Dates Sig (Normalized) Sig (Original) Acetaminophen (1 source) Start: 04-13-2012 take 2 tablets by mouth once daily at bedtime Tylenol PM 500 mg-25 mg Tab 2 tab(s), Oral, Once a day (at bedtime), Refill(s) 0, Pain Start Date: 04/13/12 Status: Ordered acetaminophen 500 mg / diphenhydrAMINE citrate 38 mg oral tablet (17 sources) Histamine-1 Receptor Antagonist Start: 04-13-2012 take 2 tablets by mouth once daily at bedtime Tylenol PM 500 mg-25 mg Tab 2 tab(s), Oral, Once a day (at bedtime), Refill(s) 0, Pain Start Date: 04/13/12 Status: Ordered diphenhydrAMINE- Acetaminophen (TYLENOL PM EXTRA STRENGTH) 25-500 mg tab Take by mouth. Active Comment on above: Take by mouth. alendronic acid 70 mg oral tablet (12 sources) Bisphosphonate Start: 4 take 1 mg by mouth every week Fosamax 70 mg Tab mg tab(s), Oral, qWeek, Refills(s) 0 Start Date: 07/19/24 Status: Ordered Comment on above: Take 70 mg by mouth one time a week. In AM with cup of water on empty stomach. Nothing else by mouth and stay upright for 30 min. aspirin 81 mg delayed release oral tablet (11 sources) Platelet Aggregation Inhibitor, Nonsteroidal Anti-inflammatory Drug Start: 4 take 1 tablet by mouth once daily aspirin 81 mg Oral EC Tab 81 mg = 1 tab(s), Oral, Daily, Refills(s) 0, Prophylaxis Start Date: 09/06/24 Status: Ordered BABY ASPIRIN ORA L Take by mouth. Active BABY ASPIRIN ORA L Take by mouth. 0 Active Comment on above: Take by mouth. cetirizine hydrochloride 10 mg oral tablet (18 sources) Histamine-1 Receptor Antagonist Start: 7 take 10 mg by mouth once daily cetirizine 10 mg, Oral, Daily, Refills(s) 0, Allergy symptoms Start Date: 09/24/17 Status: Ordered Cetirizine 10 mg cap Take by mouth. Active Comment on above: Take by mouth. Combipatch (7 sources) Estrogen Start: 09-23-2017 Combipatch 0.05-0.14 mg/ hr, Topical, q3day, Refill(s) 0, control/menstrual regulation Start Date: 09/23/17 Status: Ordered levothyroxine sodium 0.1 mg oral tablet (19 sources) l-Thyroxine Start: 09-15-2024 take 1 ug by mouth once daily Synthroid 100 mcg Tab mcg tab(s), Oral, Daily, Refills(s) 0 Start Date: 09/15/24 Status: Ordered Start: 06-10-2024 take 1 tablet by kavon th once daily levothyroxine (SYNTHROID) 100 mcg tablet Take 1 tablet by mouth once daily. 90 tablet 3 06/10/2024 Active Start: 06-17-2023 End: 06-04-2024 take 1 tablet by mouth once daily levothyroxine (SYNTHROID) 100 mcg tablet Take 1 tablet by mouth once daily. 90 tablet 3 06/17/2023 06/04/2024 Discontinued Start: 06-26-2021 End: 06-21-2022 take 1 tablet by mouth once daily levothyroxine (SYNTHROID) 100 mcg tablet Take 1 tablet by mouth once daily. 90 tablet 3 06/21/2022 Active Start: 09-23-2017 Synthroid 112 microgram, Oral, Daily, Refills(s) 0, Thyroid Start Date: 09/23/17 Status: Ordered Comment on above: Take 1 tablet by kavon th once daily. Multivitamin, Therapeutic w/ Minerals (10 sources) Start: 7 take 1 tablet by mouth once daily Multivitamin, Therapeutic w/ Minerals 1 tab(s), Oral, Daily, Refill(s) 0, Prophylaxis Start Date: 09/23/17 Status: Ordered pantoprazole 40 mg extended release oral tablet (18 sources) Proton Pump Inhibitor Start: 7 take 40 mg by mouth once daily Protonix 40 mg, Oral, Daily, Refills(s) 0, Control of stomach acid Start Date: 09/23/17 Status: Ordered Start: 09-23-2017 take 40 mg by mouth twice rin y Protonix 40 mg, Oral, BID, Refills(s) 0, Control of stomach acid Start Date: 09/23/17 Status: Ordered take 1 tablet by kavon th once daily pantoprazole DR (PROTONIX) 40 mg tablet Take 40 mg by mouth once daily. Active Comment on above: Take 40 mg by mouth once daily. Zocor (12 sources) HMG-CoA Reductase Inhibitor Start: 07-19-2024 Zocor Oral, qPM, Refills(s) 0, High cholesterol Start Date: 07/19/24 Status: Ordered Start: 07-19-2024 Zocor Oral, qP M, Refills(s) 0 Start Date: 07/19/24 Status: Ordered take 1 tablet by kavon th once daily at bedtime simvastatin (ZOCOR) 20 mg tablet Take 20 mg by mouth daily at bedtime. Active Comment on above: Take 20 mg by mouth daily at bedtime. Vitamin D (7 sources) Start: 03-12-2019 take 1 dose by mouth every month Vitamin D unknwn dose, Oral, qMonth, Refills(s) 0, Prophylaxis Start Date: 03/12/19 Status: Ordered Zinc (12 sources) Start: 07-19-2024 Zinc Refills(s) 0, Prophylaxis Start Date: 07/19/24 Status: Ordered Start: 07-19-2024 Zinc Refills(s ) 0 Start Date: 07/19/24 Status: Ordered Zinc 50 mg tab T danna by mouth. Active Zinc 50 mg tab T danna by mouth. 0 Active Comment on above: Take by mouth. Completed/Discontinued Medications Medication Drug Class(es) Dates Sig (Normalized) Sig (Original) apixaban 5 mg oral tablet (3 sources) Factor Xa Inhibitor End: 07-01-2022 apixaban (ELIQUIS) 5 mg tab(s) Take by mouth twice daily. 0 07/01/2022 Discontinued (Discontinued by another Health Care Provider) Comment on above: Take by mouth twice daily. cholecalciferol 5500 unt / vitamin k2 0.2 mg oral tablet (9 sources) Vitamin D Start: 02-09-2019 End: 07-01-2023 DOSOQUIN 5,500-200 unit-mcg tab Comment on above: Take by mouth. Problems Active Problems Problem Classification Problem Date Documented Date Episodic/Chronic Abdominal pain (8 sources) Unspecified abdominal pain; Translations: [Abdominal pain] Onset: 08-02-2022 Episodic Calculus of urinary tract (5 sources) Calculus of kidney; Translations: [CALCULUS OF KIDNEY] Onset: 08-01-2022 Episodic Cancer of thyroid (18 sources) Malignant tumor of thyroid gland; Translations: [Malignant neoplasm of thyroid gland] Onset: 05-30-2014 03-12-2019 Chronic Esophageal disorders (16 sources) Gastroesophageal reflux disease; Translations: [Gastroesophageal reflux disease without esophagitis] Onset: 07-19-2024 03-12-2019 Chronic Esophageal disorders (3 sources) Esophagitis; Translations: [Other esophagitis without bleeding] Onset: 09-15-2024 Episodic Osteoporosis (4 sources) Osteoporosis 07-19-2024 Chronic Other and unspecified benign neoplasm (6 sources) History of polyp of colon; Translations: [Personal history of colon polyps, unspecified] Onset: 07-19-2024 Episodic Other upper respiratory disease (2 sources) Difficulty talking; Translations: [Dysphonia] Onset: 07-19-2024 Episodic Other upper respiratory disease (4 sources) Hoarse 07-19-2024 Episodic Residual codes; unclassified (2 sources) Family history of malignant neoplasm of digestive organ; Translations: [Family history of malignant neoplasm of digestive organs] Onset: 07-19-2024 Episodic Residual codes; unclassified (4 sources) Family history of cancer of colon 07-19-2024 Episodic Past or Other Problems Problem Classification Problem Date Documented Da te Episodic/Chronic Cancer of thyroid (19 sources) History of malignant neoplasm of thyroid; Translations: [Personal history of malignant neoplasm of thyroid] Onset: 06-07-2015 Episodic Pulmonary heart disease (4 sources) Other pulmonary embolism without acute cor pulmonale; Translations: [OTH PULM EMBO W/O AC COR PULMONALE] Onset: 09-21-2021 Episodic Results Test Name Value Interpretation Reference Range Facility MRI Breast w/o and w/ Contra Jaja dumont 11-24-2024 MRI Breast w/o and w/ Contrast, Bilat Exam Date/Time: 05/25/2024 14:35 EDT Reason for Exam: Z12.39 Addendum SYSTEM TYPOGRAPHICAL ERROR IN THE ORIGINAL REPORT TEMPLATE. Please disregard the sentence, Dynamic Breast MR imaging was then performed with fat sat pre and post-T1 weighted images after the patient received 20 cc of MultiHance gadolinium contrast. in the TECHNIQUE paragraph. The actual contrast and dose are included in the attached exam data. Ordering Provider: Naomi Lucio FINAL REPORT Dictated: 11/24/2024 3:25 pm Clive Haskins MD Signed (Electronic Signature): 11/24/2024 3:25 pm Signed by: Clive Haskins MD Transcribed by: JAKE Technologist: LATISHA Assessment: BI-RADS Category 1-Negative Recommendation: Normal interval follow-up Addendum SYSTEM TYPOGRAPHICAL ERROR IN THE ORIGINAL REPORT TEMPLATE. Please disregard the sentence, Dynamic Breast MR imaging was then performed with fat sat pre and post-T1 weighted images after the patient received 20 cc of MultiHance gadolinium contrast. in the TECHNIQUE paragraph. The actual contrast and dose is included in the attached exam data. Ordering Provider: Naomi Lucio FINAL REPORT Dictated: 11/24/2024 3:09 pm Clive Haskins MD Signed (Electronic Signature): 11/24/2024 3:09 pm Signed by: Clive Haskins MD Transcribed by: JAKE Technologist: SB Assessment: BI-RADS Category 1-Negative Recommendation: Normal interval follow-up Report IMPRESSION: BIRADS 1 NEGATIVE, NORMAL INTERVAL FOLLOW-UP Report EXAM: MRI Breast w/o and w/ Contrast, Bilat DATE: 05/25/2024 1:33 PM CLINICAL HISTORY: Z12.39. COMPARISONS: Numerous prior studies; most recent screening mammograms 11/03/2022 and breast MRI 05/20/2023. TECHNIQUE: This study was performed on a [...] images were generated at the dedicated breast [employer] workstation FINDINGS: Scattered fibroglandular densities are present with minimal background parenchymal enhancement. There are no suspicious masses, areas of abnormal masslike enhancement, suspicious lymphadenopathy, or other findings of concern identified. CAD analysis was performed and used in the interpretation. Board Certified Radiologists. Accredited by the ACR and FDA. MAMMOGRAPHY IS VERY IMPORTANT TO YOUR HEALTH. THE CURRENT [place] AND [employer] GUIDELINES RECOMMENDS ANNUAL MAMMOGRAPHY BEGINNING AT AGE 40. THIS FACILITY UTILIZES A REMINDER SYSTEM TO ENSURE ALL PATIENTS RECEIVE REMINDER NOTIFICATIONS AT THE APPROPRIATE TIME BASED ON THE RECOMMENDATIONS OF THIS EXAM. \X09\ Ordering Provider: Naomi Lucio FINAL REPORT Dictated: 05/29/2024 1:52 pm Clive Haskins MD Signed (Electronic Signature): 05/29/2024 1:52 pm Signed by: Clive Haskins MD Transcribed by: JAKE Technologist: LATISHA Assessment: BI-RADS Category 1-Negative Recommendation: Normal interval follow-up Technical Comments [employer] Contrast amount in ml's: 7 Report last revised on 11/24/2024 15:25 EST by Clive Haskins MD [facility] [place] Mamm Screen w/CAD if perf and 3D Bilon 10-05-2024 [place] Mamm Screen w/CAD if perf and 3D [place]e Exam Date/Time: 10/04/2024 08:49 EST Reason for Exam: Z12.31 Report IMPRESSION: BIRADS 1 NEGATIVE, NORMAL INTERVAL FOLLOW-UP Follow-up: 12 MONTH RECALL Density: There are scattered areas of fibroglandular density. Vascular calcifications: Absent. EXAM: [place] Mamm Screen w/CAD if perf and 3D [place]e DATE: 10/04/2024 8:29 AM CLINICAL HISTORY: Z12.31. COMPARISONS: Screening mammograms 10/03/2023, 09/13/2022, 07/28/2021, and breast MRI 05/27/2024. TECHNIQUE: Routine full-field digital mammograms and 3D breast tomosynthesis were obtained of both breasts. FINDINGS: There are no developing densities, suspicious microcalcifications, or areas of architectural distortion identified on the current study. No significant changes are identified from the prior studies, given differences in technique and positioning. Dense Breast: No. CAD analysis was performed and used in the interpretation. Board Certified Radiologists. Accredited by the ACR and FDA. MAMMOGRAPHY IS VERY IMPORTANT TO YOUR HEALTH. THE CURRENT [employer] [employer] AND [employer] GUID[employer]INES RECOMMENDS ANNUAL MAMMOGRAPHY BEGINNING AT AGE 40. THIS FACILITY UTILIZES A REMINDER SYSTEM TO ENSURE ALL PATIENTS RECEIVE REMINDER NOTIFICATIONS AT THE APPROPRIATE TIME BASED ON THE RECOMMENDATIONS OF THIS EXAM. Report Ordering Provider: Naomi Lucio FINAL REPORT Dictated: 10/05/2024 3:02 pm Clive Haskins MD Signed (Electronic Signature): 10/05/2024 3:02 pm Signed by: Clive Haskins MD Transcribed by: JAKE Technologist: [facility] Assessment: BI-RADS Category 1-Negative Recommendation: Normal interval follow-up Normal [facility] Reminderson 09-21-2024 Reminders Reminders From: Kierra Hinds To: [facility] - Reminders/Recalls; Sent: 09/21/2024 10:13:16 EST Show up: 08/06/2034 09:37:00 EDT Subject: Ambulatory Reminder- colonoscopy 10 years Due Date/Time: 09/06/2034 09:37:00 EST Reminder/Recall Colonoscopy-09/06/24 Dr Staley-10 years Repeat colonoscopy after 10 years since grandmother has a history of colon cancer and she is a second-degree relative with colon cancer Normal [facility] Gastroenterology Office/Clin ic Noteon 09-15-2024 Gastroenterology Office/Clinic Note Gastroenterology Office/Clinic Note Chief Complaint follow up to egd/colon HPI Staff This is a 63 year old female who presents today for a follow up to EGD and Colonoscopy. symptoms have improved, bottom lip has been numb since her procedure. Last office visit w/ Dr Staley History of Present Illness Pt with hoarseness in the voice scheduled to see ENT does not have bad acid reflux on Protonix daily for 5 years hx of colon cancer in GI Assessment/Plan 1. History of colon polyps (Z86.0100: Personal history of colon polyps, unspecified) 2. Gastroesophageal reflux disease (K21.9: Gastro-esophageal reflux disease without esophagitis) 3. History of malignant neoplasm of thyroid (Z85.850: Personal history of malignant neoplasm of thyroid) 4. Voice hoarseness (R49.0: Dysphonia) 5. Family hx of colon cancer (Z80.0: Family history of malignant neoplasm of digestive organs) Continue PPI Agree with ENT evaluation Schedule upper endoscopy to evaluate GERD and hoarseness of the voice Schedule colonoscopy given history of polyps and family history of colon cancer EGD w/ Dr Staley 09/06/24 Findings 1. Z-line at 38 cm. Hiatal hernia measuring 2 cm. LA grade B esophagitis. Possible 1 tongue of salmon-colored mucosa measuring 1 cm (C0 M1) (status post biopsies) 2. Normal examined stomach 3. Normal duodenum. 4. 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 Clinical correlation is indicated. Final Diagnosis (Verified) ESOPHAGUS, BIOPSY: ??? GASTROESOPHAGEAL JUNCTION WITH MILD CHRONIC INFLAMMATION, COMPATIBLE WITH REFLUX. ??? NO INTESTINAL METAPLASIA IDENTIFIED. Colonoscopy w/ Dr Staley 09/06/24 Findings 1. Small internal hemorrhoids 2. Normal examined colon Impression and Plan Internal hemorrhoids Recommendations: Repeat colonoscopy:: In 10 years. History of Present Illness I have reviewed HPI staff note, most recent labs and imaging, I agree with the above documentation with the following additions/exceptions : Pt with some numbness in the lips Symptoms are better hoarseness is better Review of Systems PHQ Score Initial Depression Screen Score: 0 SCORE All systems reviewed, negative except as mentioned above Physical Exam Vitals & Measurements HR: 76(Peripheral) RR: 16 BP: 122/84 HT: 66 in HT: 168 cm WT: 80 kg WT: 176.37 lb BMI: 28.34 General: alert, no acute distress HEENT: atraumatic normocephalic Cardiovascular: regular rate and rhythm, normal peripheral perfusion Respiratory: Lungs CTA, respirations non labored Extremities: no deformity, no trauma Abdomen: Benign, soft, nontender nondistended Assessment/Plan 1. History of colon polyps (Z86.0100: Personal history of colon polyps, unspecified) 2. Family hx of colon cancer (Z80.0: Family history of malignant neoplasm of digestive organs) 3. Voice hoarseness (R49.0: Dysphonia) 4. Gastroesophageal reflux disease (K21.9: Gastro-esophageal reflux disease without esophagitis) 5. History of malignant neoplasm of thyroid (Z85.850: Personal history of malignant neoplasm of thyroid) 6. Reeves grade B esophagitis (K20.80: Other esophagitis without bleeding) Repeat colonoscopy after 10 years since grandmother has a history of colon cancer and she is a second-degree relative with colon cancer Continue Protonix 40 mg daily Continue to monitor lip numbness and I expect this to get better soon Follow GERD measures and diet Follow-up No qualifying data available Problem List/Past Medical History Ongoing Abdominal pain Family hx of colon cancer Gastroesophageal reflux disease History of colon polyps History of malignant neoplasm of thyroid Reeves grade B esophagitis Osteoporosis Voice hoarseness Historical No qualifying data Procedure/Surgical History Colonoscopy (09/06/2024), Esophagogastroduodenoscopy (09/06/2024), Salpingo-oophorectomy (03/12/2019), Laparoscopy with fulguration of lesion, Thyroidectomy. Medications aspirin 81 mg Oral EC Tab, 81 mg= 1 tab(s), Oral, Daily cetirizine, 10 mg, Oral, Daily Fosamax 70 mg Tab, Oral, qWeek Multivitamin, Therapeutic w/ Minerals, 1 tab(s), Oral, Daily Protonix, 40 mg, Oral, Daily Synthroid 100 mcg Tab, Oral, Daily Tylenol PM 500 mg-25 mg Tab, 2 tab(s), Oral, Once a day (at bedtime), Self Directed Zinc Zocor, Oral, qPM Allergies No Known Allergies Social History Alcohol - Denies Alcohol Use, 03/01/2019 Never., 09/15/2024 Substance Abuse - Denies Substance Abuse, 03/01/2019 Never., 09/15/2024 Tobacco - Denies Tobacco Use, 03/01/2019 Never (less than 100 in lifetime) Tobacco Use:., 09/15/2024 Never (less than 100 in lifetime) Tobacco Use:., 09/12/2024 Family History Primary malignant neoplasm of colon: Gr (more content not included)... Normal [facility] Comment on above: Result Comment: Elec tronically Signed By: Rebeka BIRMINGHAM, Al Srivastava\.br\Date and Time Signed: 09/15/24 13:54 EST Surgical Pathology Reporton 09-08-2024 Surgical Pathology Report [address] [place] [address]- Surgical Pathology Report Collected Date/Time: 09/06/2024 10:24 EST Pathologist: Richard BIRMINGHAM PhD, Franchesca Randhawa Received Date/Time: 09/06/2024 12:36 EST Rebeka BIRMINGHAM, Al Anderson. Rebeka BIRMINGHAM, Al Pradhan Surgical Pathology Report - 09/08/2024 13:44 EST - Auth (Verified) Final Diagnosis ESOPHAGUS, BIOPSY: - GASTROESOPHAGEAL JUNCTION WITH MILD CHRONIC INFLAMMATION, COMPATIBLE WITH REFLUX. - NO INTESTINAL METAPLASIA IDENTIFIED. (Electronic Signature) Franchesca Ramos MD PhD 09/08/2024 13:44 Diagnosis Comment Esophageal squamous epithelium contains occasional eosinophils (1 per high-power field), compatible with rendered diagnosis. Clinical correlation is indicated. Clinical Information Gerd, history of colon polyps Pre-Op Diagnosis: Gerd, history of colon polyps Procedure: EGD Post-Op Diagnosis: 1. Hiatal hernia 2. 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 LA grade B esophagitis Specimen(s) Received Esophagus biopsy Gross Description Received in formalin labeled with patient name, number, and esophagus biopsy are four fragments of robin/pink tissue ranging from less than 0.1 cm up to 0.3 cm in greatest dimension. Specimen is entirely submitted in one cassette. (DC) DC:[facility] Microscopic Description Microscopic examination performed unless gross only specified. Normal [facility] Comment on above: Performed By: #### [id number] #### [facility] [address] [place] [id number] Main OR Intraoperative Recor don 09-07-2024 Main OR Intraoperative Record Main OR Intraoperative Record IntraOp Document Type FT Summary Primary Physician: Al Staley MD Finalized Date/Time: 09/07/24 10:12:20 Pt. Name: MARTITA MOFFETT/Sex: 1960 Female Med Rec #: [id number] Physician: Al Staley MD Financial #: [id number] Pt. Type: O Room/Bed: / Admit/Disch: 09/06/24 09:33:36 - 09/06/24 23:59:59 Institution: Case Times FT Entry 1 Patient Times In Room 09/06/24 10:17:00 Out Room 09/06/24 10:42:00 Procedure Times Start 09/06/24 10:21:00 Stop 09/06/24 10:39:00 Anesthesia Times Start 09/06/24 10:17:00 Stop 09/06/24 10:42:00 Time at [facility] 09/06/24 10:31:00 Last Modified By: Abel Silva RN 09/06/24 10:42:18 General Comments: 1025 EGD completed MSRN 1026 Colonoscopy started MSRN 09/07/24 Chart opened to review and send charges [facility] CSFA Case Attendance FT Entry 1 Entry 2 Entry 3 Case Attendee Robert DNP, ELECTRONICS ASSEMBLER, Queen Ricardo PITT, Elizabeth Mcginnis Role Performed ELECTRONICS ASSEMBLER Talent Acquisition Sourcer - Primary Staff - Other Time In 09/06/24 10:17:00 09/06/24 10:17:00 09/06/24 10:17:00 Time Out 09/06/24 10:42:00 09/06/24 10:42:00 09/06/24 10:42:00 Procedure EGD AND COLONOSCOPY(.) EGD AND COLONOSCOPY(.) EGD AND COLONOSCOPY(.) Comments help in room Last Modified By: Ki TUBE COVERER, Radha Silva RN, Abel Silva RN, Abel Dean 09/07/24 10:11:53 09/06/24 10:42:19 09/06/24 10:42:19 Entry 4 Entry 5 Entry 6 Case Attendee Maine Bryant TUBE COVERER, Gemini Staley MD, Al Em Role Performed Scrub - Primary Staff - Other Surgeon - Primary Time In 09/06/24 10:17:00 09/06/24 10:23:00 09/06/24 10:17:00 Time Out 09/06/24 10:42:00 09/06/24 10:42:00 09/06/24 10:42:00 Procedure EGD AND COLONOSCOPY(.) EGD AND COLONOSCOPY(.) EGD AND COLONOSCOPY(.) Comments help in room Last Modified By: Abel Silva RN, RN, Morgan E Souter RN, Morgan E 09/06/24 10:42:19 09/06/24 10:42:19 09/06/24 10:42:19 Perioperative Protocols FT Pre-Care Text: Implements protective measures prior to operative or invasive procedure, confirms identity before the operative or invasive procedure, verifies operative procedure, surgical site, and laterality Entry 1 Procedure(s) EGD AND COLONOSCOPY(.) Patient Identity Birthday, ID Band Verified (select at Check, Patient least 2): Participation Consents / H and P Anesthesia Consent, Operative Site N/A Verified H&P, Surgery/Procedure Marking Verified Consent Surgical Site No Laterality Verified n/a Verified Procedure Verified Yes Correct Patient Yes Position Verified Availability Equipment, Medication Prep Dry n/a Verified (If Applicable) PreOp Antibiotic No Time Out Robert NORTON, DEYVI, Queen Susy Lowry, Abel Silva RN, Miles, Kirstyn K, Sparks, Micala E, Rebeka BIRMINGHAM, Al Srivastava Time Out Complete 09/06/24 10:18:00 Outcomes Met? Yes Last Modified By: Abel Silva RN 09/06/24 10:18:50 Post-Care Text: The patient is free from signs and symptoms of injury caused by extraneous objects Allergy Information FT Pre-Care Text: Verifies allergies Entry 1 Allergies Reviewed? Yes Allergies Reviewed Self/Patient With Outcomes Met? Yes Last Modified By: Abel Silva RN 09/06/24 10:13:38 Post-Care Text: The patient received appropriate medication(s) safely administered during the perioperative period Surgical Procedures FT Entry 1 Procedure Description Procedure EGD AND COLONOSCOPY Modifiers . Surgeon Description EGD with esophagus biopsy. Colonoscopy Primary Procedure Yes Primary Surgeon Rebeka BIRMINGHAM, Al Srivastava Start 09/06/24 10:21:00 Stop 09/06/24 10:39:00 Anesthesia Type General Surgical Service Gastroenterology Wound Class 2 - Clean-Contaminated Last Modified By: Abel Silva RN 09/06/24 10:39:27 General Case Data FT Pre-Care Text: Classifies surgical wound, implements aseptic technique, initiates traffic control Entry 1 Case Information OR ENDO 1 FT Case Level Level 2 Wound Class 2 - Clean-Contaminated Specialty Gastroenterology ASA Class 2 Preop Diagnosis GERD, History of colon Postop Same As Preop No polyps Postop Diagnosis EGD- Hiatal hernia, Outcomes Met? Yes Fundal gland polyps. Colonoscopy- Internal hemorrhoids Last Modified By: Radha Emerson CST 09/07/24 10:12:18 Post-Care Text: The patient is free from signs and symptoms of infection Skin Assessment (Pre Procedure) FT Pre-Care Text: Implements protective measures to prevent skin/ tissue injury due to thermal or mechanical sources Evaluates for signs and symptoms of physical injury to skin and tissue Entry 1 Skin Integrity Dry, Warm Skin Abnormality No Outcomes Met? Yes Last Modified By: Abel Silva RN 09/06/24 10:19:45 Post-Care Text: The patient is free from signs and symptoms of injury caused by extraneous objects Patient Positioning FT Pre-Care Text: Identifies physical alterations that require ad (more content not included)... Normal [facility] Discharge Instructionson Discharge Instructions Discharge Instructions MARTITA MOFFETT Sydnee :1960 Visit Date:09/06/2024 Inpatient Discharge Instructions Your Care Team Admitting Physician - Al Staley MD. Referring Physician - Al Staley MD. Reason for Your Visit GASTRO ESOPHAGEAL REFLUX DISEASE AND HX OF COLON POLYPS Your Diagnosis Hemorrhoids, internal Hernia, hiatal Reeves grade B esophagitis Tests Performed Pathology Tissue Exam -- Results Pending -- Please visit your patient portal for your results or contact your primary care physician. This Is Your Medications List acetaminophen-diphenhydrAMIN E (Tylenol PM 500 mg-25 mg Tab) alendronate (Fosamax 70 mg Tab) aspirin (aspirin 81 mg Oral EC Tab) cetirizine levothyroxine (Synthroid) multivitamin with minerals (Multivitamin, Therapeutic w/ Minerals) pantoprazole (Protonix) simvastatin (Zocor) zinc sulfate (Zinc) Procedure History Salpingo-oophorectomy (03/12/2019), Laparoscopy with fulguration of lesion, Thyroidectomy. Discharge Vitals Temperature (Temporal Artery) 36.3 ???C Heart Rate (Monitored) 67 Respiratory Rate 16 Blood Pressure 120/77 Height 168 cm Weight 81 kg What to do next Instructions From Your Doctor No qualifying data available. Previously Scheduled Follow-Up Appointments Friday 2:45 PM EST With: Rebeka BIRMINGHAM, Al Srivastava Where: [facility] [address] [facility] [place] [address] [place] [address]- Friday 8:00 AM EST With: Where: [facility] New Follow Up Appointments after Discharge Follow Up with Al Staley When: Where: [address] [place] [address]- [phone] Business (1) Medications What How Much When Instructions Next Dose Unchanged acetaminophen-diphenhydrAMIN E (Tylenol PM 500 mg-25 mg Tab) 2 Tablets By Mouth Once a day (at bedtime) Unchanged alendronate (Fosamax 70 mg Tab) By Mouth Every week Unchanged aspirin (aspirin 81 mg Oral EC Tab) 1 Tablets By Mouth Every day Unchanged cetirizine 10 Milligram By Mouth Every day Unchanged levothyroxine (Synthroid) 112 Microgram By Mouth Every day Unchanged multivitamin with minerals (Multivitamin, Therapeutic w/ Minerals) 1 Tablets By Mouth Every day Unchanged pantoprazole (Protonix) 40 Milligram By Mouth Every day Unchanged simvastatin (Zocor) By Mouth Once a day (in the evening) Unchanged zinc sulfate (Zinc) Test Results No qualifying data available. Allergies No Known Allergies Problems Ongoing - Any problem that you are currently receiving treatment for. Abdominal pain Family hx of colon cancer Gastroesophageal reflux disease History of colon polyps History of malignant neoplasm of thyroid Osteoporosis Voice hoarseness Education Materials Hiatal Hernia A hiatal hernia occurs when part of the stomach slides above the muscle that separates the abdomen from the chest (diaphragm). A person can be born with a hiatal hernia (congenital), or it may develop over time. In almost all cases of hiatal hernia, only the top part of the stomach pushes through the diaphragm. Many people have a hiatal hernia with no symptoms. The larger the hernia, the more likely it is that you will have symptoms. In some cases, a hiatal hernia allows stomach acid to flow back into the tube that carries food from your mouth to your stomach (esophagus). This may cause heartburn symptoms. The development of heartburn symptoms may mean that you have a condition called gastroesophageal reflux disease (GERD). What are the causes? This condition is caused by a weakness in the opening (hiatus) where the esophagus passes through the diaphragm to attach to the upper part of the stomach. A person may be born with a weakness in the hiatus, or a weakness can develop over time. What increases the risk? This condition is more likely to develop in: ??? Older people. Age is a major risk factor for a hiatal hernia, especially if you are over the age of 50. ??? women. ??? People who are overweight. ??? People who have frequent constipation. What are the signs or symptoms? Symptoms of this condition usually develop in the form of GERD symptoms. Symptoms include: ??? Heartburn. ??? Upset stomach (indigestion). ??? Trouble swallowing. ??? Coughing or wheezing. Wheezing is making high-pitched whistling sounds when you breathe. ??? Sore throat. ??? Chest pain. ??? Nausea and vomiting. How is this diagnosed? This condition may be diagnosed during testing for GERD. Tests that may be done include: ??? X-rays of your stomach or chest. ??? An upper gastrointestinal (GI) series. This is an X-ray exam of your GI tract that is taken after you swallow a chalky liquid that shows up clearly on the X-ray. ??? Endoscopy. This is a procedure to look into your stomach using a thin, (more content not included)... Normal [facility] Comment on above: Result Comment: Elec tronically Signed By: Virgilio PITT, Wendie\.grey\Date and Time Signed: 09/06/24 10:50 EST H&P Updateon 09-06-2024 H&P Update H&P Update Patient: MARTITA MOFFETT Age: 63 years Sex: Female : 1960 Associated Diagnoses: None Author: Rebeka BIRMINGHAM, Al Srivastava Preoperative Information Chief compliant/Indication for procedure: GERD and history of polyps Chief Complaint as above Review of Systems All systems reviewed, negative except as mentioned above Physical Examination Vital Signs (last 24 hrs) Last Charted Temp Temporal 36.5 DegC (SEP 06 10:00) Heart Rate Monitored 73 bpm (SEP 06 10:00) SBP 128 mmHg (SEP 06 10:00) DBP 83 mmHg (SEP 06 10:00) Weight 81 kg (SEP 06 09:44) General: in Nad Abdomen: Soft, NTND Impression and Plan Diagnosis: GERD and history of polyps -EGD and colonoscopy Normal [facility] Main OR PACU II Recordon Main OR PACU II Record Main OR PACU II Record PACU Phase II Document Type FT Summary Primary Physician: Al Staley MD Finalized Date/Time: 09/06/24 11:25:16 Pt. Name: MARTITA MOFFETT Sydnee Briscoe/Sex: 1960 Female Med Rec #: [id number] Physician: Al Staley MD Financial #: [id number] Pt. Type: O Room/Bed: / Admit/Disch: 09/06/24 09:33:36 - Institution: Case Times PACU II FT Pre-Care Text: Identifies barriers to communication and implements measures to provide psychological support and determines knowledge level Develops individualized plan of care, and ensures continuity of care Maintains patient's dignity and privacy, and maintains patient confidentiality Identifies and reports philosophical, cultural, and spiritual beliefs and values Identifies individual values and wishes concerning care administers prescribed antibiotic therapy and immunizing agents as ordered, Evaluates postoperative tissue perfusion Implements thermoregulation measures, and monitors body temperature Evaluates postoperative respiratory status Evaluates postoperative cardiac status Evaluates postoperative neurological status Assesses pain control, collaborated in initiating patient-controlled analgesia and implements alternative methods of pain control Verifies allergies, administers prescribed medications and solutions, evaluates response to medications Entry 1 In PACU II 09/06/24 10:43:00 Discharge from PACU 09/06/24 11:15:00 II Outcomes Met? Yes Last Modified By: Wendie Poole RN 09/06/24 11:25:12 Post-Care Text: The patient demonstrates knowledge of the expected response to the operative or invasive procedure The patient's care is consistent with the individualized perioperative plan of care The patient's right to privacy is maintained The patient's value system, lifestyle, ethnicity, and culture are considered, respected, and incorporated into the perioperative plan of care The patient participates in decisions affecting his or her perioperative plan of care. The patient is free from signs and symptoms of infection The patient has wound/tissue perfusion consistent with or improved from baseline levels established preoperatively The patient is at or returning to normothermia at the conclusion of the immediate postoperative period The patient's respiratory function is consistent with or improved from baseline levels established preoperatively The patient's cardiovascular status is consistent with or improved from baseline levels established preoperatively The patient's neurological status is consistent with or improved from baseline levels established preoperatively The patient demonstrates and/or reports adequate pain control throughout the perioperative period The patient received appropriate medication(s), safely administered during the perioperative period Finalized By: Wendie Poole RN Document Signatures Signed By: Wendie Poole RN 09/06/24 11:25 [facility] Main OR Preoperative Recordo n 09-06-2024 Main OR Preoperative Record Main OR Preoperative Record Holding Area Document Type FT Summary Primary Physician: Al Staley MD Finalized Date/Time: 09/06/24 09:50:56 Pt. Name: MARTITA MOFFETT Sydnee /Sex: 1960 Female Med Rec #: [id number] Physician: Al Staley MD Financial #: [id number] Pt. Type: O Room/Bed: / Admit/Disch: 09/06/24 09:33:36 - Institution: Case Times Holding FT Pre-Care Text: Verifies consent for planned procedure, identifies individual values and wishes concerning care, includes family members in perioperative teaching Secures patient's records' belongings, and valuables, maintains patient's dignity and privacy, and maintains patient confidentiality Entry 1 In Holding 09/06/24 09:44:00 Outcomes Met? Yes Last Modified By: Jennifer Garcia RN 09/06/24 09:44:07 Post-Care Text: The patient participates in decisions affecting his or her perioperative plan of care The patient's right to privacy is maintained Surgery Checklist FT Entry 1 Patient Birthday, ID Band Procedure History and Physical, Identification: Check, Patient Verification: Surgical Consent, With Participation Patient NPO after Midnight: Yes Results Reviewed Clear Comments: Personal Items: Jewelry Personal Items Ring Comment: Complaints of Pain: No Pain Comment: Denies Operative Site n/a Availability Equipment Marking: Verified: Does Patient Smoke No Patient states Yes Comment - Adult Martín- postop adult Supervision supervision available Case Cancelled in No Holding Area see comments below for reason Last Modified By: Jennifer Garcia RN 09/06/24 09:50:50 General Comments: Pt completed prep at 0530 and remained NPO since/ROSALINDRN Finalized By: Jennifer Garcia RN Document Signatures Signed By: Jennifer Garcia RN 09/06/24 09:50 Normal [facility] Operative Reporton Operative Report Operative Report Patient: MARTITA MOFFETT Age: 63 years Sex: Female : 1960 Associated Diagnoses: None Author: Al Staley MD Pre-Procedure Procedure Date 09/06/2024 10:44:00 . Procedure Type: Colonoscopy. Procedure provider Performed by Al Staley MD. Current history and physical Documented on chart. Salpingo-oophorectomy ([id number]) on 03/12/2019 at 58 Years. Comments: 03/12/2019 15:08 EDT - Corwin CUMMINGS, Deepa bilateral Thyroidectomy ([id number]). Laparoscopy with fulguration of lesion ([id number]). Comments: 03/01/2019 7:48 Toshia Neves RN endometriosis. Past Medical History No active or resolved past medical history items have been selected or recorded.. Family History Primary malignant neoplasm of colon Grandparent . Procedure History Salpingo-oophorectomy ([id number]) on 03/12/2019 at 58 Years. Comments: 03/12/2019 15:08 EDT - Corwin JUANN, Deepa bilateral Thyroidectomy ([id number]). Laparoscopy with fulguration of lesion ([id number]). Comments: 03/01/2019 7:48 Toshia Nvees RN endometriosis. Colorectal neoplasm risk assessment High risk Previous history of polyps. . Informed Consent After discussing the rationale, risks and benefits, and alternatives to this procedure, the patient provided signed consent for the procedure. Pre-procedure diagnosis: History of colon polyps. Medications (Selected) Inpatient Medications Ordered Sodium Chloride 0.9% IV Yomaira 1000 mL 1,000 mL: 1,000 mL, IV, 20 mL/hr, Routine, Start date 09/06/24 6:47:00 EST, 50 hour(s), Total volume (mL): 1,000 Documented Medications Documented Fosamax 70 mg Tab: mg tab(s), Oral, qWeek, Refills(s) 0 Multivitamin, Therapeutic w/ Minerals: 1 tab(s), Oral, Daily, Refill(s) 0, Prophylaxis Protonix: 40 mg, Oral, Daily, Refills(s) 0, Control of stomach acid Synthroid: 112 microgram, Oral, Daily, Refills(s) 0, Thyroid Tylenol PM 500 mg-25 mg Tab: 2 tab(s), Oral, Once a day (at bedtime), Refill(s) 0, Pain Zinc: Refills(s) 0, Prophylaxis Zocor: Oral, qPM, Refills(s) 0, High cholesterol aspirin 81 mg Oral EC Tab: 81 mg = 1 tab(s), Oral, Daily, Refills(s) 0, Prophylaxis cetirizine: 10 mg, Oral, Daily, Refills(s) 0, Allergy symptoms Anticoagulant/antiplatelet None. ASA Classification: Class II. . Monitoring: See anesthesia record. . Procedure The procedure was performed in the hospital. See anesthesia record for sedation given during procedure. The patient was positioned starting in the left lateral decubitus position. Endoscope type used was a pediatric-size. The endoscope was lubricated then introduced through the anus. The scope was advanced to the terminal ileum. No difficulties encountered during the procedure. The bowel preparation quality was good and was adequate (see polyps greater than or equal to 6 millimeters). The patient tolerated the procedure well. Time to Cecum: 4 min Withdrawal time 8 min Last colonoscopy: 5 years ago Findings 1. Small internal hemorrhoids 2. Normal examined colon Post-Procedure Complications: none. Estimated blood loss: none. Specimens: none. Devices/ implants: none left in place. Impression and Plan Internal hemorrhoids Recommendations: Repeat colonoscopy:: In 10 years. Follow-up:: GI clinic as needed. Diet:: Previous. Medication resumption:: Continue current medications, Avoid NSAIDs. Return to activities:: After 24 hours. Education and Follow-up: Counseled: Patient, Family. Insertion time 5 minutes not 4 minutes Normal [facility] Comment on above: Result Comment: Elec tronically Signed By: Al Staley MD\.br\Date and Time Signed: 09/06/24 10:46 EST Operative Report Operative Report Patient: MARTITA MOFFETT Age: 63 years Sex: Female : 1960 Associated Diagnoses: None Author: Al Staley MD Pre-Procedure Procedure Date 09/06/2024 10:42:00 . Procedure Type: Esophagogastroduodenoscopy with biopsy. Procedure provider Performed by Al Staley MD. Current history and physical Documented on chart. Informed Consent After discussing the rationale, risks and benefits, and alternatives to this procedure, the patient provided signed consent for the procedure. Pre-procedure diagnosis: GERD. Medications (Selected) Inpatient Medications Ordered Sodium Chloride 0.9% IV Yomaira 1000 mL 1,000 mL: 1,000 mL, IV, 20 mL/hr, Routine, Start date 09/06/24 6:47:00 EST, 50 hour(s), Total volume (mL): 1,000 Documented Medications Documented Fosamax 70 mg Tab: mg tab(s), Oral, qWeek, Refills(s) 0 Multivitamin, Therapeutic w/ Minerals: 1 tab(s), Oral, Daily, Refill(s) 0, Prophylaxis Protonix: 40 mg, Oral, Daily, Refills(s) 0, Control of stomach acid Synthroid: 112 microgram, Oral, Daily, Refills(s) 0, Thyroid Tylenol PM 500 mg-25 mg Tab: 2 tab(s), Oral, Once a day (at bedtime), Refill(s) 0, Pain Zinc: Refills(s) 0, Prophylaxis Zocor: Oral, qPM, Refills(s) 0, High cholesterol aspirin 81 mg Oral EC Tab: 81 mg = 1 tab(s), Oral, Daily, Refills(s) 0, Prophylaxis cetirizine: 10 mg, Oral, Daily, Refills(s) 0, Allergy symptoms Anticoagulant/antiplatelet None. ASA Classification: Class II. . Monitoring: See anesthesia record. . Procedure The procedure was performed in the hospital. See anesthesia record for sedation given during procedure. The patient was positioned starting in the left lateral decubitus position and with safety measures. Endoscope type used was an adult-size, introduced orally, advanced to the 2nd portion of the duodenum. No difficulty was encountered during the procedure. Views were excellent. The patient tolerated the procedure well. Findings 1. Z-line at 38 cm. Hiatal hernia measuring 2 cm. LA grade B esophagitis. Possible 1 tongue of salmon-colored mucosa measuring 1 cm (C0 M1) (status post biopsies) 2. Normal examined stomach 3. Normal duodenum. 4. Normal vocal cord Images Procedure images: Rec1_hd_video___ _[id number].jpg Rec1_hd_video___ _[id number].jpg Rec1_hd_video___ _[id number].jpg Rec1_hd_video___ [id number].jpg Rec1_hd_video___ _[id number].jpg Rec1_hd_video___ _[id number].jpg Rec1_hd_video__ _[id number].jpg Rec1_hd_video__ _[id number].jpg Rec1_hd_video__ _[id number].jpg Rec1_hd_video__ [id number].jpg . Post-Procedure Complications: none. Estimated blood loss: minimal. Specimens: sent to pathology. Devices/ implants: none left in place. 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 LA grade B esophagitis Recommendations: -Resume previous diet -Resume home medications -Await pathology results, follow in GI clinic in 1-2 after discharge Normal [facility] Comment on above: Result Comment: Elec tronically Signed By: Rebeka BIRMINGHAM, Al Srivastava\.br\Date and Time Signed: 09/06/24 10:43 EST Other Comment: Arlene gentile Attachment - attachment storage system not supported [id number] Can be viewed in source system Missing Attachment - attachment storage system not supported [id number] Can be viewed in source system Missing Attachment - attachment storage system not supported [id number] Can be viewed in source system Missing Attachment - attachment storage system not supported [id number] Can be viewed in source system Missing Attachment - attachment storage system not supported [id number] Can be viewed in source system Missing Attachment - attachment storage system not supported [id number] Can be viewed in source system Missing Attachment - attachment storage system not supported [id number] Can be viewed in source system Missing Attachment - attachment storage system not supported [id number] Can be viewed in source system Missing Attachment - attachment storage system not supported [id number] Can be viewed in source system Missing Attachment - attachment storage system not supported [id number] Can be viewed in source system Ambulatory Visit Summaryon 1 Ambulatory Visit Summary Ambulatory Visit Summary MARTITA MOFFETT :1960 Visit Date:07/19/2024 Ambulatory Visit Instructions Your Diagnosis History of colon polyps Gastroesophageal reflux disease History of malignant neoplasm of thyroid Voice hoarseness Family hx of colon cancer Your Care Team Attending Physician - Rebeka BIRMINGHAM, lA Srivastava Primary Care Physician - Ulises Szymanski MD This Is Your Medications List Contact prescribing physician if questions or concerns acetaminophen-diphenhydrAMIN E (Tylenol PM 500 mg-25 mg Tab) alendronate (Fosamax 70 mg Tab) cetirizine ergocalciferol (Vitamin D) estradiol-norethindrone (Combipatch) levothyroxine (Synthroid) multivitamin with minerals (Multivitamin, Therapeutic w/ Minerals) pantoprazole (Protonix) simvastatin (Zocor) zinc sulfate (Zinc) Procedures Performed Salpingo-oophorectomy (03/12/2019), Laparoscopy with fulguration of lesion, Thyroidectomy. Discharge Vitals Heart Rate (Peripheral) 80 Respiratory Rate 16 Blood Pressure 130/77 Height 168 cm Height 66 in Weight 81.0 kg Weight 178.2 lb BMI 28.7 What to do next Scheduled Follow-Up Appointments Friday 2:45 PM EST With: Rebeka BIRMINGHAM, Al Srivastava Where: [facility] [address] [facility] [address] [address]- Friday 8:00 AM EST With: Where: [facility] Medications What How Much When Instructions Unchanged acetaminophen-diphenhydrAMIN E (Tylenol PM 500 mg-25 mg Tab) 2 Tablets By Mouth Once a day (at bedtime) Contact prescribing physician if questions or concerns Unchanged alendronate (Fosamax 70 mg Tab) By Mouth Every week Contact prescribing physician if questions or concerns Unchanged cetirizine 10 Milligram By Mouth Every day Contact prescribing physician if questions or concerns Unchanged ergocalciferol (Vitamin D) unknwn dose By Mouth Once a month Contact prescribing physician if questions or concerns Unchanged estradiol-norethindrone (Combipatch) 0.05-0.14 mg/ hr Topical Every 3 days Contact prescribing physician if questions or concerns Unchanged levothyroxine (Synthroid) 112 Microgram By Mouth Every day Contact prescribing physician if questions or concerns Unchanged multivitamin with minerals (Multivitamin, Therapeutic w/ Minerals) 1 Tablets By Mouth Every day Contact prescribing physician if questions or concerns Unchanged pantoprazole (Protonix) 40 Milligram By Mouth Every day Contact prescribing physician if questions or concerns Unchanged simvastatin (Zocor) By Mouth Once a day (in the evening) Contact prescribing physician if questions or concerns Unchanged zinc sulfate (Zinc) Contact prescribing physician if questions or concerns Medications and Immunizations Administered Not Given influenza virus vaccine, inactivated, Patient Refuses Allergies No Known Allergies Problems Ongoing - Any problem that you are currently receiving treatment for. Abdominal pain Family hx of colon cancer Gastroesophageal reflux disease History of colon polyps History of malignant neoplasm of thyroid Osteoporosis Voice hoarseness Patient Survey You may receive a survey via text or e-mail asking about your office visit. Please share your experience with us by completing your survey. We appreciate your feedback and thank you for choosing us for your care. Normal [facility] Gastroenterology Office/Clin ic Noteon 07-19-2024 Gastroenterology Office/Clinic Note Gastroenterology Office/Clinic Note Chief Complaint 5 year recall HPI Staff Patient is a(n) 63 year old female who presents today for a 5 year colonoscopy recall. Fhx colon cancer (PATERNAL GRANDMOTHER) Denies previous EGD. Hx colon polyps - TA in 2017. Denies n/v/c/d, abd pain, bloody or mucus stools. Acid reflux- taking pantoprazole 40mg, controlled- referred to ENT for voice hoarseness Blood thinners? no GLP-1 agonists? no Colonoscopy 03/30/19 w/Dr. Esparza: Impression: - Nonbleeding internal hemorrhoids - Otherwise normal colonoscopy. Recommendations: Repeat colonoscopy:: In 5 years. History of Present Illness I have reviewed HPI staff note, most recent labs and imaging, more than 30 minutes spent reviewing the chart, during encounter, placing orders and counseling the patient. Pt with hoarseness in the voice scheduled to see ENT does not have bad acid reflux on Protonix daily for 5 years hx of colon cancer in [place] Review of Systems PHQ Score Initial Depression Screen Score: 0 SCORE All systems reviewed, negative except as mentioned above Physical Exam Vitals & Measurements HR: 80(Peripheral) RR: 16 BP: 130/77 HT: 66 in HT: 168 cm WT: 81.0 kg WT: 178.2 lb BMI: 28.7 General: alert, no acute distress HEENT: atraumatic normocephalic Cardiovascular: regular rate and rhythm Extremities: no deformity, no trauma Abdomen: Benign, soft, nontender nondistended Assessment/Plan 1. History of colon polyps (Z86.0100: Personal history of colon polyps, unspecified) Ordered: Colonoscopy (Hospital Procedure) 2. Gastroesophageal reflux disease (K21.9: Gastro-esophageal reflux disease without esophagitis) Ordered: EGD Endoscopy (Hospital Procedure) 3. History of malignant neoplasm of thyroid (Z85.850: Personal history of malignant neoplasm of thyroid) 4. Voice hoarseness (R49.0: Dysphonia) 5. Family hx of colon cancer (Z80.0: Family history of malignant neoplasm of digestive organs) Continue PPI Agree with ENT evaluation Schedule upper endoscopy to evaluate GERD and hoarseness of the voice Schedule colonoscopy given history of polyps and family history of colon cancer Follow-up No qualifying data available Problem List/Past Medical History Ongoing Abdominal pain Family hx of colon cancer Gastroesophageal reflux disease History of colon polyps History of malignant neoplasm of thyroid Osteoporosis Voice hoarseness Historical No qualifying data Procedure/Surgical History Salpingo-oophorectomy (03/12/2019), Laparoscopy with fulguration of lesion, Thyroidectomy. Medications cetirizine, 10 mg, Oral, Daily Combipatch, 0.05-0.14 mg/ hr, Topical, q3day Fosamax 70 mg Tab, Oral, qWeek Multivitamin, Therapeutic w/ Minerals, 1 tab(s), Oral, Daily Protonix, 40 mg, Oral, Daily Synthroid, 112 mcg, Oral, Daily Tylenol PM 500 mg-25 mg Tab, 2 tab(s), Oral, Once a day (at bedtime) Vitamin D, unknwn dose, Oral, qMonth, Not taking Zinc Zocor, Oral, qPM Allergies No Known Allergies Social History Alcohol - Denies Alcohol Use, 03/01/2019 Substance Abuse - Denies Substance Abuse, 03/01/2019 Tobacco - Denies Tobacco Use, 03/01/2019 Never (less than 100 in lifetime) Tobacco Use:. Never Smokeless Tobacco Use:., 07/19/2024 Family History Primary malignant neoplasm of colon: Grandparent. Immunizations Vaccine Date Status Comments influenza virus vaccine, inactivated - Not Given Patient Refuses influenza virus vaccine, inactivated 07/03/2023 Recorded influenza virus vaccine, inactivated 07/14/2022 Recorded zoster vaccine, inactivated 05/09/2022 Recorded zoster vaccine, inactivated 11/08/2021 Recorded SARSCoV2 mRNA(ibuwhmpdi-mevh-dhhkhh) vac 11/08/2021 Recorded 2024-07-19: TPV60 influenza virus vaccine, inactivated 07/03/2021 Recorded SARS-CoV-2 (COVID-19) mRNA T-162b2 vax 02/26/2021 Recorded SARS-CoV-2 (COVID-19) mRNA BNT-162b2 vax 01/17/2021 Recorded influenza virus vaccine, inactivated 07/03/2020 Recorded influenza virus vaccine, inactivated 07/14/2019 Recorded influenza virus vaccine, inactivated 07/15/2018 Recorded influenza virus vaccine, inactivated 07/24/2017 Recorded diphtheria/pertussis, acel/tetanus adult 12/11/2016 Recorded influenza virus vaccine, inactivated 07/25/2016 Recorded influenza virus vaccine, inactivated 08/04/2015 Recorded Normal [facility] Comment on above: Result Comment: Elec tronically Signed By: Rebeka [place], Al Chery.grey\Date and Time Signed: 07/19/24 14:22 EDT CNPNon 07-07-2024 CNPN Telephone (NCCAP) MARTITA MOFFETT ([id number]) 1960 F Date Time Provider Department 07/07/24 Patience VILLEGAS During your visit today, we recorded the following information about you: Jana France HUC 07/07/2024 10:58 AM Signed I called the Patient today to get her scheduled for her 1 year follow up and labs: Labs- 06/30/2025 F/U- 07/07/[address] Haney' office to get the Patient referred over to them. Teodora Marie- Can you please fax over her records to Dr. Haney' office- . The office stated they will look over her records and then call the Patient in the next day to schedule her. They stated they even have openings as early as next week. I will follow up with his Office to make sure she is scheduled as well. LUIS Ford Jennifer L 07/07/2024 12:46 PM Signed Records faxed to Dr. Haney. Jana France HUC 07/16/2024 10:24 AM Signed I called and spoke with Dr. Haney' office and the Patient is scheduled on Friday07/26/24 at 240 pm. LUIS Ford Allergies As of Date: 07/07/2024 (No Known Allergies) Date Reviewed: 07/06/2024 Reviewed by: Kati Nolen LPN - Fully Assessed Reason for Visit: ENT Referral [Other] Prescriptions as of 07/27/2024 - levothyroxine (SYNTHROID) 100 mcg tablet Take 1 tablet by mouth once daily. - vitamin D3-vitamin K2 (DOSOKAP) 137.5-200 mcg tab Take by mouth. - pantoprazole DR (PROTONIX) 40 mg tablet [...] 50 mg tab Take by mouth. - diphenhydrAMINE-Acetaminophe n (TYLENOL PM EXTRA STRENGTH) 25-500 mg tab Take by mouth. - BABY ASPIRIN ORAL Take by mouth. - Cetirizine 10 mg cap Take by mouth. Problem List As Of Date 07/07/2024 Noted Resolved Malignant neoplasm of thyroid gland (HCC) [C73] 05/30/2014 History of thyroid cancer [Z85.850] 06/07/2015 Encounter Status:Closed by JANA FRANCE on 07/27/24 [facility] CNOVon 07-06-2024 CNOV Office Visit (RADTSA ) MARTITA MOFFETT ([id number]) 1960 F Date Time Provider Department 07/06/24 4:00 PM Patience VILLEGAS During your visit today, we recorded the following information about you: Temperature Pulse Respiration Blood pressure 97.8 degrees 70/minute 16/minute 146/87 Weight 81 kg Patience Villegas MD 07/07/2024 12:18 PM Signed Radiation Oncology - Follow Up Note PATIENT NAME: Martita Moffett PATIENT DIAGNOSIS: Thyroid cancer INTERVAL HISTORY: Overall doing well. She has had some raspiness to her voice for the last 1 to 2 months. Denies dyspnea. Denies neck pain or dysphagia. Does have some mild seasonal allergies. 06/20/21:Earlier this year patient developed severe recurrent infection with pneumonia hypercoagulability, was inpatient for some time. She has since recovered and is back to work without significant residual issues. LABORATORY: Latest Reference Range AND Units 06/13/21 08:11 06/21/22 13:18 06/24/23 15:43 06/29/24 15:54 Thyroglobulin, LC-MS/MS 1.3 - 31.8 ng/mL <0.5 (L) T4 5.5 - 10.2 ug/dL 8.8 9.8 8.2 8.7 TSH 0.270 - 4.200 mIU/L 1.280 0.855 0.345 1.090 Thyroglobulin Ab <14.4 IU/mL <1.0 <1.0 Thyroglobulin 1.6 - 59.9 ng/mL <0.2 (L) <0.2 (L) Thyroglobulin Ab, Serum <4.0 IU/mL <0.9 Thyroglobulin, Serum 1.6 - 50.0 ng/mL <0.1 (L) (L): Data is abnormally low Latest Reference Range AND Units 06/13/21 08:11 [...] Take 1 tablet by mouth once daily. vitamin D3-vitamin K2 (DOSOKAP) 137.5-200 mcg tab Take by mouth. pantoprazole DR (PROTONIX) 40 mg tablet Take [...] Zinc 50 mg tab Take by mouth. diphenhydrAMINE-Acetaminophe n (TYLENOL PM EXTRA STRENGTH) 25-500 mg tab [...] systems is negative. PHYSICAL EXAM: VS: BP 146/87 Pulse 70 Temp 36.6 ?C (97.8 ?F) Resp 16 Wt 81 kg (178 lb 9.2 oz) SpO2 99% KPS: 100 General Appearance: Well [...] with repeat thyroglobulin and thyroid function tests. 3. Voice change. Recommend evaluation by ENT. Signed by: Patience Villegas MD CC Dr. Haney Portions of the above note extracted and edited from previous visit as well as active information included in the EMR. Referring Provider: Patience VILLEGAS [[id number]] Allergies As of Date: 07/06/2024 (No Known Allergies) Date Reviewed: 07/06/2024 Reviewed by: Kati Nolen LPN - Fully Assessed Reason for Visit: Thyroid Cancer [879] Primary Visit Diagnosis:History of thyroid cancer [Z85.850] Order(s):T4/THYROXINE [SQT4] Order #: [id number] FUTURE THYROID STIMULATING HORMONE [SQTSH] Order #: [id number] FUTURE THYROGLOBULIN, SERUM WITH REFLEX TO IA OR LC-MS/MS [SQTHYRORF] Order #: [id number] FUTURE Prescriptions as of 07/07/2024 - levothyroxine (SYNTHROID) 100 mcg tablet Take 1 tablet by mouth once daily. - vitamin D3-vitamin K2 (DOSOKAP) 137.5-200 mcg tab Take by mout (more content not included)... Normal [facility] T4 SerPl-mCncon 06-29-2024 T4 [Mass/Vol] 8.7 ug/dL Normal 5.5-10.2 [facility] Comment on above: Order Comment: Omar acosta Type: BLOOD SPECIMEN Ordering Facility: [facility] Address: [address] [place] [address] Performed By: #### 3 026-2, 3016-3 #### [facility] CLIA [id number] [address] [place] [address] [place] THYROGLOBULIN BY LC-MS/MS, S JASS OR PLASMA, FOR THYROGLOBULIN ANTIBODY INTERFERENCEon 06-29-2024 THYROGLOBULIN, LC-MS/MS <0.5 Low 1.3-31.8 [facility] Comment on above: Order Comment: Omar acosta Type: BLOOD SPECIMEN Ordering Facility: [facility] Address: [address] [place] [address] Result Comment: Results obtained with different test methods or kits cannot be used interchangeably. Thyroglobulin results, regardless of concentration, should not be interpreted as absolute evidence for the presence or absence of papillary or follicular thyroid cancer. Thyroglobulin testing is not recommended for use as a screening procedure to detect the presence of thyroid cancer in the general population. INTERPRETIVE INFORMATION: Thyroglobulin by LC-MS/MS, Serum/Plasma Lower limit of detection for Thyroglobulin by LC-MS/MS is 0.5 ng/mL. This test was developed and its performance characteristics determined by [facility]. It has not been cleared or approved by the US Food and Drug Administration. This test was performed in a CLIA certified laboratory and is intended for clinical purposes. Performed By: [facility] [address] [place] [address] Cutter Inspector: Branden White MD, PhD CLIA Number: [id number] Performed By: #### [facility] #### [facility] CLIA [id number] [address] [place] [address] TSH SerPl-aCncon 06-29-2024 TSH Qn 1.090 m[IU]/L Normal 0.270-4.200 [facility] Comment on above: Order Comment: Speci men Type: BLOOD SPECIMEN Ordering Facility: [facility] Address: [address] [place] [address] Performed By: #### 3 026-2, 3016-3 #### [facility] CLIA [id number] [address] [place] [address] [place] BD Bone Density DEXAon 05-29 BD Bone Density DEXA Exam Date/Time: 05/25/2024 13:38 EDT Reason for Exam: M85.80 Report IMPRESSION: OSTEOPENIA. The 10 year probability (FRAX) of a major osteoporotic fracture based on the left femoral neck bone marrow density is: 9.7%, and hip fracture 1.2%. EXAM: BD Bone Density DEXA DATE: 05/25/2024 1:10 PM CLINICAL HISTORY: M85.80. COMPARISON: Most recently 04/16/2022. COMMENTS: The lumbar spine and both hips were scanned. The mean bone mineral density from L1 to L4 is 1.208 g/cm2 and this value is 0.2 standard of deviation above the standard reference value for a young adult. Bone mineral density of the left femoral neck is 0.784 g/cm2 and this value is -1.8 standard of deviation below the standard reference value. Bone mineral density of the right femoral neck is 0.820 g/cm2 and this value is -1.6 standard of deviation below the standard reference value. These values meet WHO criteria for osteopenia. When compared to the most recent prior exam, there has been a significant 2.7% increase in bone mineral density from L1 to L4, a nonsignificant -2.9% decrease in bone mineral density of the left femoral neck, and a nonsignificant 2.4% increase in bone mineral density of the right femoral neck. RECOMMENDATIONS: 1. All patients should optimize her calcium and vitamin D intake. 2. Consider FDA-approved medical therapies in postmenopausal women and minimal age 50 years and older, based on the following: - hip or vertebral (clinical or morphometric) fracture. - T-score less than or equal to -2.5 at the femoral neck or spine after the appropriate evaluation to exclude secondary causes. - Low bone density (T score between -1.0 and -2.5 at the femoral neck or spine) and a 10 year probability of hip fracture greater than or equal to 3% or a 10-year probability of a major osteoporosis-related fracture greater than or equal to 20% based on FRAX calculation. Report - Clinician judgment and/or patient preferences may indicate treatment for palpable attenuation fracture probability is above or below these levels. - Further guidance on treatment can be found at the National Osteoporosis Foundation's website: bonesource.org 3. Patients with diagnosis of osteoporosis or high risk for fracture. There are irregular bone mineral density tests. For patients eligible for Medicare, routine testing is allowed once every 2 years. Testing frequency can be increased to 1 year for patient's history of rapidly progressing disease, those who are receiving or discontinuing medical therapy to restore bone mass or have additional risk factors. Ordering Provider: Naomi Lucio FINAL REPORT Dictated: 05/29/2024 1:39 pm Clive Haskins MD Signed (Electronic Signature): 05/29/2024 1:39 pm Signed by: Clive Haskins MD Transcribed by: JKAE Technologist: ARYAN Padilla [facility] CHEMISTRYOrdered By: SYSTEM SYSTEM on 05-25-2024 Creatinine [Mass/Vol] 0.9 mg/dL Normal 0.5 - 1.3 mg/dL Remisol Chem eGFR 72 mL/min/1.73 m2 Normal >=59mL/min / 1.73 m2 Remisol Chem Creatinineon 05-25-2024 Creatinine [Mass/Vol] 0.9 mg/dL Normal 0.5-1.3 [facility] Comment on above: Performed By: #### 2 [id number] #### [facility] [address] [place] [address] eGFRon 05-25-2024 eGFR 72 mL/min/1.73 m2 Normal >=59 [facility] Comment on above: Order Comment: Order added by Discern Expert. Performed By: #### 1 [id number] ####[facility] [address] [place] [address] Patient Letter FTMCon 2023 Patient Letter [facility] (Inserted Image. Sarah ble to display) March 04, [address] [address] : 1960 Dear Martita, This is a reminder that you are due for an appointment with [facility]. Please contact our office at [phone] to schedule an appointment at your earliest convenience. Thank you, [facility] Normal [facility] Patient Letter [facility] (Inserted Image. Sarah ble to display) March 04, [address] [address] : 1960 Dear Martita, This is a reminder that you are due for an appointment with [facility]. Please contact our office at [phone] to schedule an appointment at your earliest convenience. Thank you, [facility] Normal [facility] Mamm Screen w/CAD if perf and 3D [...] VERY IMPORTANT TO YOUR HEALTH. THE CURRENT [employer] N[employer] COMPREHENSIVE CANCER [...] Category 1-Negative Recommendation: Normal interval follow-up Normal [facility] Consent for Treatmenton 09-13 Consent for Treatment [id number] Normal [facility] CHEMISTRYOrdered By: SYSTEM SYSTEM on 05-20-2023 25-hydroxyvitamin D3 [Mass/Vol] 40.2 ng/mL Normal 30.0 - 100.0 ng/mL [facility] Remisol Calcium [Mass/Vol] 9.4 mg/dL Normal 8.9 - 11. 1 mg/dL [facility] Remisol Creatinine [Mass/Vol] 0.9 mg/dL Normal 0.5 - 1.3 mg/dL [facility] Remisol GFR/1.73 sq M.predicted among non-blacks MDRD (S/P/Bld) [Vol rate/Area] 72 mL/min/1.73 m2 Normal >=59mL/min/ 1.73 m2 [facility] Chem S CT ABD/PELVIS WO CONon 08-02 CT ABD/PELVIS [...] by: GIAN LEIVA Date: 2022-08-02 13:33 Normal [facility] XR KUB 1 VIEWon 08-01-2022 XR KUB [...] by: GIAN LEIVA Date: 2022-08-01 12:01 Normal [facility] CBC AUTO DIFFon 05-30-2022 BASO # 0.1 103/ul Normal 0.0-0.1 [facility] Comment on above: Performed By: #### H FPFCBC #### [facility] [address] [place] [address] Dr. Franchesca Ramos Basophils/100 WBC (Bld) 1.0 % Normal 0.2-2.0 [facility] Comment on above: Performed By: #### H FPFCBC #### [facility] [address] [place] [address] Dr. Franchesca Ramos EO # 0.1 103/ul Normal 0.0-0.7 [facility] Comment on above: Performed By: #### H FPFCBC #### [facility] [address] [place] [address] Dr. Franchesca Ramos Eosinophils/100 WBC (Bld) 1.4 % Normal 0.9-7.0 [facility] Comment on above: Performed By: #### H FPFCBC #### [facility] [address] [place] [address] Dr. Franchesca Ramos Erythrocyte distribution width (RBC) [Ratio] 12.8 % Normal 11.0-15.0 [facility] Comment on above: Performed By: #### H FPFCBC #### [facility] [address] [place] [address] Dr. Franchesca Ramos Hematocrit (Bld) [Volume fraction] 40.5 % Normal 36.0-48.0 [facility] Comment on above: Performed By: #### H FPFCBC #### [facility] [address] [place] [address] Dr. Franchesca Ramos Hemoglobin (Bld) [Mass/Vol] 13.6 g/dL Normal 12.0-16.0 [facility] Comment on above: Performed By: #### H FPFCBC #### [facility] [address] [place] [address] Dr. Franchesca Ramos IG # 0.02 10e3/ul Normal 0.00-0.03 [facility] Comment on above: Performed By: #### H FPFCBC #### [facility] [address] [place] [address] Dr. Franchesca Ramos IG % 0.3 % Normal 0.0-0.5 [facility] Comment on above: Performed By: #### H FPFCBC #### [facility] [address] [place] [address] Dr. Franchesca Ramos LYMPH # 2.6 103/ul Normal 1.2-3.8 [facility] Comment on above: Performed By: #### H FPFCBC #### [facility] [address] [place] [address] Dr. Franchesca Ramos Lymphocytes/100 WBC (Bld) 44.3 % Normal 20.5-60.0 [facility] Comment on above: Performed By: #### H FPFCBC #### [facility] [address] [place] [address] Dr. Franchesca Ramos MCH (RBC) [Entitic mass] 31.7 pg Normal 26.7-34.0 [facility] Comment on above: Performed By: #### H FPFCBC #### [facility] [address] [place] [address] Dr. Franchesca Ramos MCHC (RBC) [Mass/Vol] 33.6 g/dL Normal 29.9-35.2 [facility] Comment on above: Performed By: #### H FPFCBC #### [facility] [address] [place] [address] Dr. Franchesca Ramos MCV (RBC) [Entitic vol] 94.4 fL Normal 81.0-99.0 [facility] Comment on above: Performed By: #### H FPFCBC #### [facility] [address] [place] [address] Dr. Franchesca Ramos MONO # 0.5 103/ul Normal 0.3-0.8 [facility] Comment on above: Performed By: #### H FPFCBC #### [facility] [address] [place] [address] Dr. Franchesca Ramos Monocytes/100 WBC (Bld) 8.5 % Normal 1.7-12.0 [facility] Comment on above: Performed By: #### H FPFCBC #### [facility] [address] [place] [address] Dr. Franchesca Ramos NEUT # 2.6 103/ul Normal 1.4-6.5 [facility] Comment on above: Performed By: #### H FPFCBC #### [facility] [address] [place] [address] Dr. Franchesca Ramos Neutrophils/100 WBC (Bld) 44.5 % Normal 43.0-75.0 [facility] Comment on above: Performed By: #### H FPFCBC #### [facility] [address] [place] [address] Dr. Franchesca Ramos Platelet mean volume (Bld) [Entitic vol] 10.2 fL Normal 9.5-13.5 [facility] Comment on above: Performed By: #### H FPFCBC #### [facility] [address] [place] [address] Dr. Franchesca Ramos PLT 241 103/ul Normal 150-450 [facility] Comment on above: Performed By: #### H FPFCBC #### [facility] [address] [place] [address] Dr. Franchesca Ramos RBC 4.29 106/ul Normal 4.20-5.40 [facility] Comment on above: Performed By: #### H FPFCBC #### [facility] [address] [place] [address] Dr. Franchesca Ramos WBC 5.9 103/ul Normal 4.0-11.0 [facility] Comment on above: Performed By: #### H FPFCBC #### [facility] [address] [place] [address] Dr. Franchesca Ramos HEALTH[employer] PROFILEon 022 Albumin [Mass/Vol] 4.0 g/dL Normal 3.4-5.0 [facility] Comment on above: Performed By: #### H FPF #### [facility] [address] [place] [address] Dr. Franchesca Ramos Albumin/Globulin [Mass ratio] 1.3 {ratio} Normal [facility] Comment on above: Performed By: #### H FPF #### [facility] [address] [place] [address] Dr. Franchesca Ramos ALP [Catalytic activity/Vol] 54 U/L Normal 46-116 [facility] Comment on above: Performed By: #### H FPF #### [facility] [address] [place] [address] Dr. Franchesca Ramos ALT [Catalytic activity/Vol] 23 U/L Normal 14-59 [facility] Comment on above: Performed By: #### H FPF #### [facility] [address] [place] [address] Dr. Franchesca Ramos AST [Catalytic activity/Vol] 17 U/L Normal 15-37 [facility] Comment on above: Performed By: #### H FPF #### [facility] [address] [place] [address] Dr. Franchesca Ramos Bilirubin [Mass/Vol] 0.7 mg/dL Normal 0.2-1.0 [facility] Comment on above: Performed By: #### H FPF #### [facility] [address] [place] [address] Dr. Franchesca Ramos Calcium [Mass/Vol] 8.9 mg/dL Normal 8.5-10.1 [facility] Comment on above: Performed By: #### H FPF #### [facility] [address] [place] [address] Dr. Franchesca Ramos Chloride [Moles/Vol] 104 mmol/L Normal 98-107 [facility] Comment on above: Performed By: #### H FPF #### [facility] [address] [place] [address] Dr. Franchesca Ramos CHOL-HDL RATIO NORM SEE BELOW Normal [facility] Comment on above: Result Comment: 3.3 - 4.4 LOW RISK 4.4 - 7.1 AVERAGE RISK 7.1 - 11.0 MODERATE RISK >11.0 HIGH RISK Performed By: #### H FPF #### [facility] [address] [place] [address] Dr. Franchesca Ramos Cholesterol [Mass/Vol] 175 mg/dL Normal <=200 [facility] Comment on above: Performed By: #### H FPF #### [facility] [address] [place] [address] Dr. Franchesca Ramos Cholesterol in HDL [Mass/Vol] 59 mg/dL Normal 40-60 [facility] Comment on above: Performed By: #### H FPF #### [facility] [address] [place] [address] Dr. Franchesca Ramos Cholesterol in LDL [Mass/Vol] 92.2 mg/dL Normal [facility] Comment on above: Performed By: #### H FPF #### [facility] [address] [address] [address] Franchesca Ramos Cholesterol.total/C holesterol in HDL [Mass ratio] 3.0 {ratio} Normal [facility] Comment on above: Performed By: #### H FPF #### [facility] [address] [address] [address] Franchesca Ramos CO2 [Moles/Vol] 27.7 mmol/L Normal 21.0-32.0 [facility] Comment on above: Performed By: #### H FPF #### [facility] [address] [place] [address] Dr. Franchesca Ramos Creatinine [Mass/Vol] 0.91 mg/dL Normal 0.55-1.02 [facility] Comment on above: Performed By: #### H FPF #### [facility] [address] [place] [address] Dr. Franchesca Ramos Globulin (S) [Mass/Vol] 3.2 g/dL Normal [facility] Comment on above: Performed By: #### H FPF #### [facility] [address] [place] [address] Dr. Franchesca Ramos Glucose [Mass/Vol] 89 mg/dL Normal 74-106 [facility] Comment on above: Performed By: #### H FPF #### [facility] [address] [address] [address] Franchesca Ramos HDL NORMAL > or = 60 mg/dl - LO W CARDIOVASCULAR RISK <40 mg/dl - HIGH CARDIOVASCULAR RISK Normal [facility] Comment on above: Performed By: #### H FPF #### [facility] [address] [place] [address] Dr. Franchesca Ramos LDL CALC NORMAL SEE BELOW Normal [facility] Comment on above: Result Comment: <100 mg/dl OPTIMAL 100 - 129 mg/dl NEAR OR ABOVE OPTIMAL 130 - 159 mg/dl BORDERLINE HIGH 160 - 189 mg/dl HIGH >190 mg/dl VERY HIGH Performed By: #### H FPF #### [facility] [address] [address] [address] Franchesca Ramos Potassium [Moles/Vol] 3.8 mmol/L Normal 3.5-5.1 [facility] Comment on above: Performed By: #### H FPF #### [facility] [address] [address] [address] Franchesca Ramos Protein [Mass/Vol] 7.2 g/dL Normal 6.4-8.2 [facility] Comment on above: Performed By: #### H FPF #### [facility] [address] [address] [address] Franchesca Ramos Sodium [Moles/Vol] 139 mmol/L Normal 136-145 [facility] Comment on above: Performed By: #### H FPF #### [facility] [address] [address] [address] Franchesca Ramos Triglyceride [Mass/Vol] 119 mg/dL Normal <=150 [facility] Comment on above: Performed By: #### H FPF #### [facility] [address] [address] [address] Franchesca Ramos TSH 0.648 uIU/mL Normal 0.358-3.740 [facility] Comment on above: Performed By: #### H FPF #### [facility] [address] [address] [address] Franchesca Ramos Urea nitrogen [Mass/Vol] 18.0 mg/dL Normal 7.0-18.0 [facility] Comment on above: Performed By: #### H FPF #### [facility] [address] [address] [address] Franchesca Ramos Urea nitrogen/Creatinine [Mass ratio] 19.8 mg/mg Normal [facility] Comment on above: Performed By: #### H FPF #### [facility] [address] [address] [address] Franchesca Ramos VLDL CALC 23.8 mg/dL Normal [facility] Comment on above: Performed By: #### H FPF #### [facility] [address] [address] [address] Franchesca Ramos CHEMISTRYOrdered By: SYSTEM SYSTEM on 04-16-2022 25-hydroxyvitamin D3 [Mass/Vol] 61.1 ng/mL Normal 30.0 - 100.0 ng/mL [facility] Rem[facility] Calcium [Mass/Vol] 9.5 mg/dL Normal 8.9 - 11. 1 mg/dL [facility] Remisol Creatinine [Mass/Vol] 0.7 mg/dL Normal 0.5 - 1.3 mg/dL [facility] Remisol GFR/1.73 sq M.predicted among blacks MDRD (S/P/Bld) [Vol rate/Area] mL/min/1.73 m2 Normal >=59mL/min/ 1.73 m2 [facility] Chem S GFR/1.73 sq M.predicted among non-blacks MDRD (S/P/Bld) [Vol rate/Area] mL/min/1.73 m2 Normal >=59mL/min/ 1.73 m2 [facility] Chem S CHEMISTRYOrdered By: SYSTEM SYSTEM on 02-19-2022 Creatinine [Mass/Vol] 0.7 mg/dL Normal 0.5 - 1.3 mg/dL [facility] Remisol GFR/1.73 sq M.predicted among blacks MDRD (S/P/Bld) [Vol rate/Area] mL/min/1.73 m2 Normal >=59mL/min/ 1.73 m2 [facility] Chem S GFR/1.73 sq M.predicted among non-blacks MDRD (S/P/Bld) [Vol rate/Area] mL/min/1.73 m2 Normal >=59mL/min/ 1.73 m2 [facility] Chem S CTA CHEST WO W CONon -12-2 021 CTA CHEST WO W CON EXAMINATION: CTA [facility] ST WO W CON HISTORY: Embolism of right [...] by: FABY YOUNG Date: 2021-09-23 15:10 Normal [facility] CREATININEon 09-21-2021 Creatinine [Mass/Vol] 0.86 mg/dL Normal 0.52-1.04 [facility] Comment on above: Performed By: #### C MALIK #### [facility] [address] [address] [address] Franchesca Ramos EGFR-AF [place] >60 Normal >=60 [facility] Comment on above: Performed By: #### C MALIK #### [facility] [address] [address] [address] Franchesca Ramos EGFR-NON AF [place] >60 Normal >=60 [facility] Comment on above: Performed By: #### C MALIK #### [facility] [address] [address] [address] Franchesca Ramos TERESA Antinuclear Antibodieson 12-19-2020 Antinuclear Abs, IFA Positive Critically abnormal . [facility] Comment on above: Result Comment: Nega tive <1:80 Borderline 1:80 Positive >1:80 Performed By: #### C RP, CK, CREAT, CBC, ADDONUAPLUS, ESR #### [facility] [address] [place] [address] [place] #### TERESA, C3, C4 #### [facility] , Homogeneous Pattern 1:160 High . [facility] Comment on above: Performed By: #### C RP, CK, CREAT, CBC, ADDONUAPLUS, ESR #### [facility] [address] [place] [address] [place] #### TERESA, C3, C4 #### [facility] , Note 1 Normal . [facility] Comment on above: Result Comment: A po sitive TERESA result may occur in healthy individuals (low titer) or be associated with a variety of diseases. See interpretation chart which is not all inclusive: Pattern Antigen Detected Suggested Disease Association Homogeneous DNA(ds,ss), SLE - High titers Nucleosomes, Histones Drug-induced SLE Speckled Sm, SUBCONTRACT MANAGER, SCL-70, SLE,MCTD,PSS (diffuse form), SS-A/SS-B Sjogrens Nucleolar SCL-70, PM-1/SCL High titers Scleroderma, PM/DM Centromere Centromere PSS (limited form) w/Crest syndrome variable Nuclear Dot [id number] Primary Biliary Cirrhosis Nuclear GP210, Primary Biliary Cirrhosis Membrane miguel A,B,C Performed at: [facility] [id number] Supervisor [employer] Education: Rickie Hancock PhD, Phone: [phone] Performed By: #### C RP, CK, CREAT, CBC, ADDONUAPLUS, ESR #### [address] #### TERESA, C3, C4 #### [facility] , C-Reactive Proteinon 021 C-Reactive Protein 0.6 mg/dL Normal 0.0-1.0 [facility] Comment on above: Result Comment: PERF ORMED BY: [place] [address] PATHOLOGIST MUCKING MACHINE OPERATOR MARYLU LINARES M.D. Performed By: #### C RP, CK, CREAT, CBC, ADDONUAPLUS, ESR #### [address] #### TERESA, C3, C4 #### [facility] , Complement C3on 12-19-2020 Complement C3 125 mg/dL Normal 82-167 [facility] Comment on above: Result Comment: Perf ormed at: [facility] [address] [id number] Supervisor [employer] Education: Rickie Hancock PhD, Phone: [phone] Performed By: #### C RP, CK, CREAT, CBC, ADDONUAPLUS, ESR #### [address] #### TERESA, C3, C4 #### [facility] , Complement C4on 12-19-2020 Complement C4 21 mg/dL Normal 12-38 [facility] Comment on above: Result Comment: PERF ORMED BY: [place] [address] PATHOLOGIST MUCKING MACHINE OPERATOR MARYLU LINARES M.D. Performed By: #### C RP, CK, CREAT, CBC, ADDONUAPLUS, ESR #### [address] #### TERESA, C3, C4 #### [facility] , Complete Blood Count Auto Di ffon 12-19-2020 Basophils (Bld) [#/Vol] 0.0 10*3/uL Normal 0.0-0.2 [facility] Comment on above: Performed By: #### C RP, CK, CREAT, CBC, ADDONUAPLUS, ESR #### [address] #### TERESA, C3, C4 #### [facility] , Basophils/100 WBC (Bld) 0.8 % Normal . [facility] Comment on above: Performed By: #### C RP, CK, CREAT, CBC, ADDONUAPLUS, ESR #### [address] #### TERESA, C3, C4 #### [facility] , Eosinophils (Bld) [#/Vol] 0.0 10*3/uL Normal 0.0-0.45 [facility] Comment on above: Performed By: #### C RP, CK, CREAT, CBC, ADDONUAPLUS, ESR #### [place] [address] [place] #### TERESA, C3, C4 #### [facility] , Eosinophils/100 WBC (Bld) 0.8 % Normal . [facility] Comment on above: Performed By: #### C RP, CK, CREAT, CBC, ADDONUAPLUS, ESR #### [place] [address] [place] #### TERESA, C3, C4 #### [facility] , Erythrocyte distribution width (RBC) [Ratio] 12.9 % Normal 11.9-15.3 [facility] Comment on above: Performed By: #### C RP, CK, CREAT, CBC, ADDONUAPLUS, ESR #### [address] #### TERESA, C3, C4 #### [facility] , Hematocrit (Bld) [Volume fraction] 41.5 % Normal 34.0-46.4 [facility] Comment on above: Performed By: #### C RP, CK, CREAT, CBC, ADDONUAPLUS, ESR #### [address] #### TERESA, C3, C4 #### [facility] , Hemoglobin (Bld) [Mass/Vol] 14.1 g/dL Normal 11.8-15.4 [facility] Comment on above: Performed By: #### C RP, CK, CREAT, CBC, ADDONUAPLUS, ESR #### [address] #### TERESA, C3, C4 #### [facility] , Lymphocytes (Bld) [#/Vol] 2.3 10*3/uL Normal 1.00-4.8 [facility] Comment on above: Performed By: #### C RP, CK, CREAT, CBC, ADDONUAPLUS, ESR #### [place] [address] [place] #### TERESA, C3, C4 #### [facility] , Lymphocytes/100 WBC (Bld) 39.2 % Normal . [facility] Comment on above: Performed By: #### C RP, CK, CREAT, CBC, ADDONUAPLUS, ESR #### [place] [address] [place] #### TERESA, C3, C4 #### [facility] , MCH (RBC) [Entitic mass] 32.2 pg Normal 24.7-34.3 [facility] Comment on above: Performed By: #### C RP, CK, CREAT, CBC, ADDONUAPLUS, ESR #### [address] #### TERESA, C3, C4 #### [facility] , MCV (RBC) [Entitic vol] 95.2 fL Normal 80-100 [facility] Comment on above: Performed By: #### C RP, CK, CREAT, CBC, ADDONUAPLUS, ESR #### [place] [address] [place] #### TERESA, C3, C4 #### [facility] , Mean Corpuscular HGB Conc 33.9 g/dL Normal 32.0-35.0 [facility] Comment on above: Performed By: #### C RP, CK, CREAT, CBC, ADDONUAPLUS, ESR #### [address] #### TERESA, C3, C4 #### [facility] , Monocytes (Bld) [#/Vol] 0.4 10*3/uL Normal 0.0-0.8 [facility] Comment on above: Performed By: #### C RP, CK, CREAT, CBC, ADDONUAPLUS, ESR #### [place] [address] [place] #### TERESA, C3, C4 #### [facility] , Monocytes/100 WBC (Bld) 6.8 % Normal . [facility] Comment on above: Performed By: #### C RP, CK, CREAT, CBC, ADDONUAPLUS, ESR #### [address] #### TERESA, C3, C4 #### [facility] , Neutrophils (Bld) [#/Vol] 3.1 10*3/uL Normal 1.8-7.7 [facility] Comment on above: Performed By: #### C RP, CK, CREAT, CBC, ADDONUAPLUS, ESR #### [address] #### TERESA, C3, C4 #### [facility] , Neutrophils/100 WBC (Bld) 52.4 % Normal . [facility] Comment on above: Performed By: #### C RP, CK, CREAT, CBC, ADDONUAPLUS, ESR #### [address] #### TERESA, C3, C4 #### [facility] , Nucleated RBC/100 WBC (Bld) [Ratio] 0.0 % Normal 0-0.5 [facility] Comment on above: Performed By: #### C RP, CK, CREAT, CBC, ADDONUAPLUS, ESR #### [address] #### TERESA, C3, C4 #### [facility] , Platelet mean volume (Bld) [Entitic vol] 8.4 fL Normal 6.3-10.7 [facility] Comment on above: Performed By: #### C RP, CK, CREAT, CBC, ADDONUAPLUS, ESR #### [address] #### TERESA, C3, C4 #### [facility] , Platelets (Bld) [#/Vol] 259 10*3/uL Normal 150-450 [facility] Comment on above: Performed By: #### C RP, CK, CREAT, CBC, ADDONUAPLUS, ESR #### [place] [address] [place] #### TERESA, C3, C4 #### [facility] , RBC (Bld) [#/Vol] 4.36 10*6/uL Normal 3.60-5.00 [facility] Comment on above: Performed By: #### C RP, CK, CREAT, CBC, ADDONUAPLUS, ESR #### [facility] [address] [place] [address] #### TERESA, C3, C4 #### [facility] , WBC (Bld) [#/Vol] 5.9 10*3/uL Normal 4.5-11.0 [facility] Comment on above: Performed By: #### C RP, CK, CREAT, CBC, ADDONUAPLUS, ESR #### [address] #### TERESA, C3, C4 #### [facility] , Creatine Kinaseon 12-19-2020 CK [Catalytic activity/Vol] 79 U/L Normal 22-269 [facility] Comment on above: Result Comment: PERF ORMED BY: [place] [address] PATHOLOGIST MUCKING MACHINE OPERATOR MARYLU LINARES M.D. Performed By: #### C RP, CK, CREAT, CBC, ADDONUAPLUS, ESR #### [address] #### TERESA, C3, C4 #### [facility] , Creatinineon 12-19-2020 Creatinine [Mass/Vol] 0.82 mg/dL Normal 0.44-1.03 [facility] Comment on above: Performed By: #### C RP, CK, CREAT, CBC, ADDONUAPLUS, ESR #### [place] [address] [place] #### TERESA, C3, C4 #### [facility] , Estimated GFR ( Bebo > 60 Normal [facility] Comment on above: Result Comment: GFR estimated reference range: According to KDOQI guidelines, <60 ml/min/1.73m2 is sufficient to diagnose a patient with chronic kidney disease. Performed By: #### C RP, CK, CREAT, CBC, ADDONUAPLUS, ESR #### [address] #### TERESA, C3, C4 #### [facility] , Estimated GFR (Non- Am > 60 Normal [facility] Comment on above: Performed By: #### C RP, CK, CREAT, CBC, ADDONUAPLUS, ESR #### [address] #### TERESA, C3, C4 #### [facility] , Dipstick and Microscopicon 0 12-19-2020 Appearance (U) Clear Normal Clear [facility] Comment on above: Order Comment: Name Collection Type:: Clean-Voided Midstream Performed By: #### C RP, CK, CREAT, CBC, ADDONUAPLUS, ESR #### [address] #### TERESA, C3, C4 #### [facility] , Bacteria,Urine None Seen Normal None Seen [facility] Comment on above: Order Comment: Name Collection Type:: Clean-Voided Midstream Performed By: #### C RP, CK, CREAT, CBC, ADDONUAPLUS, ESR #### [address] #### TERESA, C3, C4 #### [facility] , Bilirubin,Urine Negative Normal Negative [facility] Comment on above: Order Comment: Name Collection Type:: Clean-Voided Midstream Performed By: #### C RP, CK, CREAT, CBC, ADDONUAPLUS, ESR #### [address] #### TERESA, C3, C4 #### [facility] , Color (U) Yellow Normal Yellow [facility] Comment on above: Order Comment: Name Collection Type:: Clean-Voided Midstream Performed By: #### C RP, CK, CREAT, CBC, ADDONUAPLUS, ESR #### [address] [place] [id number] [place] #### TERESA, C3, C4 #### [facility] , Glucose Ql (U) Normal Normal Normal [facility] Comment on above: Order Comment: Name Collection Type:: Clean-Voided Midstream Performed By: #### C RP, CK, CREAT, CBC, ADDONUAPLUS, ESR #### [address] #### TERESA, C3, C4 #### [facility] , Hyaline Casts,Urine 0-8 Normal 0-8 [facility] Comment on above: Order Comment: Name Collection Type:: Clean-Voided Midstream Result Comment: PERF ORMED BY: [place] [address] PATHOLOGIST MUCKING MACHINE OPERATOR MARYLU LINARES M.D. Performed By: #### C RP, CK, CREAT, CBC, ADDONUAPLUS, ESR #### [address] #### TERESA, C3, C4 #### [facility] , Ketones Ql (U) Negative Normal Negative [facility] Comment on above: Order Comment: Name Collection Type:: Clean-Voided Midstream Performed By: #### C RP, CK, CREAT, CBC, ADDONUAPLUS, ESR #### [address] #### TERESA, C3, C4 #### [facility] , Leukocyte esterase Test strip Ql (U) 1+ High Negative [facility] Comment on above: Order Comment: Name Collection Type:: Clean-Voided Midstream Performed By: #### C RP, CK, CREAT, CBC, ADDONUAPLUS, ESR #### [address] #### TERESA, C3, C4 #### [facility] , Nitrite,Urine Negative Normal Negative [facility] Comment on above: Order Comment: Name Collection Type:: Clean-Voided Midstream Performed By: #### C RP, CK, CREAT, CBC, ADDONUAPLUS, ESR #### [address] #### TERESA, C3, C4 #### [facility] , Occult Blood,Urine Negative Normal Negative [facility] Comment on above: Order Comment: Name Collection Type:: Clean-Voided Midstream Performed By: #### C RP, CK, CREAT, CBC, ADDONUAPLUS, ESR #### [address] #### TERESA, C3, C4 #### [facility] , pH (U) 5.5 [pH] Normal 5.0-9.0 [facility] Comment on above: Order Comment: Name Collection Type:: Clean-Voided Midstream Performed By: #### C RP, CK, CREAT, CBC, ADDONUAPLUS, ESR #### [address] #### TERESA, C3, C4 #### [facility] , Protein,Urine Negative Normal Negative [facility] Comment on above: Order Comment: Name Collection Type:: Clean-Voided Midstream Performed By: #### C RP, CK, CREAT, CBC, ADDONUAPLUS, ESR #### [address] #### TERESA, C3, C4 #### [facility] , RBC,Urine 1-2 Normal 0-4 [facility] Comment on above: Order Comment: Name Collection Type:: Clean-Voided Midstream Performed By: #### C RP, CK, CREAT, CBC, ADDONUAPLUS, ESR #### [address] #### TERESA, C3, C4 #### [facility] , Specificy [place],Urine 1.024 Normal 1.001-1.030 [facility] Comment on above: Order Comment: Name Collection Type:: Clean-Voided Midstream Performed By: #### C RP, CK, CREAT, CBC, ADDONUAPLUS, ESR #### [facility] [address] [place] [address] #### TERESA, C3, C4 #### [facility] , Squamous Epithelial Cell,Urine 0-1 Normal 0-2 [facility] Comment on above: Order Comment: Name Collection Type:: Clean-Voided Midstream Performed By: #### C RP, CK, CREAT, CBC, ADDONUAPLUS, ESR #### [address] #### TERESA, C3, C4 #### [facility] , Urobilinogen,Urine Normal Normal Normal [facility] Comment on above: Order Comment: Name Collection Type:: Clean-Voided Midstream Performed By: #### C RP, CK, CREAT, CBC, ADDONUAPLUS, ESR #### [facility] [address] [place] [address] #### TERESA, C3, C4 #### [facility] , WBC,Urine 3-4 Normal 0-4 [facility] Comment on above: Order Comment: Name Collection Type:: Clean-Voided Midstream Performed By: #### C RP, CK, CREAT, CBC, ADDONUAPLUS, ESR #### [facility] [address] [place] [address] #### TERESA, C3, C4 #### [facility] , Erythrocyte Sedimentation Ra price 12-19-2020 ESR (Bld) [Velocity] 8 mm/h Normal 0-29 [facility] Comment on above: Result Comment: PERF ORMED BY: [place] [address] PATHOLOGIST MUCKING MACHINE OPERATOR MARYLU LINARES M.D. Performed By: #### C RP, CK, CREAT, CBC, ADDONUAPLUS, ESR #### [address] [place] [address] [place] #### TERESA, C3, C4 #### [facility] , Vital Signs Date Time Vital Sign Value Performing Clinician Facility 09-15-2024 13:38-0500 Blood Pressure Location Mohamad Mouchli [facility] 09-15-2024 13:38-0500 Diastolic blood pressure 84 mm[Hg] Mohamad Mouchli [facility] 09-15-2024 13:38-0500 Heart rate 76 /min Mohamad Mouchli [facility] 09-15-2024 13:38-0500 Respiratory rate 16 /min Mohamad Mouchli [facility] 09-15-2024 13:38-0500 Systolic blood pressure 122 mm[Hg] Mohamad Mouchli [facility] 09-06-2024 11:10-0500 Blood Pressure Location Mohamad Mouchli [facility] 09-06-2024 11:10-0500 Diastolic blood pressure 83 mm[Hg] Mohamad Mouchli [facility] 09-06-2024 11:10-0500 Heart rate 55 /min Mohamad Mouchli [facility] 09-06-2024 11:10-0500 Mean blood pressure 98 mm[Hg] Mohamad Mouchli [facility] 09-06-2024 11:10-0500 Respiratory rate 13 /min Mohamad Mouchli [facility] 09-06-2024 11:10-0500 SaO2% (BldA) [Mass fraction] 99 % Mohamad Mouchli [facility] 09-06-2024 11:10-0500 Systolic blood pressure 128 mm[Hg] Mohamad Mouchli [facility] 09-06-2024 10:55-0500 Blood Pressure Location Mohamad Mouchli [facility] 09-06-2024 10:55-0500 Diastolic blood pressure 85 mm[Hg] Mohamad Mouchli [facility] 09-06-2024 10:55-0500 Heart rate 63 /min Mohamad Mouchli [facility] 09-06-2024 10:55-0500 Mean blood pressure 101 mm[Hg] Mohamad Mouchli [facility] 09-06-2024 10:55-0500 Respiratory rate 13 /min Mohamad Mouchli [facility] 09-06-2024 10:55-0500 SaO2% (BldA) [Mass fraction] 97 % Mohamad Mouchli [facility] 09-06-2024 10:55-0500 Systolic blood pressure 132 mm[Hg] Mohamad Mouchli [facility] 09-06-2024 10:50-0500 Blood Pressure Location Mohamad Mouchli [facility] 09-06-2024 10:50-0500 Diastolic blood pressure 78 mm[Hg] Mohamad Mouchli [facility] 09-06-2024 10:50-0500 Heart rate 79 /min Mohamad Mouchli [facility] 09-06-2024 10:50-0500 Mean blood pressure 93 mm[Hg] Mohamad Mouchli [facility] 09-06-2024 10:50-0500 Respiratory rate 19 /min Mohamad Mouchli [facility] 09-06-2024 10:50-0500 SaO2% (BldA) [Mass fraction] 97 % Mohamad Mouchli [facility] 09-06-2024 10:50-0500 Systolic blood pressure 122 mm[Hg] Mohamad Mouchli [facility] 09-06-2024 10:43-0500 Body temperature 97.34 [degF] Mohamad Mouchli [facility] 09-06-2024 10:40-0500 Respiratory rate 20 /min Mohamad Mouchli [facility] 09-06-2024 10:35-0500 Respiratory rate 20 /min Mohamad Mouchli [facility] 09-06-2024 10:30-0500 Respiratory rate 20 /min Mohamad Mouchli [facility] 09-06-2024 10:00-0500 Body temperature 97.7 [degF] Mohamad Mouchli [facility] 07-19-2024 14:09-0400 Blood Pressure Location Mohamad Mouchli [facility] 07-19-2024 14:09-0400 Diastolic blood pressure 77 mm[Hg] Mohamad Mouchli [facility] 07-19-2024 14:09-0400 Heart rate 80 /min Mohamad Mouchli [facility] 07-19-2024 14:09-0400 Respiratory rate 16 /min Mohamad Mouchli [facility] 07-19-2024 14:09-0400 Systolic blood pressure 130 mm[Hg] Al Verduzcojanet [facility] 07-06-2024 15:51-0400 Body temperature 97.81 [degF] CHAD Villegas MD Work Phone: [facility] 07-06-2024 15:51-0400 Body weight 81 kg CHAD Villegas MD Work Phone: [facility] 07-06-2024 15:51-0400 Diastolic blood pressure 87 mm[Hg] CHAD Villegas MD Work Phone: [facility] 07-06-2024 15:51-0400 Heart rate 70 /min CHAD Villegas MD Work Phone: [facility] 07-06-2024 15:51-0400 Respiratory rate 16 /min CHAD Villegas MD Work Phone: [facility] 07-06-2024 15:51-0400 SaO2% (BldA) [Mass fraction] 99 % CHAD Villegas MD Work Phone: [facility] 07-06-2024 15:51-0400 Systolic blood pressure 146 mm[Hg] CHAD Villegas MD Work Phone: [facility] 07-01-2023 16:04-0400 Body temperature 97.2 [degF] CHAD Villegas MD Work Phone: [facility] 07-01-2023 16:04-0400 Body weight 78.02 kg CHAD Villegas MD Work Phone: [facility] 07-01-2023 16:04-0400 Diastolic blood pressure 72 mm[Hg] CHAD Villegas MD Work Phone: [facility] 07-01-2023 16:04-0400 Heart rate 64 /min CHAD Villegas MD Work Phone: [facility] 07-01-2023 16:04-0400 Respiratory rate 16 /min CHAD Villegas MD Work Phone: [facility] 07-01-2023 16:04-0400 SaO2% (BldA) [Mass fraction] 99 % CHAD Villegas MD Work Phone: [facility] 07-01-2023 16:04-0400 Systolic blood pressure 104 mm[Hg] CHAD Villegas MD Work Phone: [facility] 07-01-2022 15:52-0400 Body temperature 96.91 [degF] CHAD Villegas MD Work Phone: [facility] 07-01-2022 15:52-0400 Body weight 81.65 kg CHAD Villegas MD Work Phone: [facility] 07-01-2022 15:52-0400 Diastolic blood pressure 71 mm[Hg] CHAD Villegas MD Work Phone: [facility] 07-01-2022 15:52-0400 Heart rate 60 /min CHAD Villegas MD Work Phone: [facility] 07-01-2022 15:52-0400 Respiratory rate 16 /min CHAD Villegas MD Work Phone: [facility] 07-01-2022 15:52-0400 SaO2% (BldA) [Mass fraction] 96 % CHAD Villegas MD Work Phone: [facility] 07-01-2022 15:52-0400 Systolic blood pressure 124 mm[Hg] CHAD Villegas MD Work Phone: [facility] Encounters Encounter Date Encounter Type Care Provider Facility Start: 10-04-2024 End: 10-04-2024 ambulatory Naomi Lucio Facility:[facility] Start: 10-04-2024 End: 10-04-2024 Patient encounter procedure Naomi Lucio [facility] Start: 09-15-2024 End: 09-15-2024 ambulatory Al Srivastava Daxjanet Facility:[facility] Start: 09-15-2024 End: 09-15-2024 Patient encounter procedure Katyaguadalupe Atif Verduzcojanet [facility] Start: 09-06-2024 End: 09-06-2024 ambulatory Bluchelseaguadalupe MonicaAmanda Staley Facility:[facility] Start: 09-06-2024 End: 09-06-2024 Patient encounter procedure Katyaguadalupe Atif Verduzcojanet [facility] Start: 07-19-2024 End: 07-19-2024 ambulatory Katyaguadalupe MonicaAmanda Daxjanet Facility:[facility] Start: 07-19-2024 End: 07-19-2024 Patient encounter procedure Katyaguadalupe MonicaAmanda Daxjanet [facility] Start: 07-07-2024 End: 07-27-2024 Telephone encounter Patience Villegas MD Work Phone: [facility] Comment on above: ENT Referral Start: 07-06-2024 End: 07-07-2024 ambulatory Patience VILLEGAS Facility:[facility] Start: 07-06-2024 End: 07-07-2024 Patient encounter procedure Patience Villegas MD Work Phone: Radiation Oncology Comment on above: History of thyroid c ancer (Primary Dx) Start: 06-29-2024 End: 06-29-2024 ambulatory Patience VILLEGAS Facility:[facility] Start: 06-04-2024 End: 06-15-2024 Refill Trisha Corbett [facility] Work Phone: [facility] Comment on above: Refill Request (levo thyroxine) Start: 05-25-2024 End: 05-25-2024 ambulatory Naomi Lucio Facility:[facility] Start: 05-25-2024 End: 05-25-2024 Patient encounter procedure Naomi Lucio [facility] Start: 10-03-2023 End: 10-03-2023 ambulatory SELF REFERRAL Facility:[facility] Start: 07-01-2023 End: 07-01-2023 Patient encounter procedure Patience Villegas MD Work Phone: Radiation Oncology Comment on above: History of thyroid c ancer (Primary Dx) Start: 06-18-2023 Telephone encounter Patience Villegas MD Work Phone: Radiation Oncology Comment on above: Orders Start: 05-20-2023 End: 05-20-2023 Patient encounter procedure Naomi Lucio [facility] Start: 04-23-2023 End: 04-23-2023 Lab Drop off Naomi Lucio [facility] Start: 09-13-2022 End: 09-13-2022 Patient encounter procedure Naomi Lucio [facility] Start: 08-02-2022 End: 08-03-[address] ULISES [...] End: 04-16-2022 Patient encounter procedure Naomi Lucio [facility] Start: 02-19-2022 End: 02-19-2022 Patient encounter procedure Naomi Lucio [facility] Start: 09-21-2021 End: 09-22-[address] ULISES SZYMANSKI Facility:[facility] Start: 08-13-[address] ULISES SZYMANSKI Facility :[facility] Procedures Date Procedure Procedure Detail Performing Clinician Start: 09-06-2024 Colonoscopy Al Staley Start: 09-06-2024 Esophagogastroduodenoscopy Al vallecillo Start: 07-01-2022 Adult depression screening assessment CHAD Villegas MD Work Phone: Start: 06-20-2021 Adult depression screening assessment CHAD Villegas MD Work Phone: Start: 03-12-2019 Salpingo-oophorectomy Naomi Lucio Comment on above: bilateral Laparoscopy with ful guration of lesion Naomi Lucio Comment on above: endometriosis Thyroidectomy Naomi Lucio Plan of Treatment Date Care Activity Detail Author Start: 2035 RSV Vaccine (1 - 1-d ose 75+ series) RSV Vaccine (1 - 1-dose 75+ series) [facility] Start: 12-11-2026 Urine microalbumin profile DTaP,Tdap,Td Vaccine (2 - Td or Tdap) [facility] Start: 07-07-2025 End: 07-07-2025 Patient encounter procedure 07/07/2025 1:30 PM EDT Office Visit Radiation Oncology [address] [place] [address] [place] [address] Patience Villegas MD [address] [place] [address] 1 year follow up Radiation Oncology Comment on above: 1 year follow up Start: 06-30-2025 End: 06-30-2025 Patient encounter procedure 06/30/2025 3:45 PM EDT Office Visit [facility] [address] [place] [address] labs [facility] Comment on above: labs Start: 06-22-2025 End: 09-21-2025 Thyroglobulin and Thyrogobulin Ab panel - Serum or Plasma THYROGLOBULIN, SERUM WITH REFLEX TO IA OR LC-MS/MS Lab Routine History of thyroid cancer Expected: 06/22/2025, Expires: 09/21/2025 [facility] Comment on above: Expected: 06/22/2025 , Expires: 09/21/2025 Start: 06-22-2025 End: 09-21-2025 Thyrotropin [Units/volume] in Serum or Plasma THYROID STIMULATING HORMONE Lab Routine History of thyroid cancer Expected: 06/22/2025, Expires: 09/21/2025 [facility] Comment on above: Expected: 06/22/2025 , Expires: 09/21/2025 Start: 06-22-2025 End: 09-21-2025 Thyroxine (T4) [Mass/volume] in Serum or Plasma T4/THYROXINE Lab Routine History of thyroid cancer Expected: 06/22/2025, Expires: 09/21/2025 [facility] Work Phone: Comment on above: Expected: 06/22/2025 , Expires: 09/21/2025 Start: 07-06-2024 End: 07-06-2024 Patient encounter procedure 07/06/2024 4:00 PM EDT Office Visit Radiation Oncology [address] [place] [address] Patience Villegas MD [address] [place] [address] 1 yr Follow Up Radiation Oncology Comment on above: 1 yr Follow Up Start: 06-29-2024 End: 06-29-2024 Patient encounter procedure 06/29/2024 3:45 PM EDT Office Visit [facility] [address] [place] [address] [place] [address] Lab [facility] Comment on above: Lab Start: 06-29-2024 End: 08-29-2024 THYROGLOBULIN BY MASS SPECTROMETRY THYROGLOBULIN BY MASS SPECTROMETRY Lab Routine History of thyroid cancer Expected: 06/29/2024, Expires: 08/29/2024 [facility] Work Phone: Comment on above: Expected: 06/29/2024 , Expires: 08/29/2024 Start: 06-29-2024 End: 08-29-2024 Thyrotropin [Units/volume] in Serum or Plasma TSH BLD Lab Routine History of thyroid cancer Expected: 06/29/2024, Expires: 08/29/2024 [facility] Work Phone: Comment on above: Expected: 06/29/2024 , Expires: 08/29/2024 Start: 06-29-2024 End: 08-29-2024 Thyroxine (T4) [Mass/volume] in Serum or Plasma T4/THYROXINE BLOOD Lab Routine History of thyroid cancer Expected: 06/29/2024, Expires: 08/29/2024 [facility] Work Phone: Comment on above: Expected: 06/29/2024 , Expires: 08/29/2024 Start: 06-13-2024 Covid-19 Vaccine ( season) Covid-19 Vaccine ( season) [facility] Start: 06-13-2024 Covid-19 Vaccine ( season) Covid-19 Vaccine () [facility] Start: 06-13-2024 Influenza vaccination Influenza Vacc ine (#1) [facility] Start: 07-01-2023 Adult depression screening assessment DEPRESSION SCREENING [facility] Start: 06-24-2023 End: 08-24-2023 Thyroglobulin and Thyrogobulin Ab panel - Serum or Plasma THYROGLOBULIN, SERUM WITH REFLEX TO IA OR LC-MS/MS Lab Routine History of thyroid cancer Expected: 06/24/2023, Expires: 08/24/2023 [facility] Work Phone: Comment on above: Expected: 06/24/2023 , Expires: 08/24/2023 Start: 06-24-2023 End: 08-24-2023 Thyrotropin [Units/volume] in Serum or Plasma TSH BLD Lab Routine History of thyroid cancer Expected: 06/24/2023, Expires: 08/24/2023 [facility] Work Phone: Comment on above: Expected: 06/24/2023 , Expires: 08/24/2023 Start: 06-24-2023 End: 08-24-2023 Thyroxine (T4) [Mass/volume] in Serum or Plasma T4/THYROXINE BLOOD Lab Routine History of thyroid cancer Expected: 06/24/2023, Expires: 08/24/2023 [facility] Work Phone: Comment on above: Expected: 06/24/2023 , Expires: 08/24/2023 Start: 06-13-2023 Influenza vaccination [facility] Start: 10-13-2022 DEPRESSION ASSESSMENT DEPRESSION ASS ESSMENT [facility] Start: 07-01-2022 End: 08-31-2022 Thyroglobulin Ab [Units/volume] in Serum or Plasma THYROGLOBULIN AB Lab Routine History of thyroid cancer Expected: 07/01/2022, Expires: 08/31/2022 [facility] Work Phone: Comment on above: Expected: 07/01/2022 , Expires: 08/31/2022 Start: 07-01-2022 End: 08-31-2022 Thyroglobulin and Thyrogobulin Ab panel - Serum or Plasma THYROGLOBULIN BLD Lab Routine History of thyroid cancer Expected: 07/01/2022, Expires: 08/31/2022 [facility] Work Phone: Comment on above: Expected: 07/01/2022 , Expires: 08/31/2022 Start: 07-01-2022 End: 08-31-2022 Thyrotropin [Units/volume] in Serum or Plasma TSH BLD Lab Routine History of thyroid cancer Expected: 07/01/2022, Expires: 08/31/2022 [facility] Work Phone: Comment on above: Expected: 07/01/2022 , Expires: 08/31/2022 Start: 07-01-2022 End: 08-31-2022 Thyroxine (T4) [Mass/volume] in Serum or Plasma T4/THYROXINE BLOOD Lab Routine History of thyroid cancer Expected: 07/01/2022, Expires: 08/31/2022 [facility] Work Phone: Comment on above: Expected: 07/01/2022 , Expires: 08/31/2022 Start: 06-21-2022 End: 08-21-2022 Thyroglobulin and Thyrogobulin Ab panel - Serum or Plasma [facility] Work Phone: Comment on above: Expected: 06/21/2022 , Expires: 08/21/2022 Start: 06-21-2022 End: 08-21-2022 Thyrotropin [Units/volume] in Serum or Plasma [facility] Work Phone: Comment on above: Expected: 06/21/2022 , Expires: 08/21/2022 Start: 06-21-2022 End: 08-21-2022 Thyroxine (T4) [Mass/volume] in Serum or Plasma [facility] Work Phone: Comment on above: Expected: 06/21/2022 , Expires: 08/21/2022 Start: 06-20-2022 Adult depression screening assessment DEPRESSION SCREENING [facility] Start: 06-13-2022 Influenza vaccination INFLUENZA (#1) [facility] Start: 03-08-2022 COVID-19 VACCINE (4 - Booster for Pfizer series) COVID-19 VACCINE (4 - Booster for Pfizer series) [facility] Start: 01-03-2022 COVID-19 VACCINE (4 - Pfizer series) COVID-19 VACCINE (4 - Pfizer series) [facility] Start: 2020 RSV Vaccine (1 - 1-d ose 60+ series) RSV Vaccine (1 - 1-dose 60+ series) [facility] Start: 2010 SHINGRIX VACCINE (1 of 2) SHINGRIX VACCINE (1 of 2) [facility] Start: 2005 COLOGUARD (FIT-DNA) COLOGUARD (FIT-D NA) [facility] Start: 2005 Colonoscopy COLONOSCOPY [facility] Start: 2005 COLORECTAL CANCER SCREENING COLORECTAL CANCER SCREENING [facility] Start: [address] COLONOGRAPHY [facility] Start: 2005 DIABETES SCREEN DIABETES SCREEN [facility] Start: 2005 Diabetes Screening Diabetes Screenin g [facility] Start: 2005 FECAL OCCULT BLOOD FECAL OCCULT BLOO D [facility] Start: 2005 Lipid 1996 panel - S jass or Plasma Lipid Screening [facility] Start: 2005 Lipid panel Lipid Screening [facility] Start: 2005 LIPID SCREEN LIPID SCREEN [facility] Start: 2005 Screening for malign ant neoplasm of colon [facility] Start: 2005 SIGMOIDOSCOPY SIGMOIDOSCOPY [facility] Start: 2000 Mammography [facility] Start: 2000 Screening for malign ant neoplasm of breast Mammogram Screening [facility] Start: 1990 HPV TESTING HPV TESTING [facility] Start: 1981 PAP TESTING PAP TESTING [facility] Start: 1981 Screening for malign ant neoplasm of cervix Cervical Cancer Screening [facility] Start: 1979 Urine microalbumin profile [facility] Start: 1978 Anxiety Screening Anxiety Screening [facility] Start: 1978 Depression Screening Depression Scre ening [facility] Start: 1978 HEPATITIS C SCREENING HEPATITIS C [facility] Start: 1978 Hepatitis C screening Hepatitis C [facility] Start: 1978 HIV SCREENING HIV SCREENING [facility] Start: 1978 HIV screening HIV Screening [facility] Immunizations Immunization Date Immunization Notes Care Provider Fa mihir 08-10-2024 influenza virus vaccine, unspecified formulation Al Staley [facility] 07-03-2023 influenza virus vaccine, unspecified formulation CHAD Villegas MD Work Phone: [facility] 07-14-2022 influenza virus vaccine, unspecified formulation CHAD Villegas MD Work Phone: [facility] 05-09-2022 zoster vaccine recombinant Mohamad Mouchli [facility] 11-08-2021 SARS-CoV-2 mRNA ([id number] ose) vaccine Mohamad Mouchli [facility] Comment on above: Result Comment: 2023: [id number] 11-08-2021 zoster vaccine recombinant Mohamad Mouchli [facility] 07-03-2021 influenza virus vaccine, unspecified formulation Mohamad Mouchli [facility] 02-26-2021 SARS-CoV-2 (COVID-19 ) mRNA BNT-162b2 vax Mohamad Mouchli [facility] 01-17-2021 SARS-CoV-2 (COVID-19 ) mRNA BNT-162b2 vax Mohamad Mouchli [facility] 07-03-2020 influenza virus vaccine, unspecified formulation Mohamad Mouchli [facility] 07-14-2019 influenza virus vaccine, unspecified formulation Mohamad Mouchli [facility] 07-15-2018 influenza virus vaccine, unspecified formulation Mohamad Mouchli [facility] 07-24-2017 influenza virus vaccine, unspecified formulation Mohamad Mouchli [facility] 12-11-2016 tetanus toxoid, reduced diphtheria toxoid, and acellular pertussis vaccine, adsorbed Al Staley [facility] 07-25-2016 influenza virus vaccine, unspecified formulation Katyad Mouchli [facility] 08-04-2015 influenza virus vaccine, unspecified formulation Katyad Krunalli [facility] NEGATED: Highlighted row has not occurred!07-19-2024 influenza virus vaccine, unspecified formulation Al Verduzcouchli [facility] Payers Date Payer Category Payer Unknown [id number] 1960 Unknown [id number] 2.16.84 [id number] 1960 Unknown [id number] 2.16.84 [id number] 1960 Unknown [id number] 2.16.84 [id number] 1960 Unknown [id number] 2.16.84 [id number] 1960 Unknown [id number] 2.16.8 [id number] 1960 Unknown [id number] 2.16.8 [id number] 1960 Unknown [id number] 2.16.8 [id number] 1960 Unknown [id number] 2.16.8 [id number] 1960 Unknown [id number] 2.16.8 [id number] 1960 Unknown [id number] 2.16.8 [id number] 1959 Self-pay [id number] 1959 Unknown [id number] Unknown [id number] [id number] [id number] Social History Date Type Detail Facility Tobacco smoking status Never smoker [facility] Start: 07-01-2022 End: 07-06-2024 Sex Assigned At Female [facility] Tobacco smoking status No Smokin g Status Entered [facility] Start: 05-19-2018 End: 09-15-2024 Tobacco smoking status NHIS Never smoked tobacco [facility] Start: 05-19-2018 End: 07-01-2022 Tobacco use and exposure Smokeless tobacco non-user [facility] Start: 05-18-2019 End: 07-06-2024 Alcohol intake Not Asked [facility] Start: 1960 Sex Assigned At Not on file [facility] Start: 06-11-2022 End: 07-01-2022 Exposure to SARS-CoV-2 (event) Not sure [facility] Tobacco smoking status No Smokin g Status Entered [facility] Start: 07-01-2022 End: 07-06-2024 History of Social function [facility] Adult Depression Screening Assessment 0 [facility] Functional Status Date Assessment Result Facility 09-15-2024 Functional Status N/A [facility] 09-06-2024 Functional Status N/A [facility] 07-19-2024 Functional Status N/A [facility] Clinical Notes 06-21-2022 to 09-06-2024 Note Date & Type Note Facility 09-06-2024 Evaluation + Plan note Extrac wilder from: Title:ANES Post-operative Note---General Author: Dean Tsang MD Date:09/06/24 Plan Transfer/Discharge: Transfer/Discharge Discharge when meets criteria ( To home ). Extracted from: Title:ANES Pre-operative Note 2022 Author:Dean Johnston Date:09/06/24 Plan [place] [employer] (ASA) physical status classification: Class II. Anesthetic Preoperative Plan: Anesthesia General. Extracted from: Title:Colonoscopy h/o polyps no polyps Author:Al Hdz MD Date:09/06/24 Patient: MARTITA MOFFETT Age: 63 years Sex: Female : 1960 Associated Diagnoses: None Author: Al Staley MD Pre-Procedure Procedure Date 09/06/2024 10:44:00 . Procedure Type: Colonoscopy. Procedure provider Performed by Al Staley MD. Current history and physical Documented on chart. Salpingo-oophorectomy ([id number]) on 03/12/2019 at 58 Years. Comments: 03/12/2019 15:08 EDT Deepa Ramirez LPN bilateral Thyroidectomy ([id number]). Laparoscopy with fulguration of lesion ([id number]). Comments: 03/01/2019 7:48 Toshia Neves RN endometriosis. Past Medical History No active or resolved past medical history items have been selected or recorded.. Family History Primary malignant neoplasm of colon Grandparent . Procedure History Salpingo-oophorectomy ([id number]) on 03/12/2019 at 58 Years. Comments: 03/12/2019 15:08 FRANT Deepa Ramirze LPN bilateral Thyroidectomy ([id number]). Laparoscopy with fulguration of lesion ([id number]). Comments: 03/01/2019 7:48 Toshia Neves RN endometriosis. Colorectal neoplasm risk assessment High risk Previous history of polyps. . Informed Consent After discussing the rationale, risks and benefits, and alternatives to this procedure, the patient provided signed consent for the procedure. Pre-procedure diagnosis: History of colon polyps. Medications (Selected) Inpatient Medications Ordered Sodium Chloride 0.9% IV Yomaira 1000 mL 1,000 mL: 1,000 mL, IV, 20 mL/hr, Routine, Start date 09/06/24 6:47:00 EST, 50 hour(s), Total volume (mL): 1,000 Documented Medications Documented Fosamax 70 mg Tab: mg tab(s), Oral, qWeek, Refills(s) 0 Multivitamin, Therapeutic w/ Minerals: 1 tab(s), Oral, Daily, Refill(s) 0, Prophylaxis Protonix: 40 mg, Oral, Daily, Refills(s) 0, Control of stomach acid Synthroid: 112 microgram, Oral, Daily, Refills(s) 0, Thyroid Tylenol PM 500 mg-25 mg Tab: 2 tab(s), Oral, Once a day (at bedtime), Refill(s) 0, Pain Zinc: Refills(s) 0, Prophylaxis Zocor: Oral, qPM, Refills(s) 0, High cholesterol aspirin 81 mg Oral EC Tab: 81 mg = 1 tab(s), Oral, Daily, Refills(s) 0, Prophylaxis cetirizine: 10 mg, Oral, Daily, Refills(s) 0, Allergy symptoms Anticoagulant/antiplatelet None. ASA Classification: Class II. . Monitoring: See anesthesia record. . Procedure The procedure was performed in the hospital. See anesthesia record for sedation given during procedure. The patient was positioned starting in the left lateral decubitus position. Endoscope type used was a pediatric-size. The endoscope was lubricated then introduced through the anus. The scope was advanced to the terminal ileum. No difficulties encountered during the procedure. The bowel preparation quality was good and was adequate (see polyps greater than or equal to 6 millimeters). The patient tolerated the procedure well. Time to Cecum: 4 min Withdrawal time 8 min Last colonoscopy: 5 years ago Findings 1. Small internal hemorrhoids 2. Normal examined colon Post-Procedure Complications: none. Estimated blood loss: none. Specimens: none. Devices/ implants: none left in place. Impression and Plan Internal hemorrhoids Recommendations: Repeat colonoscopy:: In 10 years. Follow-up:: GI clinic as needed. Diet:: Previous. Medication resumption:: Continue current medications, Avoid NSAIDs. Return to activities:: After 24 hours. Education and Follow-up: Counseled: Patient, Family. Addendum by Mani Staley MD on September 06, 2024 10:46 EST Insertion time 5 minutes not 4 minutes Future Appointments Appointment Date:09/15/2024 02:45:00 PM Scheduled Provider:Al Staley MD Location:[facility] Appointment Type:[facility] Follow Up Appointment Date:10/04/2024 08:00:00 AM Scheduled Provider: Location:FT.MAMMOGRAM Appointment Type:MA Screen (FT) Future Scheduled Tests Radiology* MA Mamm Screen w/CAD if perf and 3D Kehinde 10/04/24 [facility] 11-25-2024 Hospital Discharge instructions Patient Education 09/06/2024 10:50:21 Hiatal Hernia Hiatal Hernia A hiatal hernia occurs when part of the stomach slides above the muscle that separates the abdomen from the chest (diaphragm). A person can be born with a hiatal hernia (congenital), or it may develop over time. In almost all cases of hiatal hernia, only the top part of the stomach pushes through the diaphragm. Many people have a hiatal hernia with no symptoms. The larger the hernia, the more likely it is that you will have symptoms. In some cases, a hiatal hernia allows stomach acid to flow back into the tube that carries food from your mouth to your stomach (esophagus). This may cause heartburn symptoms. The development of heartburn symptoms may mean that you have a condition called gastroesophageal reflux disease (GERD). What are the causes? This condition is caused by a weakness in the opening (hiatus) where the esophagus passes through the diaphragm to attach to the upper part of the stomach. A person may be born with a weakness in thehiatus, or a weakness can develop over time. What increases the risk? This condition is more likely to develop in: Older people. Age is a major risk factor for a hiatal hernia, especially if you are over the age of50. women. People who are overweight. People who have frequent constipation. What are the signs or symptoms? Symptoms of this condition usually develop in the form of GERD symptoms. Symptoms include: Heartburn. Upset stomach (indigestion). Trouble swallowing. Coughing or wheezing. Wheezing is making high-pitched whistling sounds when you breathe. Sore throat. Chest pain. Nausea and vomiting. How is this diagnosed? This condition may be diagnosed during testing for GERD. Tests that may be done include: X-rays of your stomach or chest. An upper gastrointestinal (GI) series. This is an X-ray exam of your GI tract that is taken after you swallow a chalky liquid that shows up clearly on the X-ray. Endoscopy. This is a procedure to look into your stomach using a thin, flexible tube that has a tiny camera and light on the end of it. How is this treated? This condition may be treated by: Dietary and lifestyle changes to help reduce GERD symptoms. Medicines. These may include: ?Djgq-nbt-nppxcnh antacids. ?Medicines that make your stomach empty more quickly. ?Medicines that block the production of stomach acid (H2 blockers). ?Stronger medicines to reduce stomach acid (proton pump inhibitors). Surgery to repair the hernia, if other treatments are not helping. If you have no symptoms, you may not need treatment. Follow these instructions at home: Lifestyle and activity Do not use any products that contain nicotine or tobacco. These products include cigarettes, chewing tobacco, and vaping devices, such as e-cigarettes. If you need help quitting, ask your health careprovider. Try to achieve and maintain a healthy body weight. Avoid putting pressure on your abdomen. Anything that puts pressure on your abdomen increases the amount of acid that may be pushed up into your esophagus. ?Avoid bending over, especially after eating. ?Raise the head of your bed by putting blocks under the legs. This keeps your head and esophagus higher than your stomach. ?Do not wear tight clothing around your chest or stomach. ?Try not to strain when having a bowel movement, when urinating, or when lifting heavy objects. Eating and drinking Avoid foods that can worsen GERD symptoms. These may include: ?Fatty foods, like fried foods. ?[place]ent fruits, like oranges or lemon. ?Other foods and drinks that contain acid, like orange juice or tomatoes. ?Spicy food. ?Chocolate. Eat frequent small meals instead of three large meals a day. This helps prevent your stomach from getting too full. ?Eat slowly. ?Do not lie down right after eating. ?Do not eat 1 2 hours before bed. Do not drink beverages with caffeine. These include cola, coffee, cocoa, and tea. Do not drink alcohol. General instructions Take mksb-jqd-zsmxuwk and prescription medicines only as told by your health care provider. Keep all follow-up visits. Your health care provider will want to check that any new prescribed medicines are helping your symptoms. Contact a health care provider if: Your symptoms are not controlled with medicines or lifestyle changes. You are having trouble swallowing. You have coughing or wheezing that will not go away. Your pain is getting worse. Your pain spreads to your arms, neck, jaw, teeth, or back. You feel nauseous or you vomit. Get help right away if: You have shortness of breath. You vomit blood. You have bright red blood in your stools. You have black, tarry stools. These symptoms may be an emergency. Get help right away. Call 911. Do not wait to see if the symptoms will go away. Do not drive yourself to the hospital. Summary A hiatal hernia occurs when part of the stomach slides above the muscle that separates the abdomen from the chest. A person may be born with a weakness in the hiatus, or a weakness can develop over time. Symptoms of a hiatal hernia may include heartburn, trouble swallowing, or sore throat. Management of a hiatal hernia includes eating frequent small meals instead of three large meals a day. Get help right away if you vomit blood, have bright red blood in your stools, or have black, tarry stools. This information is not intended to replace advice given to you by your health care provider. Make sure you discuss any questions you have with your health care provider. Document Revised: 11/26/2022 Document Reviewed: 11/26/2022 [employer] Patient Education 2023 [employer]. 09/06/2024 10:50:15 Endoscopy, Care After Procedure [facility] ([facility]) Endoscopy Care After Procedure Please read the instructions outlined below and refer to this sheet in the next few weeks. These discharge instructions provide you with general information on caring for yourself [facility] Your doctor may also give you specific instructions. While your treatment has been planned according to the most current medical practices available, unavoidable complications occasionally occur. If you have any problems or questions after discharge, please call your doctor. ACTIVITY You may resume your regular activity but move at a slower pace for the next 24 hours. Take frequent rest periods for the next 24 hours. Walking will help expel (get rid of) the air and reduce the bloated feeling in your abdomen. No driving for 24 hours (because of the anesthesia (medicine) used during the test). You may shower. Do not sign any important legal documents or operate any machinery for 24 hours (because of the anesthesia used during the test). NUTRITION Drink plenty of fluids. You may resume your normal diet. Begin with a light meal and progress to your normal diet. Avoid alcoholic beverages for 24 hours or as instructed by your caregiver. MEDICATIONS You may resume your normal medications unless your caregiver tells you otherwise. WHAT YOU CAN EXPECT TODAY You may experience abdominal discomfort such as a feeling of fullness or gas pains. FOLLOW-UP Your doctor will discuss the results of your test with you. SEEK IMMEDIATE MEDICAL ATTENTION IF ANY OF THE FOLLOWING OCCUR: Excessive nausea (feeling sick to your stomach) and/or vomiting. Severe abdominal pain and distention (swelling). Trouble swallowing. Temperature over 100 F (37.8 C). Rectal bleeding or vomiting of blood. Document Released: 05/13/2005 Document Re-Released: 03/23/2007 [employer] Patient Information [place]. 09/06/2024 10:50:04 Colonoscopy, Care After Surgery [facility] ([facility]) Colonoscopy Care After Surgery Please read the instructions outlined below and refer to this sheet in the next few weeks. These discharge instructions provide you with general information on caring for yourself after you leave [facility]. Your doctor may also give you specific instructions. While your treatment has been planned according to the most current medical practices available, unavoidable complications occasionally occur. If you have any problems or questions after discharge, please call your doctor. ACTIVITY You may resume your regular activity, but move at a slower pace for the next 24 hours. Take frequent rest periods for the next 24 hours. Walking will help get rid of the air and reduce the bloated feeling in your abdomen (belly). No driving for 24 hours (because of the anesthesia (medicine) used during the test). You may shower. Do not sign any important legal documents or operate any machinery for 24 hours (because of the anesthesia used during the test). NUTRITION Drink plenty of fluids. You may resume your normal diet as instructed by your doctor. Begin with a light meal and progress to your normal diet. Heavy or fried foods are harder to digestand may make you feel nauseated (sick to your stomach). Avoid alcoholic beverages for 24 hours or as instructed. MEDICATIONS You may resume your normal medications unless your doctor tells you otherwise. WHAT YOU CAN EXPECT TODAY Some feelings of bloating in the abdomen. Passage of more gas than usual. Spotting of blood in your stool or on the toilet paper. FOLLOW-UP Your doctor will discuss the results of your test with you. SEEK IMMEDIATE MEDICAL ATTENTION IF: There is more than a spotting of blood in your stool. There is abdominal distention (your abdomen is swollen). There is vomiting. You have a temperature over 101.5 F. There is abdominal pain or discomfort that is severe or gets worse throughout the day. Follow Up Care 07/19/2024 14:44:28 With:Al Staley Address: [address] [place] [address], [address] [place] [phone] Business (1) When: Unknown [facility] 11-25-2024 NoteProgress Note-Physician Patient: MARTITA MOFFETT Age: 63 years Sex: Female : 1960 Associated Diagnoses: None Author: Dean Tsang MD Postoperative Information Postoperative disposition: Postoperative disposition: To PACU. Optimetrix number: Optimetrix number [id number]. Anesthetic utilized: General. Health Status Allergies: Allergic Reactions (Selected) No Known Allergies Physical Examination Vital Signs 09/06/2024 10:50 EST Heart Rate Monitored 79 bpm Respiratory Rate Monitored 19 br/min Systolic Blood Pressure 122 mmHg Diastolic Blood Pressure 78 mmHg Blood Pressure Location Left arm Mean Arterial Pressure, Cuff 93 mmHg SpO2 97 % 09/06/2024 10:43 EST Temperature Temporal Artery 36.3 DegC Heart Rate Monitored 67 bpm Respiratory Rate Monitored 16 br/min Systolic Blood Pressure 120 mmHg Diastolic Blood Pressure 77 mmHg Blood Pressure Location Left arm Mean Arterial Pressure, Cuff 91 mmHg SpO2 97 % Pain Assessment: Controlled. General: Awake, Appropriate. Respiratory: Adequate air exchange. Cardiovascular: Stable. Neurological Assessment Anesthetic outcome No anesthetic complications noted. Adequate pain relief. Review / Management Condition: Stable. Plan Transfer/Discharge: Transfer/Discharge Discharge when meets criteria ( To home ).[facility]Result Comment: Electronically Signed By: Dean Tsang MD\.br\Date and Time Signed: 09/06/24 11:05 EST 09-06-2024 NoteProgress Note-Physician Patient: MARTITA MOFFETT Age: 63 years Sex: Female : 1960 Associated Diagnoses: None Author: Dean Tsang MD Preoperative Information Anesthesia Preop Info: Time patient last ate or drank 09/06/2024 00:00:00. Anesthesia history: Patient history: None. Family history+: None. Informed consent: Signed by patient. Re-evaluation prior to induction: Initial evaluation reviewed: No significant change. Review of Systems Eye Ear/Nose/Mouth/Throat Respiratory: No shortness of breath, No cough. Cardiovascular: Negative. Musculoskeletal Neurologic Health Status Allergies: Allergic Reactions (Selected) No Known Allergies, Allergies (1) Active Severity Reaction No Known Allergies None Documented Current medications: (Selected) Inpatient Medications Ordered Sodium Chloride 0.9% IV Yomaira 1000 mL 1,000 mL: 1,000 mL, IV, 20 mL/hr, Routine, Start date 09/06/24 6:47:00 EST, 50 hour(s), Total volume (mL): 1,000 Documented Medications Documented Fosamax 70 mg Tab: mg tab(s), Oral, qWeek, Refills(s) 0 Multivitamin, Therapeutic w/ Minerals: 1 tab(s), Oral, Daily, Refill(s) 0, Prophylaxis Protonix: 40 mg, Oral, Daily, Refills(s) 0, Control of stomach acid Synthroid: 112 microgram, Oral, Daily, Refills(s) 0, Thyroid Tylenol PM 500 mg-25 mg Tab: 2 tab(s), Oral, Once a day (at bedtime), Refill(s) 0, Pain Zinc: Refills(s) 0, Prophylaxis Zocor: Oral, qPM, Refills(s) 0, High cholesterol aspirin 81 mg Oral EC Tab: 81 mg = 1 tab(s), Oral, Daily, Refills(s) 0, Prophylaxis cetirizine: 10 mg, Oral, Daily, Refills(s) 0, Allergy symptoms, Home Medications (9) Active aspirin 81 mg Oral EC Tab 81 mg = 1 tab(s), Oral, Daily cetirizine 10 mg, Oral, Daily Fosamax 70 mg Tab , Oral, qWeek Multivitamin, Therapeutic w/ Minerals 1 tab(s), Oral, Daily Protonix 40 mg, Oral, Daily Synthroid 112 microgram, Oral, Daily Tylenol PM 500 mg-25 mg Tab 2 tab(s), Oral, Once a day (at bedtime) Zinc Zocor , Oral, qPM , Medications (1) Active Scheduled: (0) Continuous: (1) Sodium Chloride 0.9% 1,000 mL 1,000 mL, IV, 20 mL/hr PRN: (0) Problem list: All Problems Abdominal pain / SNOMED CT 54645889 / Confirmed Acid reflux / SNOMED CT 094652854 / Confirmed Family hx of colon cancer / SNOMED CT 084058727 / Confirmed Gastroesophageal reflux disease / SNOMED CT 263867603 / Confirmed History of colon polyps / SNOMED CT 3252204748 / Confirmed History of malignant neoplasm of thyroid / SNOMED CT 6658554832 / Confirmed Osteoporosis / SNOMED CT 993201744 / Confirmed Voice hoarseness / SNOMED CT 936374466 / Confirmed Resolved: Thyroid cancer / SNOMED CT 493749571, Active Problems (8) Abdominal pain Acid reflux Family hx of colon cancer Gastroesophageal reflux disease History of colon polyps History of malignant neoplasm of thyroid Osteoporosis Voice hoarseness Histories Past Medical History: No active or resolved past medical history items have been selected or recorded. Family History: Primary malignant neoplasm of colon Grandparent Procedure history: Esophagogastroduodenoscopy ([id number]) on 09/06/2024 at 63 Years. Colonoscopy ([id number]) on 09/06/2024 at 63 Years. Salpingo-oophorectomy ([id number]) on 03/12/2019 at 58 Years. Comments: 03/12/2019 15:08 EDT - Deepa Olivia LPN bilateral Thyroidectomy ([id number]). Laparoscopy with fulguration of lesion ([id number]). Comments: 03/01/2019 7:48 EDT - Toshia Chatterjee RN endometriosis Social History Social & Psychosocial Habits Alcohol 07/19/2024 Risk Assessment: Denies Alcohol Use Substance Abuse 07/19/2024 Risk Assessment: Denies Substance Abuse Tobacco 07/19/2024 Risk Assessment: Denies Tobacco Use 07/19/2024 Tobacco Use: Never (less than 100 in l Smokeless tobacco use: Never . Physical Examination Vital Signs 09/06/2024 10:50 EST Heart Rate Monitored 79 bpm Respiratory Rate Monitored 19 br/min Systolic Blood Pressure 122 mmHg Diastolic Blood Pressure 78 mmHg Blood Pressure Location Left arm Mean Arterial Pressure, Cuff 93 mmHg SpO2 97 % 09/06/2024 10:43 EST Temperature Temporal Artery 36.3 DegC Heart Rate Monitored 67 bpm Respiratory Rate Monitored 16 br/min Systolic Blood Pressure 120 mmHg Diastolic Blood Pressure 77 mmHg Blood Pressure Location Left arm Mean Arterial Pressure, Cuff 91 mmHg SpO2 97 % 09/06/2024 10:40 EST Heart Rate Monitored 71 bpm bpm Respiratory Rate 20 br/min br/min SpO2 97 % % 09/06/2024 10:39 EST Systolic Blood Pressure 120 mmHg mmHg Diastolic Blood Pressure 94 mmHg mmHg 09/06/2024 10:36 EST Systolic Blood Pressure 134 mmHg mmHg Diastolic Blood Pressure 83 mmHg mmHg 09/06/2024 10:35 EST Heart Rate Monitored 68 bpm bpm Respiratory Rate 20 br/min br/min Respiratory Rate Monitored 19 br/min br/min SpO2 100 % % 09/06/2024 10:33 EST Systolic Blood Pressure 165 mmHg mmHg Diastolic (more content not included)...[facility]:Result Comment: Electronically Signed By: Sharan BIRMINGHAM, Dean Glez\.br\Date and Time Signed: 09/06/24 11:04 [id number] NotePatient Education - Text Endoscopy Care After Procedure Please read the instructions outlined below and refer to this sheet in the next few weeks. These discharge instructions provide you with general information on caring for yourself after you leave [facility]. Your doctor may also give you specific instructions. While your treatment has been planned according to the most current medical practices available, unavoidable complications occasionally occur. If you have any problems or questions after discharge, please call your doctor. ACTIVITY ??? You may resume your regular activity but move at a slower pace for the next 24 hours. ??? Take frequent rest periods for the next 24 hours. ??? Walking will help expel (get rid of) the air and reduce the bloated feeling in your abdomen. ??? No driving for 24 hours (because of the anesthesia (medicine) used during the test). ??? You may shower. ??? Do not sign any important legal documents or operate any machinery for 24 hours (because of theanesthesia used during the test). NUTRITION ??? Drink plenty of fluids. ??? You may resume your normal diet. ??? Begin with a light meal and progress to your normal diet. ??? Avoid alcoholic beverages for 24 hours or as instructed by your caregiver. MEDICATIONS ??? You may resume your normal medications unless your caregiver tells you otherwise. WHAT YOU CAN EXPECT TODAY ??? You may experience abdominal discomfort such as a feeling of fullness or ???gas??? pains. FOLLOW-UP ??? Your doctor will discuss the results of your test with you. seek immediate medical attention if any of the following occur: ??? Excessive nausea (feeling sick to your stomach) and/or vomiting. ??? Severe abdominal pain and distention (swelling). ??? Trouble swallowing. ??? Temperature over 100 F (37.8??? C). ??? Rectal bleeding or vomiting of blood. Document Released: 05/13/2005 Document Re-Released: 03/23/2007 [employer]??? Patient Information ???2009 [employer]. Colonoscopy Care After Surgery Please read the instructions outlined below and refer to this sheet in the next few weeks. These discharge instructions provide you with general information on caring for yourself [facility] Your doctor may also give you specific instructions. While your treatment has been planned according to the most current medical practices available, unavoidable complications occasionally occur. If you have any problems or questions after discharge, please call your doctor. ACTIVITY You may resume your regular activity, but move at a slower pace for the next 24 hours. Take frequent rest periods for the next 24 hours. Walking will help get rid of the air and reduce the bloated feeling in your abdomen (belly). No driving for 24 hours (because of the anesthesia (medicine) used during the test). You may shower. Do not sign any important legal documents or operate any machinery for 24 hours (because of the anesthesia used during the test). NUTRITION Drink plenty of fluids. You may resume your normal diet as instructed by your doctor. Begin with a light meal and progress to your normal diet. Heavy or fried foods are harder to digestand may make you feel nauseated (sick to your stomach). Avoid alcoholic beverages for 24 hours or as instructed. MEDICATIONS You may resume your normal medications unless your doctor tells you otherwise. WHAT YOU CAN EXPECT TODAY Some feelings of bloating in the abdomen. Passage of more gas than usual. Spotting of blood in your stool or on the toilet paper. FOLLOW-UP Your doctor will discuss the results of your test with you. SEEK IMMEDIATE MEDICAL ATTENTION IF: There is more than a spotting of blood in your stool. There is abdominal distention (your abdomen is swollen). There is vomiting. You have a temperature over 101.5 F. There is abdominal pain or discomfort that is severe or gets worse throughout the day. Gastroenterology Hiatal Hernia A hiatal hernia occurs when part of the stomach slides above the muscle that separates the abdomen from the chest (diaphragm). A person can be born with a hiatal hernia (congenital), or it may develop over time. In almost all cases of hiatal hernia, only the top part of the stomach pushes through the diaphragm. Many people have a hiatal hernia with no symptoms. The larger the hernia, the more likely it is that you will have symptoms. In some cases, a hiatal hernia allows stomach acid to flow back into the tube that carries food from your mouth to your stomach (esophagus). This may cause heartburn symptoms. The development of heartburn symptoms may mean that you have a condition called gastroesophageal reflux disease (GERD). What are the causes? This condition is caused by a weakness in the opening (hiatus) where the esophagus passes through the diaphragm to attach to the upper part of the stomach. A person may be born with a weaknes (more content not included)... [facility] Telephone encounter Note* Telephone Encounter - Jana France HUC - 07/16/2024 10:23 AM EDT I called and spoke with Dr. Haney' office and the Patient is scheduled on Friday07/26/24 at 240 pm. LUIS Ford [facility]10-04-20[facility] Miscellaneous Notes* Telephone Encounter - Jana France HUC - 07/16/2024 10:23 AM EDT I called and spoke with Dr. Haney' office and the Patient is scheduled on Friday07/26/24 at 240 pm. LUIS Ford * Telephone Encounter - Wendie Mcpherson - 07/07/2024 12:46 PM EDT Records faxed to Dr. Haney. * Telephone Encounter - Jana France HUC - 07/07/2024 10:53 AM EDT I called the Patient today to get her scheduled for her 1 year follow up and labs: Labs- 06/30/2025 F/U- 07/07/[address] Haney' office to get the Patient referred over to them. Teodora Marie- Can you please fax over her records to Dr. Haney' office- . The office stated they will look over her records and then call the Patient in the next day to schedule her. They stated they even have openings as early as next week. I will follow up with his Office to make sure she is scheduled as well. ULIS Ford [facility] Telephone encounter Note * [facility] 07/07/2024 12:46 PM EDT Records faxed to Dr. Haney. [facility] Telephone encounter Note* Telephone Encounter - Jana France HUC - 07/07/2024 10:53 AM EDT I called the Patient today to get her scheduled for her 1 year follow up and labs: Labs- 06/30/2025 F/U- 07/07/[address] Haney' office to get the Patient referred over to them. Teodora Marie- Can you please fax over her records to Dr. Haney' office- . The office stated they will look over her records and then call the Patient in the next day to schedule her. They stated they even have openings as early as next week. I will follow up with his Office to make sure she is scheduled as well. LUIS Ford [facility]09-24-[facility] History of Present illness Narrative* Patience Villegas MD - 07/06/2024 4:00 PM EDT Images from the original note were not included. Radiation Oncology - Follow Up Note PATIENT NAME: Martita Moffett PATIENT DIAGNOSIS: Thyroid cancer INTERVAL HISTORY: Overall doing well. She has had some raspiness to her voice for the last 1 to 2 months. Denies dyspnea. Denies neck pain or dysphagia. Does have some mild seasonal allergies. 06/20/21:Earlier this year patient developed severe recurrent infection with pneumonia hypercoagulability, was inpatient for some time. She has since recovered and is back to work without significant residual issues. LABORATORY: Latest Reference Range & Units 06/13/21 08:11 06/21/22 13:18 06/24/23 15:43 06/29/24 15:54 Thyroglobulin, LC-MS/MS 1.3 - 31.8 ng/mL <0.5 (L) T4 5.5 - 10.2 ug/dL 8.8 9.8 8.2 8.7 TSH 0.270 - 4.200 mIU/L 1.280 0.855 0.345 1.090 Thyroglobulin Ab <14.4 IU/mL <1.0 <1.0 Thyroglobulin 1.6 - 59.9 ng/mL <0.2 (L) <0.2 (L) Thyroglobulin Ab, Serum <4.0 IU/mL <0.9 Thyroglobulin, Serum 1.6 - 50.0 ng/mL <0.1 (L) (L): Data is abnormally low Latest Reference Range & Units 06/13/21 08:11 [...] T4 11.1, TSH 0..146, thyroglobulin < 0.1, anti- thyroglobulin antibody <2 05/22/20: T4 11.0, TSH 0.1.303, thyroglobulin < 0.1, anti-thyroglobulin antibody <2 06/13/21: T4 8.8, TSH 1.280, thyroglobulin < 0.2, anti-thyroglobulin antibody <1.0 ALLERGIES: ALLERGIES No Known Allergies MEDICATIONS: levothyroxine (SYNTHROID) 100 mcg tablet Take 1 tablet by mouth once daily. vitamin D3-vitamin K2 (DOSOKAP) 137.5-200 mcg tab Take by mouth. pantoprazole DR (PROTONIX) 40 mg tablet Take [...] systems is negative. PHYSICAL EXAM: VS: BP 146/87 Pulse 70 Temp 36.6 C (97.8 F) Resp 16 Wt 81 kg (178 lb 9.2 oz) SpO2 99% KPS: 100 General Appearance: Well [...] with repeat thyroglobulin and thyroid function tests. 3. Voice change. Recommend evaluation by ENT. Signed by: Patience Villegas MD CC Dr. Haney Portions of the above note extracted and edited from previous visit as well as active information included in the EMR. documented in this encounterOhio[facility]-2024 NoteHNO ID: [id number] Author: Patience VILLEGAS MD Service: ? Author Type: Physician Type: Progress Notes Filed: 07/07/2024 12:18 Note Text: Radiation Oncology - Follow Up Note PATIENT NAME: Martita Moffett PATIENT DIAGNOSIS: Thyroid cancer INTERVAL HISTORY: Overall doing well. She has had some raspiness to her voice for the last 1 to 2 months. Denies dyspnea. Denies neck pain or dysphagia. Does have some mild seasonal allergies. 06/20/21:Earlier this year patient developed severe recurrent infection with pneumonia hypercoagulability, was inpatient for some time. She has since recovered and is back to work without significant residual issues. LABORATORY: Latest Reference Range AND Units 06/13/21 08:11 06/21/22 13:18 06/24/23 15:43 06/29/24 15:54 Thyroglobulin, LC-MS/MS 1.3 - 31.8 ng/mL <0.5 (L) T4 5.5 - 10.2 ug/dL 8.8 9.8 8.2 8.7 TSH 0.270 - 4.200 mIU/L 1.280 0.855 0.345 1.090 Thyroglobulin Ab <14.4 IU/mL <1.0 <1.0 Thyroglobulin 1.6 - 59.9 ng/mL <0.2 (L) <0.2 (L) Thyroglobulin Ab, Serum <4.0 IU/mL <0.9 Thyroglobulin, Serum 1.6 - 50.0 ng/mL <0.1 (L) (L): Data is abnormally low Latest Reference Range AND Units 06/13/21 08:11 [...] Take 1 tablet by mouth once daily. vitamin D3-vitamin K2 (DOSOKAP) 137.5-200 mcg tab Take by mouth. pantoprazole DR (PROTONIX) 40 mg tablet Take [...] systems is negative. PHYSICAL EXAM: VS: BP 146/87 Pulse 70 Temp 36.6 ?C (97.8 ?F) Resp 16 Wt 81 kg (178 lb 9.2 oz) SpO2 99% KPS: 100 General Appearance: Well [...] with repeat thyroglobulin and thyroid function tests. 3. Voice change. Recommend evaluation by ENT. Signed by: Patience Villegas MD CC Dr. Haney Portions of the above note extracted and edited from previous visit as well as active information included in the EMR.[facility]09-19-2023 History of Present illness Narrative* Patience Villegas MD - 07/01/2023 4:00 PM EDT Images from the original note were not [...] T4 11.1, TSH 0..146, thyroglobulin < 0.1, anti- thyroglobulin antibody <2 05/22/20: T4 11.0, TSH 0.1.303, [...] included in the EMR. documented [facility] Miscellaneous Notes* Telephone Encounter - Kati Nolen LPN - 06/18/2023 9:42 AM EDT Please sign pended lab orders for upcoming yearly follow up. Kati Nolen LPN documented in this encounterOhio[facility]07-12-[facility]23 Evaluation + Plan note Diagnostic Tests Pending * PAP [id number] 04/23/23 [facility]09-19-2022 History of Present illness Narrative* Patience Villegas MD - 07/01/2022 3:52 PM EDT Images from the original note were not [...] T4 11.1, TSH 0..146, thyroglobulin < 0.1, anti- thyroglobulin antibody <2 05/22/20: T4 11.0, TSH 0.1.303, [...] included in the EMR. documented in this encounterOhio[facility]09-13-2022 Miscellaneous Notes* Telephone Encounter - Carola Sinha - 06/25/2022 2:34 PM EDT R/s appointment to that date and time. * Telephone Encounter - Janie Sellers RN - 06/25/2022 2:32 PM EDT Pt was contacted due to TG not resulted yet. She would like to reschedule to next week to have all results at visit. PSS- pt needs 4pm appt. Please move on epic from today to Sunday 07/01 at 4pm. Thank you Janie Sellers RN documented in this encounterOhio[facility]09-09-2022 Miscellaneous Notes* Telephone Encounter - Janie Sellers RN - 06/21/2022 12:13 PM EDT Please sign orders for today. Janie Sellers RN documented [facility] + Plan note No data available for this section [facility] Future Appointments Appointment Date:08/03/2022 07:15:00 AM Scheduled Provider: Location:.[facility] Appointment Type:MA Screen (FT) Future Scheduled Tests Radiology* MA Mamm Screen w/CAD if perf and 3D Kehinde 08/03/22 [facility] Future Appointments Appointment Date:10/04/2024 08:00:00 AM Scheduled Provider: Location:.[facility] Appointment Type:MA Screen (FT) Future Scheduled Tests Radiology* MA Mamm Screen w/CAD if perf and 3D Kehinde 10/04/24 [facility] Evaluation + Plan note Future Appointments Appointment Date:09/06/2024 10:30:00 AM Scheduled Provider: Location:[facility] Surgical Services Appointment Type:Surgery FT Appointment Date:09/15/2024 02:45:00 PM Scheduled Provider:Al Staley MD Location:[facility] Dig[facility]ive Health Appointment Type:BAD[facility] Follow Up Appointment Date:10/04/2024 08:00:00 AM Scheduled Provider: Location:.[facility] Appointment Type:MA Screen (FT) Future Scheduled Tests Radiology* MA Mamm Screen w/CAD if perf and 3D Kehinde 10/04/24 [facility] Digestive Health evaluation note* Diagnosis History of thyroid cancer- Primary Personal history of malignant neoplasm of thyroid documented in this encounter [facility] note* Diagnosis History of thyroid cancer- Primary Personal history of malignant neoplasm of thyroid documented in this encounter [facility] note* Diagnosis History of thyroid cancer- Primary Personal history of malignant neoplasm of thyroid documented in this encounter [facility] note* Diagnosis History of thyroid cancer- Primary Personal history of malignant neoplasm of thyroid documented in this encounter [facility] Discharge instructions No data available for this section [facility] No data available for this section [facility] Summary Purpose Family History No Family History Records FoundNo Family History Records Found No data available for this section No Family History Records Found No data available for this section No Family History Records Found No data available for this section No Family History Records Found No data available for this section No Family History Records Found No data available for this section No Family History Records FoundNo Family History Records Found Advance Directives No Advanced Directives Records FoundNo Advanced Directives Records FoundNo Advanced Directives Records FoundNo Advanced Directives Records FoundNo Advanced Directives Records FoundNo Advanced Directives Records FoundNo Advanced Directives Records FoundNo Advanced Directives Records Found Additional Source Comments INFORMATION SOURCE (unrecogn ized section and content) DATE CREATED AUTHOR 10/01/2021 [facility] DATE CREATED AUTHOR AUTHOR'S ORGANIZ ATION 08/08/2022 [facility] DATE CREATED AUTHOR AUTHOR'S ORGANIZ ATION 05/27/2024 [facility] DATE CREATED AUTHOR AUTHOR'S ORGANIZ ATION 07/29/2024 [facility] DATE CREATED AUTHOR AUTHOR'S ORGANIZ ATION 09/11/2024 [facility] DATE CREATED AUTHOR AUTHOR'S ORGANIZ ATION 09/24/2024 [facility] DATE CREATED AUTHOR AUTHOR'S ORGANIZ ATION 10/11/2024 [facility] DATE CREATED AUTHOR AUTHOR'S ORGANIZ ATION 11/26/2024 [facility] Care Team (unrecognized sect ion and content) Real Estate Asset Manager Relationship Specialty Start Date End Date Ulises Szymanski MD PCP - General Family Practice 01/29/12 Real Estate Asset Manager Relationship Specialty Start Date End Date Ulises Szymanski MD PCP - General Family Practice 01/29/12 Real Estate Asset Manager Relationship Specialty Start Date End Date Ulises Szymanski MD PCP - General Family Medicine 01/29/12 Real Estate Asset Manager Relationship Specialty Start Date End Date Ulises Szymanski MD PCP - General Family Medicine 01/29/12 Real Estate Asset Manager Relationship Specialty Start Date End Date Ulises Szymanski MD PCP - General Family Medicine 01/29/12 Real Estate Asset Manager Relationship Specialty Start Date End Date Ulises Szymanski MD PCP - General Family Medicine 01/29/12 Source Comments (unrecognize d section and content) In the event this informatio n is protected by the Federal Confidentiality of Alcohol and Drug Abuse Patient Records regulations: The Federal rules restrict any use of the information to criminally investigate or prosecute any alcohol or drug abuse patient.[facility] HospitalIn the event this information is protected by the Federal Confidentiality of Alcohol and Drug Abuse Patient Records regulations: The Federal rules restrict any use of the information to criminally investigate or prosecute any alcohol or drug abuse patient.[facility] HospitalIn the event this information is protected by the Federal Confidentiality of Alcohol and Drug Abuse Patient Records regulations: The Federal rules restrict any use of the information to criminally investigate or prosecute any alcohol or drug abuse patient.[facility] HospitalIn the event this information is protected by the Federal Confidentiality of Alcohol and Drug Abuse Patient Records regulations: The Federal rules restrict any use of the information to criminally investigate or prosecute any alcohol or drug abuse patient.[facility] HospitalIn the event this information is protected by the Federal Confidentiality of Alcohol and Drug Abuse Patient Records regulations: The Federal rules restrict any use of the information to criminally investigate or prosecute any alcohol or drug abuse patient.[facility] HospitalIn the event this information is protected by the Federal Confidentiality of Alcohol and Drug Abuse Patient Records regulations: The Federal rules restrict any use of the information to criminally investigate or prosecute any alcohol or drug abuse patient.[facility] HospitalIn the event this information is protected by the Federal Confidentiality of Alcohol and Drug Abuse Patient Records regulations: The Federal rules restrict any use of the information to criminally investigate or prosecute any alcohol or drug abuse patient.[facility] HospitalIn the event this information is protected by the Federal Confidentiality of Alcohol and Drug Abuse Patient Records regulations: The Federal rules restrict any use of the information to criminally investigate or prosecute any alcohol or drug abuse patient.[facility] Reason for Visit (unrecogniz ed section and content) Reason Comments Lab Orders Reason Comments Future Appointment Reason Comments Orders Reason Comments Thyroid Cancer Reason Onset Date Comments Refill Request 06/04/2024 levothyroxine Reason Comments ENT Referral FOR RECORDS PERTAINING TO PATIENTS WHO ARE [...] BE BASED ON THE PRIMARY CLINICAL RECORDS. [facility]. provides no warranty or guarantee of the accuracy or completeness of information in this document.
--- NOTE | 2025-01-18 03:23 | ED_ITS ---
HPI - Abdominal Pain General Chief Complaint: Abdominal Pain Stated Complaint: ABDOMINAL PAIN Time Seen by Provider: 01/18/25 03:19 Source: patient Mode of arrival: walk-in Limitations: no limitations History of Present Illness HPI narrative: RLQ pain started around 7pm. no vomiting or urinary symptoms. No flank pain. last meal 6pm yesterday. No injury. No vaginal bleeding . Pain increases with change in position. Was definitely noticeable during ride to the hospital Related Data Home Medications ?Medication ?Instructions ?Recorded ?Confirmed alendronate 70 mg tablet mg PO 01/18/25 aspirin 81 mg chewable tablet 81 mg PO DAILY 01/18/25 01/18/25 (Aspirin Childrens) cetirizine 10 mg tablet (24Hour 10 mg PO DAILY PRN allergy symptoms 01/18/25 01/18/25 Allergy) cholecalciferol (vit D3) 137.5 mcg 1 tab PO DAILY 01/18/25 01/18/25 (5,500 unit)-vit K2 200 mcg tablet (DosoKap) levothyroxine 100 mcg tablet mcg 01/18/25 (Synthroid) pantoprazole 20 mg tablet,delayed 40 mg PO DAILY 01/18/25 01/18/25 release (Protonix) simvastatin 20 mg tablet mg 01/18/25 Allergies Allergy/AdvReac Type Severity Reaction Status Date / Time No Known Drug Allergies Allergy Verified 01/18/25 03:06 Review of Systems ROS Status of ROS 10 or more systems reviewed and unremark able except as noted in history and below PFSH PFSH Social History Little interest or pleasure in doing things: not at all Feeling down, depressed, or hopeless: not at all Exam Constitutional Vital Signs, click to edit/add: Last Vital Signs Temp 98.6 F 01/18/25 03:02 Pulse 76 01/18/25 05:46 Resp 18 01/18/25 05:46 BP 132/76 01/18/25 05:46 Pulse Ox 96 01/18/25 05:46 O2 Del Method Room Air 01/18/25 05:46 Common normals: no apparent distress, average body habitus, oriented x3, no limitations, healthy appearing, alert and well nourished [facility] Common normals: normocephalic and head/scalp atraumatic Eye Common normals: PERRL, EOMs intact bilaterally and conjunctivae normal Respiratory Common normals: normal respiratory effort, no retractions, no use of accessory muscles and clear to auscultation bilaterally Cardio Common normals: regular rate, regular rhythm, S1 normal heart sound and S2 normal heart sound GI Other: RLQ focal tenderness. neg guarding Extremity Common normals: normal to inspection and full ROM Neuro Common normals: oriented x3, CN's II-XII intact bilaterally, moves all extremities and no focal motor deficits Psych Appearance: grossly normal Course Vital Signs Vital signs: Vital Signs Temperature 98.6 F 01/18/25 03:02 Pulse Rate 73 01/18/25 03:02 Respiratory Rate 18 01/18/25 03:02 Blood Pressure 144/86 H 01/18/25 03:02 Pulse Oximetry 98 01/18/25 03:02 Oxygen Delivery Method Room Air 01/18/25 03:02 Temperature 98.6 F 01/18/25 03:02 Pulse Rate 76 01/18/25 05:46 Respiratory Rate 18 01/18/25 05:46 Blood Pressure 132/76 01/18/25 05:46 Pulse Oximetry 96 01/18/25 05:46 Oxygen Delivery Method Room Air 01/18/25 05:46 MDM - Abdominal Pain MDM Narrative Medical decision making narrative: patient presents with RLQ pain that started around 7pm yesterday. last meal around 6pm. No nausea or fever. Exam with focal tenderness RLQ. CT with findings of acute appendicitis. No abscess. Discussed with Surgeon at [facility] and he has accepted the patient in transfer. Zosyn ordered. Patient and her informed of the above. They are agreeable to the transfer Lab Data Labs: Lab Results 01/18/25 01/18/25 Range/Units 03:10 03:15 WBC 15.9 H (4.0-11.0) 10^3/uL RBC 4.44 (4.20-5.40) 10^6/uL Hgb 14.1 (12.0-16.0) g/dL Hct 41.6 (36.0-48.0) % MCV 93.7 (81.0-99.0) fL MCH 31.8 (26.7-34.0) pg MCHC 33.9 (29.9-35.2) g/dL RDW 12.6 (11.0-15.0) % Plt Count 227 (150-450) 10^3/uL MPV 9.6 (9.5-13.5) fL Neut % (Auto) 72.2 (43.0-75.0) % Lymph % (Auto) 19.5 L (20.5-60.0) % [place] % (Auto) 7.2 (1.7-12.0) % Eos % (Auto) 0.6 L (0.9-7.0) % Baso % (Auto) 0.4 (0.2-2.0) % Neut # (Auto) 11.5 H (1.4-6.5) 10^3/uL Lymph # (Auto) 3.1 (1.2-3.8) 10^3/uL [place] # (Auto) 1.2 H (0.3-0.8) 10^3/uL Eos # (Auto) 0.1 (0.0-0.7) 10^3/uL Baso # (Auto) 0.1 (0.0-0.1) 10^3/uL Abs Immat Gran (auto) 0.02 (0.00-0.03) 10^3/uL Imm/Tot Granulo (auto) 0.1 (0.0-0.5) % Sodium 139 (136-145) mmol/L Potassium 3.8 (3.5-5.1) mmol/L Chloride 103 (98-107) mmol/L Carbon Dioxide 29.3 (21.0-32.0) mmol/L Anion Gap 10.5 BUN 21.0 H (7.0-18.0) mg/dL Creatinine 0.99 (0.55-1.02) mg/dL Est GFR ( Amer) >60 (>=60 mL/min/1.73m^2) Est GFR (Non-Af Amer) 56 L (>=60 mL/min/1.73m^2) BUN/Creatinine Ratio 21.2 Glucose 95 (74-106) mg/dL Lactate 0.9 (0.4-2.0) mmol/L Calcium 10.0 (8.5-10.1) mg/dL Total Bilirubin 0.4 (0.2-1.0) mg/dL AST 15 (15-37) U/L ALT 27 (14-59) U/L Alkaline Phosphatase 64 (46-116) U/L Total Protein 7.2 (6.4-8.2) g/dL Albumin 3.9 (3.4-5.0) g/dL Globulin 3.3 g/dL Albumin/Globulin Ratio 1.2 Lipase 31.0 (16.0-77.0) U/L Urine Color Lt. yellow (YELLOW) Urine Clarity Clear (CLEAR) Urine pH 6.5 (5.0-9.0) Ur Specific [place] 1.015 (1.005-1.025) Urine Protein Negative (NEG/TRACE) mg/dL Urine Glucose (UA) Negative (NEGATIVE) mg/dL Urine Ketones Negative (NEGATIVE) mg/dL Urine Occult Blood Trace-i (NEGATIVE) Urine Nitrite Negative (NEGATIVE) Urine Bilirubin Negative (NEGATIVE) Urine Urobilinogen 0.2 (0.2-1.0) EU/dL Ur Leukocyte Esterase Trace A (NEGATIVE) Urine RBC None seen (0-2) #/HPF Urine WBC 2-5 A (NONE SEEN) #/HPF Ur Squamous Epith Cells Rare (NONE/RARE) #/LPF Urine Crystals None seen (None Seen) #/HPF Urine Bacteria None seen (NONE SEEN) #/HPF Urine Casts None seen (NONE SEEN) #/LPF Urine Mucus None seen (NONE SEEN) Ur Culture Indicated? No Discharge Plan Discharge Chief Complaint: Abdominal Pain Clinical Impression: Acute appendicitis Patient Disposition: [facility] Discharge Date/Time: 01/18/25 06:14
[2025-01-18 03:30] LABS: Hematocrit 41.6 % (36.0-48.0); Hemoglobin 14.1 g/dL (12.0-16.0); Mean Corpuscular HGB Conc 33.9 g/dL (29.9-35.2); Mean Corpuscular Hemoglobin 31.8 pg (26.7-34.0); Mean Corpuscular Volume 93.7 fL (81.0-99.0); Red Blood Count 4.44 10^6/uL (4.20-5.40); White Blood Count 15.9 10^3/uL (4.0-11.0)
[2025-01-18 03:31] LABS: Basophils Absolute Auto 0.1 10^3/uL (0.0-0.1); Basophils Percent Auto 0.4 % (0.2-2.0); Eosinophils Absolute Auto 0.1 10^3/uL (0.0-0.7); Eosinophils Percent Auto 0.6 % (0.9-7.0); Immature Granulocytes Abs Auto 0.02 10^3/uL (0.00-0.03); Immature Granulocytes Pct Auto 0.1 % (0.0-0.5); Lymphocytes Absolute Auto 3.1 10^3/uL (1.2-3.8); Lymphocytes Percent Auto 19.5 % (20.5-60.0); Mean Platelet Volume 9.6 fL (9.5-13.5); Monocytes Absolute Auto 1.2 10^3/uL (0.3-0.8); Monocytes Percent Auto 7.2 % (1.7-12.0); Neutrophils Absolute Auto 11.5 10^3/uL (1.4-6.5); Neutrophils Percent Auto 72.2 % (43.0-75.0); Platelet Count 227 10^3/uL (150-450); Red Cell Distribution Width 12.6 % (11.0-15.0)
[2025-01-18 03:31] LABS: Bilirubin Urine NEGATIVE (NEGATIVE); Blood Urine TRACE-I (NEGATIVE); Clarity Urine CLEAR (CLEAR); Color Urine LT. YELLOW (YELLOW); Glucose Urine UA NEGATIVE (NEGATIVE); Ketones Urine NEGATIVE (NEGATIVE); Leukocyte Esterase Urine TRACE (NEGATIVE); Nitrite Urine NEGATIVE (NEGATIVE); Protein Urine NEGATIVE (NEG/TRACE); Specific Gravity Urine 1.015 (1.005-1.025); Urobilinogen Urine 0.2 EU/dL (0.2-1.0); pH Urine 6.5 (5.0-9.0)
[2025-01-18 03:37] LABS: Bacteria Urine NONE SEEN #/HPF (NONE SEEN); Mucus Urine NONE SEEN (NONE SEEN); RBC Urine NONE SEEN #/HPF (0-2)
[2025-01-18 03:38] LABS: Cast Seen? NONE SEEN #/LPF (NONE SEEN); Crystals Seen? None Seen #/HPF (None Seen); Squamous Epithelial Cell Urine RARE #/LPF (NONE/RARE); Urine Culture Indicated NO
[2025-01-18 03:40] LABS: Alanine Aminotransferase 27 U/L (14-59); Albumin Globulin Ratio 1.2; Albumin Level 3.9 g/dL (3.4-5.0); Alkaline Phosphatase 64 U/L (46-116); Anion Gap 10.5; Aspartate Amino Transferase 15 U/L (15-37); BUN Creatinine Ratio 21.2; Bilirubin Total 0.4 mg/dL (0.2-1.0); Carbon Dioxide 29.3 mmol/L (21.0-32.0); Chloride 103 mmol/L (98-107); Estimated GFR (African America >60 (>=60 mL/min/1.73m^2); Estimated GFR (Non-African Ame 56 (>=60 mL/min/1.73m^2); Globulin 3.3 g/dL; Glucose 95 mg/dL (74-106); Potassium 3.8 mmol/L (3.5-5.1); Sodium 139 mmol/L (136-145); Total Protein 7.2 g/dL (6.4-8.2)
[2025-01-18 03:43] LABS: Lactate/Lactic Acid 0.9 mmol/L (0.4-2.0)
[2025-01-18] MEDS: 0.9 % SODIUM CHLORIDE 1,000 ML 999 ML IV (04:00)
[2025-01-18] MEDS: PIPERACILLIN SODIUM/TAZOBACTAM 3.375 GM in 0.9 % SODIUM CHLORIDE 50 ML IV (05:30)
[2025-01-18 05:46] VITALS: BP 132/76; PULSE 76; O2SAT 96
== END 2025-01-18 06:14 | disposition short-term general hospital (02) ==
PROVIDERS: Emergency Provider Internal Medicine; PCP Family Medicine
DX: K35.80 Unspecified acute appendicitis (principal)
CPT/HCPCS: 36415; 74177; 80053; 81001; 83605; 83690; 85025; 96365; 99285; J2543; Q9967

== ENCOUNTER 2025-04-22 13:21 | Outpatient (OUT) | payer OTHER, SELFPAY ==
--- OUTSIDE RECORDS SUMMARY | 2025-03-22 09:44 | XMS_ITS ---
Author Organization [facility] in [place] Address [address] [place] [address] Care Team Providers Care Crate Builder Name Role Phone George Szymanski Primary Care Provider REASON FOR VISIT protonix Encounters Encounter Location Date Provider Diagnosis [facility] [address] [facility] [place] [address] 03/22/2025 George Szymanski Plan Of Treatment No Information Progress Notes * Martita MOFFETT LDOB: (64 yo F)Acc No.[id number]:03/22/2025 Patient: Diogo PALAFOXMartita :1960 A ge:64 Y S ex:Female Address:[address] [place] [id number] * true * Date: Generated for Chucki krupa/Kin/eTransmitting on: 0 04/22/2025 01:24 PM EDT
--- OUTSIDE RECORDS SUMMARY | 2025-03-25 07:49 | XMS_ITS ---
Author Organization [facility] in [place] Address [address] [place] [address] Care Team Providers Care Commutator Presser Name Role Phone George Szymanski Primary Care Provider REASON FOR VISIT Still not better Medications Medication SIG (Take, Route, Fr equency, Duration) Notes Start Date End Date Status Levsin/SL 0.125 MG 1 tablet under the t ongue and allow to dissolve as needed Sublingual QID for 8 days 03/25/2025 Active Encounters Encounter Location Date Provider Diagnosis [facility] [address] [place] [address] 03/25/2025 George Szymanski Abdominal pain R10.9 Assessments Encounter Date Diagnosis (ICD Code) Assessment Notes Treatment Notes Treatment Clinical Notes Section Notes 03/25/2025 Abdominal pain (ICD-10 - R10.9) Plan Of Treatment Medication Medication Name Sig Start Date Stop Date Notes Levsin/SL 0.125 MG 1 tablet under the t ongue and allow to dissolve as needed Sublingual QID for 8 days 03/25/2025 Pending Test Test Name Order Date CT ABD and PELV W CON 03/25/2025 Progress Notes * Martita MOFFETT LDOB: (64 yo F)Acc No.[id number]:03/25/2025 Patient: Diogo APLAFOXMartita :1960 A ge:64 Y S ex:Female Address:[address] [place] [id number] * Refills Start Levsin/SL Tablet Sublingual, 0.125 MG, Sublingual, 30 Tablet, 1 tablet under the tongue and allow to dissolve as needed, QID, 8 days, Refills=0 Subjective: * Chief Complaints: * S till not better * Medical History: * Surgical History: * Hospitalization/Major Diagno stic Procedure: * Medications: Objective: * Vitals: * Physical Examination: Assessment: * Assessment: 1. A bdominal pain - R10.9 (Primary) Plan: * Treatment: 2. O thers Start Levsin/SL Tablet Sublingual, 0.125 MG, 1 tablet under the tongue and allow to dissolve as needed, Sublingual, QID, 8 days, 30 Tablet, Refills 0. * Procedure Codes: * true * Date: Generated for Dania gentile/Kin/Nikolassmitting on: 0 04/22/2025 01:24 PM EDT
--- OUTSIDE RECORDS SUMMARY | 2025-04-22 09:03 | XMS_ITS ---
Author Organization [facility] in [place] Address [address] [place] [address] Care Team Providers Care Patient Account Liaison Name Role Phone George Szymanski Primary Care Provider [phone] REASON FOR VISIT CREAT ORDER Encounters Encounter Location Date Provider Diagnosis [facility] [address] [place] [address] 04/22/2025 George Dickprabhakar Encounter for other preprocedural examination Z01.818 Assessments Encounter Date Diagnosis (ICD Code) Assessment Notes Treatment Notes Treatment Clinical Notes Section Notes 04/22/2025 Encounter for other preprocedural examination (ICD-10 - Z01.818) Plan Of Treatment Pending Test Test Name Order Date CREATININE 04/22/2025 Progress Notes * Martita MOFFETT LDOB: (64 yo F)Acc No.[id number]:04/22/2025 UNLOCKED PROGRESS NOTE Patient: Martita NAJERA :1960 A ge:64 Y S ex:Female Address:[address] [place] [id number] Subjective: * Chief Complaints: * C REAT ORDER * Medical History: * Surgical History: * Hospitalization/Major Diagno stic Procedure: * Medications: Objective: * Vitals: * Physical Examination: Assessment: * Assessment: 1. E ncounter for other preprocedural examination - Z01.818 (Primary) Plan: * Treatment: * Procedure Codes: * * Date:
--- OUTSIDE RECORDS SUMMARY | 2025-04-22 13:24 | XMS_ITS | Clinical Summary ---
Author Organization [facility] Address [address] [place] [phone] Care Team Providers Care Winch Truck Operator Name Role Phone Unavailable Primary Care Provider Unavailabl e Social History Tobacco Use Types Packs/Day Years Used Date Smoking Tobacco: Never Assessed Comments Unknown Sex and Gender Information Value Date Recorded Sex Assigned at Not on file Legal Sex Female 7:58 AM EDT Gender Identity Not on file Sexual Orientation Not on file Plan of Treatment Health Maintenance Due Date Last Done Comments HEPATITIS C VIRUS SCREENING 1960 TETANUS 1960 HIV SCREENING DISCUSSION 1975 TDAP (ADULT) 1979 CERVICAL CANCER SCREENING DISCUSSION 1981 LIPID SCREENING 2000 MAMMOGRAM SCREENING DISCUSSION 2000 COLORECTAL CANCER SCREENING DISCUSSION 2005 PNEUMOCOCCAL VACCINE SERIES (1 of 1 - PCV) 2010 ZOSTER (SHINGLES) VACCINE (1 of 2) 2010 COVID-19 VACCINE (2023-2 5 season) 2024 INFLUENZA VACCINE (Season Ended) 2025 RSV VACCINE (1 - 1-dose 75+ series) 2035 HEP B VACCINE Aged Out No longer cecily carolina based on patient's age to complete this topic Insurance MMO
--- OUTSIDE RECORDS SUMMARY | 2025-04-22 13:24 | XMS_ITS | Patient Health Record ---
Author Organization The [facility] in [place] Address [address] [place] [address] Care Team Providers Care Failure Analysis Technician Name Role Phone George Szymanski Primary Care Provider Allergies No Known Allergies Results Component Value Reference Range Notes COVID-19, Flu A+B IH Reviewed date:01/18/2025 03:25:19 PM Interpretation: Performing Lab: Notes/Report: COVID - FLU A + FLU B - Control + CBC AUTO DIFF Reviewed date:05/30/2024 05:11:55 PM Interpretation: Performing Lab: Notes/Report: [facility] , White Blood Count 7.5 4.0-11.0 10 3/uL Red Blood Count 4.48 4.20-5.40 10 6/uL Hemoglobin 14.3 12.0-16.0 g/dL Hematocrit 42.5 36.0-48.0 % Mean Corpuscular Volume 94.9 81.0-99.0 fL Mean Corpuscular Hemoglobin 31.9 26.7-34.0 pg Mean Corpuscular HGB Conc 33.6 29.9-35.2 g/dL Red Cell Distribution Width 12.8 11.0-15.0 % Platelet Count 250 150-450 10 3/uL Mean Platelet Volume 11.4 9.5-13.5 fL Neutrophils Percent Auto 51.4 43.0-75.0 % Lymphocytes Percent Auto 36.5 20.5-60.0 % Monocytes Percent Auto 9.7 1.7-12.0 % Eosinophils Percent Auto 1.6 0.9-7.0 % Basophils Percent Auto 0.7 0.2-2.0 % Immature Granulocytes Pct Auto 0.1 0.0-0.5 % Neutrophils Absolute Auto 3.9 1.4-6.5 10 3/uL Lymphocytes Absolute Auto 2.7 1.2-3.8 10 3/uL Monocytes Absolute Auto 0.7 0.3-0.8 10 3/uL Eosinophils Absolute Auto 0.1 0.0-0.7 10 3/uL Basophils Absolute Auto 0.1 0.0-0.1 10 3/uL Immature Granulocytes Abs Auto 0.01 0.00-0.03 10 3/uL Performing Lab: see note ML - [facility] LB UA Micro, reflex to culture Reviewed date:01/18/2025 03:25:19 PM Interpretation: Performing Lab: Notes/Report: [facility] , Color Urine LT. YELLOW YELLOW Clarity Urine CLEAR CLEAR Specific [place] Urine 1.015 1.005-1.025 pH Urine 6.5 5.0-9.0 Protein Urine NEGATIVE NEG/TRACE mg/dL Glucose Urine UA NEGATIVE NEGATIVE mg/dL Bilirubin Urine NEGATIVE NEGATIVE Ketones Urine NEGATIVE NEGATIVE mg/dL Blood Urine TRACE-I NEGATIVE Nitrite Urine NEGATIVE NEGATIVE Urobilinogen Urine 0.2 0.2-1.0 EU/dL Leukocyte Esterase Urine TRACE NEGATIVE WBC Urine 2-5 NONE SEEN #/HPF RBC Urine NONE SEEN 0-2 #/HPF Bacteria Urine NONE SEEN NONE SEEN #/HPF Mucus Urine NONE SEEN NONE SEEN Squamous Epithelial Cell Urine RARE NONE/RARE #/LPF Crystals Seen? None Seen None Seen #/HPF Cast Seen? NONE SEEN NONE SEEN #/LPF Urine Culture Indicated NO Performing Lab: see note ML - [facility] LB PROF 14(COMP METB) Reviewed date:01/18/2025 03:25:19 PM Interpretation: Performing Lab: Notes/Report: [facility] , Sodium 139 136-145 mmol/L Potassium 3.8 3.5-5.1 mmol/L Chloride 103 98-107 mmol/L Carbon Dioxide 29.3 21.0-32.0 mmol/L Anion Gap 10.5 Glucose 95 74-106 mg/dL Blood Urea Nitrogen 21.0 7.0-18.0 mg/dL Creatinine 0.99 0.55-1.02 mg/dL Estimated GFR ( Audrey >60 >=60 mL/min/1.73m 2 Estimated GFR (Non- Jessica 56 >=60 mL/min/1.73m 2 BUN Creatinine Ratio 21.2 Calcium 10.0 8.5-10.1 mg/dL Bilirubin Total 0.4 0.2-1.0 mg/dL Aspartate Amino Transferase 15 15-37 U/L Alanine Aminotransferase 27 14-59 U/L Alkaline Phosphatase 64 46-116 U/L Total Protein 7.2 6.4-8.2 g/dL Albumin Level 3.9 3.4-5.0 g/dL Globulin 3.3 Albumin Globulin Ratio 1.2 Performing Lab: see note ML - [facility] LB LIPASE Reviewed date:01/18/2025 03:25:19 PM Interpretation: Performing Lab: Notes/Report: [facility] , Lipase 31.0 16.0-77.0 U/L Performing Lab: see note ML - [facility] LB LACTATE or LACTIC ACID Reviewed date:01/18/2025 03:25:19 PM Interpretation: Performing Lab: Notes/Report: [facility] , Lactate/Lactic Acid 0.9 0.4-2.0 mmol/L Performing Lab: see note ML - [facility] LB CBC AUTO DIFF Reviewed date:01/18/2025 03:25:19 PM Interpretation: Performing Lab: Notes/Report: [facility] , White Blood Count 15.9 4.0-11.0 10 3/uL Red Blood Count 4.44 4.20-5.40 10 6/uL Hemoglobin 14.1 12.0-16.0 g/dL Hematocrit 41.6 36.0-48.0 % Mean Corpuscular Volume 93.7 81.0-99.0 fL Mean Corpuscular Hemoglobin 31.8 26.7-34.0 pg Mean Corpuscular HGB Conc 33.9 29.9-35.2 g/dL Red Cell Distribution Width 12.6 11.0-15.0 % Platelet Count 227 150-450 10 3/uL Mean Platelet Volume 9.6 9.5-13.5 fL Neutrophils Percent Auto 72.2 43.0-75.0 % Lymphocytes Percent Auto 19.5 20.5-60.0 % Monocytes Percent Auto 7.2 1.7-12.0 % Eosinophils Percent Auto 0.6 0.9-7.0 % Basophils Percent Auto 0.4 0.2-2.0 % Immature Granulocytes Pct Auto 0.1 0.0-0.5 % Neutrophils Absolute Auto 11.5 1.4-6.5 10 3/uL Lymphocytes Absolute Auto 3.1 1.2-3.8 10 3/uL Monocytes Absolute Auto 1.2 0.3-0.8 10 3/uL Eosinophils Absolute Auto 0.1 0.0-0.7 10 3/uL Basophils Absolute Auto 0.1 0.0-0.1 10 3/uL Immature Granulocytes Abs Auto 0.02 0.00-0.03 10 3/uL Performing Lab: see note ML - [facility] LB TSH Reviewed date:05/30/2024 05:11:55 PM Interpretation: Performing Lab: Notes/Report: [facility] , Thyroid Stimulating Hormone 3.007 0.358-3.740 u IU/mL Performing Lab: see note ML - [facility] LB PROF 14(COMP METB) Reviewed date:05/30/2024 05:11:55 PM Interpretation: Performing Lab: Notes/Report: [facility] , Sodium 140 136-145 mmol/L Potassium 4.1 3.5-5.1 mmol/L Chloride 103 98-107 mmol/L Carbon Dioxide 27.2 21.0-32.0 mmol/L Anion Gap 13.9 Glucose 81 74-106 mg/dL Blood Urea Nitrogen 14.0 7.0-18.0 mg/dL Creatinine 0.96 0.55-1.02 mg/dL Estimated GFR ( Audrey >60 >=60 Estimated GFR (Non- Jessica 59 >=60 BUN Creatinine Ratio 14.6 Calcium 9.2 8.5-10.1 mg/dL Bilirubin Total 0.9 0.2-1.0 mg/dL Aspartate Amino Transferase 24 15-37 U/L Alanine Aminotransferase 28 14-59 U/L Alkaline Phosphatase 54 46-116 U/L Total Protein 7.1 6.4-8.2 g/dL Albumin Level 4.1 3.4-5.0 g/dL Globulin 3.0 Albumin Globulin Ratio 1.4 Performing Lab: see note ML - [facility] LB LIPID PROFILE Reviewed date:05/30/2024 05:11:55 PM Interpretation: Performing Lab: Notes/Report: [facility] , Triglycerides 120 <=150 mg/dL Cholesterol 205 <=200 mg/dL HDL Cholesterol 70 40-60 mg/dL > or =60 mg/dl - LOW CARDIOVASCULAR RISK <40 mg/dl - HIGH CARDIOVASCULAR RISK LDL Cholesterol Calculated 111.0 <100 mg/dl OPTIMAL 160-189 mg/dl HIGH 100-129 mg/dl NEAR OR ABOVE OPTIMAL 130-159 mg/dl BORDERLINE HIGH >190 mg/dl VERY HIGH VLDL CHOLESTEROL 24.0 Chol HDL Ratio 2.9 7.1 - 11.0 MODERATE RISK 3.3 - 4.4 LOW RISK >11.0 HIGH RISK 4.4 - 7.1 AVERAGE RISK Performing Lab: see note ML - [facility] LB Reason For Referral No Information Medications Medication SIG (Take, Route, Frequency, Duration) Notes Start Date End Date Status Protonix 40 MG 1 tablet Orally Once a day for 30 days 03/21/2025 Active Synthroid 100 MCG 1 tablet in the morning on an empty stomach Orally Once a day Active Simvastatin 20 MG 1 tablet in the evening Orally Once a day for 90 days Active Vitamin D3 Dosoquin-200mcg Act aleida Levsin/SL 0.125 MG 1 tablet under the tongue and allow to dissolve as needed Sublingual QID for 8 days 03/25/2025 Active Tylenol PM Extra Strength 500-25 MG 1 tablet at bedtime as needed Orally Once a day PRN Active Aspirin Adult Low Dose 81 MG 1 tablet Orally Once a day Active Zinc 50 MG 1 tablet Orally Once a day Active Diclofenac Sodium 75 MG 1 tablet as needed Orally Twice a day for 30 days Active Cetirizine HCl 10 MG 1 tablet Orally Onc e a day Active Fosamax 70 MG 1 tablet 30 minutes before the first food, beverage or medicine of the day with plain water Orally Active DosoKap 137.5-200 MCG as directed Orally Active Protonix 40 MG 1 tablet Orally Once a day for 90 days Active Social History Tobacco Use: Social History Observation Description Date Details (start date - stop date) Never Smoker NA - NA Tobacco Use/Smoking Question Answer Notes Patient is a nonsmoker Alcohol Screen (Audit-C) Question Answer Notes Did you have a drink contain ing alcohol in the past year? Yes How often did you have 6 or more drinks on one occasion in the past year? Never (0 point) How many drinks did you have on a typical day when you were drinking in the past year? 1 or 2 drinks (0 point) How often did you have a dri nk containing alcohol in the past year? Less than monthly (1 point) Points 1 Interpretation Negative AUDIT-C (Standard) Question Answer Notes Did you have a drink contain ing alcohol in the past year? Yes How often did you have six o r more drinks on one occasion in the past year? Never (0 point) How many drinks did you have on a typical day when you were drinking in the past year? 1 or 2 drinks (0 point) How often did you have a dri nk containing alcohol in the past year? Monthly or less (1 point) Points 1 Interpretation Negative Problems Problem Type SNOMED Code ICD Code Onset Dates Problem Status W/U Status Risk Notes Problem 201992301 Malignant neoplasm of thyroid gland (C73) Active confirmed Problem Abdominal pain (R10.9) Active confirmed Problem Gastroesophageal reflux disease (248320837) GERD (gastroesophage al reflux disease) (K21.9) Active confirmed Problem Neck pain (38915474) Neck pain (M54.2) Active confirmed Problem Osteoporosis (20437962) Osteoporosis (M81.0) Active confirmed Problem Well adult (248565155) Well adult (Z00.00) Active confirmed Vital Signs Temperature 101.9 degrees Fahrenheit 11/22/2024 Blood pressure diastolic 78 mm Hg 03/21/2025 Height 67 in 03/21/2025 Blood pressure systolic 120 mm Hg 03/21/2025 Weight 180 lbs 03/21/2025 BMI 28.19 kg/m2 03/21/2025 Encounters Encounter Location Date Provider Diagnosis [facility] [address] [place] [address] 03/21/2025 George Szymanski GERD (gastroesophage al reflux disease) K21.9 [facility] [address] [place] [address] 11/22/2024 George Hoy Fever R50.9 and Influenza J11.1 [facility] [address] [place] [address] 05/30/2024 George Szymanski [facility] [address] [place] [address] 05/30/2024 George Szymanski [facility] [address] [facility] [place] [address] 06/09/2024 George Szymanski [facility] [address] [facility] [place] [address] 08/04/2024 George Szymanski [facility] [address] [facility] [place] [address] 01/18/2025 George Szymanski [facility] [address] [place] [facility] [place] [address] 03/22/2025 George Szymanski [facility] [address] [facility] [place] [address] 03/25/2025 George Szymanski Abdominal pain R10.9 [facility] [address] [facility] [place] [address] 04/22/2025 George Szymanski Encounter for other preprocedural examination Z01.818 Assessments Encounter Date Diagnosis (ICD Code) Assessment Notes Treatment Notes Treatment Clinical Notes Section Notes 11/22/2024 Fever (ICD-10 - R50.9) 03/21/2025 GERD (gastroesophageal reflux disease) (ICD-10 - K21.9) 03/25/2025 Abdominal pain (ICD-10 - R10.9) 04/22/2025 Encounter for other preprocedural examination (ICD-10 - Z01.818) 11/22/2024 Influenza (ICD-10 - J11.1) 11/22/2024 Other Rest and drink more liquids, especially water. You may use a humidifier or vaporizer to help keep the drainage moist. Kcth-ytd-suauez r Nasal Saline may help the stuffy and runny nose. Use Ibuprofen and or Tylenol as needed for fever, chills, body aches or pain. Children 5 years old should not be given wamn-sps-newtwi r cough and cold medications such as guaifenesin and dextromethorpha n. If you're over age 5, you may try bhul-sza-cmktrm r cold medications such as guaifenesin and dextromethorpha n, or multi-symptom cold reliever such as Dayquil to help reduce the symptoms. Follow up with your Primary Care Provider or return to clinic if symptoms do not improve within 3-5 days. If you develop severe symptoms such as shortness of breath, repeated vomiting, coughing up blood, or chest pain you should go to the emergency room or call 911. Plan Of Treatment Pending Test Test Name Order Date CMP (COMPLETE METABOLIC PANEL) HEMOGLOBIN A1C (GLYCO) 02/19/2024 IRON, TOTAL 02/19/2024 LIPID PANEL (CHOL/TRIG/HDL/LDL) 02/19/20 CBC WITH DIFF 02/19/2024 VITAMIN D, 25 LEVEL (TOTAL) 11/10/2023 VITAMIN D, 25 LEVEL (TOTAL) 02/19/2024 CT Abdomen and Pelvis w/contrast * 03/24 BUN + CREATININE 04/02/2024 CREATININE 04/22/2025 Insulin Level 02/19/2024 CT ABD and PELV W CON 03/25/2025 US PELVIS 02/19/2024 XR CSPINE MIN 4 VIEWS 11/10/2023 THYROID PANEL (T4/TSH/FREE T3) 4 THYROID PANEL (T4/TSH/FREE T3) 4 Insurance Providers Payer Name Payer Address Payer Phone Subscriber Number Group Number Insured Name Patient Relationship to Insured Coverage Start Date Coverage End Date MMO [employer] [address] [place] [address] [id number] Martita Delaney Self - patient is the insured Medical (General) History Medical History History ICD Code COVID-19 U07.1 Cervical radiculopathy M54.12 Hypercholesterolemia E78.00 Low back pain 724.5 Malignant neoplasm of thyroid gland C73 Nephrolithiasis N20.0 Osteopenia M85.80 Pulmonary embolism I26.99 Shoulder impingement syndrome M75.40 Cervical spondylosis M47.812 Tubular adenoma of colon D12.6 Surgical History Surgery Date(Month/Year) Appendectomy 01/2025 egd 09/08/24 Removal Fallopian Tube 03/12/2019 Bilateral Oopherectomy 03/12/2019 THYROIDECTOMY-TOTAL
--- OUTSIDE RECORDS SUMMARY | 2025-04-22 13:24 | XMS_ITS | Clinical Summary ---
Author Organization [facility] Address [address] [place], [place] [id number] Care Team Providers Care Stave Cutting Supervisor Name Role Phone Ahsan Szymanski MD Primary Care Provider [phone] Allergies No known active allergies Medications Cetirizine 10 mg cap Take by mouth. Active pantoprazole DR (PROTONIX) 40 mg tablet Take 40 mg by mouth once daily. Active alendronate (FOSAMAX) 70 mg tablet Take 70 mg by mouth one time a week. In AM with cup of water on empty stomach. Nothing else by mouth and stay upright for 30 min. Active simvastatin (ZOCOR) 20 mg tablet Take 20 mg by mouth daily at bedtime. Active Zinc 50 mg tab Take by mouth. Active diphenhydrAMINE -Acetaminophen (TYLENOL PM EXTRA STRENGTH) 25-500 mg tab Take by mouth. Active BABY ASPIRIN ORAL Take by mouth. Active vitamin D3-vitamin K2 (DOSOKAP) 137.5-200 mcg tab Take by mouth. Active levothyroxine (SYNTHROID) 100 mcg tablet Take 1 tablet by mouth once daily. 90 tablet 3 06/10/2024 Active Active Problems Problem Noted Date Diagnosed Date History of thyroid cancer 06/07/2015 Malignant neoplasm of thyroid gland 05/30/2014 Family History Medical History Relation Comments Skin Cancer Brother Stomach Cancer [Other] Father Colon Cancer Paternal Grandmother Relation Status Comments Brother Father Paternal Grandmother Social History Tobacco Use Types Packs/Day Years Used Date Smoking Tobacco: Never Smokeless Tobacco: Never Tobacco Cessation:Counseling Given: Not Answered Alcohol Use Standard Drinks/Week Comments Not Asked 0 (1 standard drink = 0.6 oz pur e alcohol) PHQ-2 Answer Date Recorded PHQ-2 score 0 07/06/2024 Area Deprivation Index Answer Date Priyank rded National Score (1-100), lower number is lower ri sk 64 07/06/2024 State Score (1-10), lower number is lower risk 4 07/06/2024 Data from: https://www.neighborhoodatlas.medicine.[facility]/. Last address used for calculation [address] 07/06/2024 Comments No Sex and Gender Information Value Date Recorded Sex Assigned at Not on file Legal Sex Female 10:13 AM EST Gender Identity Not on file Sexual Orientation Not on file Last Filed Vital Signs Vital Sign Reading Time Taken Comments Blood Pressure 146/87 07/06/2024 3:51 PM EDT Pulse 70 07/06/2024 3:51 PM EDT Temperature 36.6 C (97.8 F) 07/06/2024 3:51 PM EDT Respiratory Rate 16 07/06/2024 3:51 PM EDT Oxygen Saturation 99% 07/06/2024 3:51 PM EDT Inhaled Oxygen Concentration - - Weight 81 kg (178 lb 9.2 oz) 07/06/2024 3:51 PM EDT Height - - Body Mass Index - - Plan of Treatment Upcoming Encounters Date Type Department Care Team (Late st Contact Info) Description 06/30/2025 3:45 PM EDT Office Visit [facility] [address] [place] [address] labs 07/14/2025 1:30 PM EDT Office Visit Radiation Oncology [address] [place] [address] Patience Villegas MD [address] [place] [address] [place] [address] 1 year follow up Health Maintenance Due Date Last Done Comments Anxiety Screening 1978 Depression Screening 1978 HIV Screening 1978 Hepatitis C Screening 1978 Cervical Cancer Screening [address] Colonography 2005 Cologuard (FIT-DNA) 2005 Colonoscopy 2005 Colorectal Cancer Screening 2005 Diabetes Screening 2005 Fecal Occult Blood 2005 Lipid Screening 2005 Sigmoidoscopy 2005 Pneumococcal Vaccine: 50+ (1 of 1 - PCV) 2010 Covid-19 Vaccine (4 - 2023-2 5 season) 2024 11/08/2021, 02/26/2021, 01/17/2021 Influenza Vaccine (#1) 2025 , 07/14/2022, 07/03/2021, Additional history exists DTaP,Tdap,Td Vaccine (2 - Td or Tdap) 12/11/2026 12/11/2016 RSV Vaccine (1 - 1-dose 75+ series) 2035 Shingrix Vaccine Completed 05/09/2022, 11/08/2021 Insurance PPO Member Subscriber Plan / Payer (Ef fective 2019-Present) Name:Martita Delaney Relation to Subscriber:Self Name:Martita Delaney Payer ID:Not on file Type:PPO Address: [place] [id number] Care Teams Stave Cutting Supervisor Relationship Specialty Start Date End Date Ahsan Szymanski MD PCP - General Family Medicine 01/29/12
--- OUTSIDE RECORDS SUMMARY | 2025-04-22 13:24 | XMS_ITS | Clinical Summary ---
Author Organization [facility] Address [address] [place] [address] Care Team Providers Care Senior Accounting Specialist Name Role Phone Ahsan Szymanski MD Primary Care Provider [phone] Social History Tobacco Use Types Packs/Day Years Used Date Smoking Tobacco: Never Assessed Comments Unknown Sex and Gender Information Value Date Recorded Sex Assigned at Not on file Legal Sex Female 9:22 AM EST Gender Identity Not on file Sexual Orientation Not on file Plan of Treatment Not on file Care Teams Senior Accounting Specialist Relationship Specialty Start Date End Date Ahsan Szymanski MD [address] [place] [id number] PCP - General 03/26/13
--- NOTE | 2025-04-22 13:35 | CT_ITS ---
The [address] [address] Patient Name: IRAJ MOFFETT MRN: [id number] date: 1960 Sex: F Assigned Patient Location: LAB Current Patient Location: LAB Accession/Order Number: [id number] Exam Date: 04/22/2025 19:57 Report Date: 04/22/2025 20:05 At the request of: ULISES BACK MD Procedure: CT abdomen pelvis w con CT Abdomen and Pelvis withcontrast TECHNIQUE: Axial imaging with 2-D reconstruction.100 cc of Omnipaque 300. The CT exam was performed using one or more the following dose reduction techniques: Automated exposure control, adjustment of the MA and/or Kv according to patient size, or use of the iterative reconstruction technique. COMPARISON: 01/18/2025 History: Right lower quadrant abdominal pain for 3 months. Prior appendectomy. Stabbing pain. Worsening. LIMITATIONS: None LOWER THORAX Unremarkable LIVER: Superiormost extent of liver not included imaging. GALLBLADDER: No gallbladder abnormality identified. BILE DUCTS: No dilatation SPLEEN: Unremarkable PANCREAS: Unremarkable ADRENAL GLANDS: Unremarkable KIDNEYS:Unremarkable AORTA: No abdominal aortic aneurysm identified. RETROPERITONEUM: No significant retroperitoneal abnormalities identified. MESENTERY:Unremarkable STOMACH:Unremarkable SMALL BOWEL: The small bowel loops are nondistended. APPENDIX: Appendectomy changes identified. COLON: Moderate burden of stool throughout the colon. URINARY BLADDER: Urinary bladder is unremarkable. REPRODUCTIVE SYSTEM: Reproductive structures are unremarkable. PNEUMOPERITONEUM: None PERITONEAL FLUID:None BONY STRUCTURES: Unremarkable ABDOMINAL WALL: Unremarkable CT/CT abdomen pelvis w con IMPRESSION: Uncomplicated appendectomy. No fluid collection. Moderate constipation. no abdominal wall abnormality. No obstructive uropathy. Impression dictated by: Porfirio Steward M.D. 04/22/2025 8:05 PM Dictation Location: [employer] Electronically authenticated by: [id number] Y Date: 04/22/2025 20:05
[2025-04-22 14:14] LABS: Estimated GFR (African America >60 (>=60 mL/min/1.73m^2); Estimated GFR (Non-African Ame >60 (>=60 mL/min/1.73m^2)
== END 2025-04-22 13:22 | disposition home or self-care (01) ==
LOC: LAB 13:22
PROVIDERS: PCP Family Medicine; Visit Provider Family Medicine
DX: R10.9 Unspecified abdominal pain (principal); K59.00 Constipation, unspecified
CPT/HCPCS: 36415; 74177; 82565; Q9967